=== PATIENT | male | born 1955 | race Caucasian/White ===

== ENCOUNTER 2021-12-05 19:23 | Inpatient (IN) | payer MEDICARE, OTHER, SELFPAY ==
[2021-12-05] VITALS (8 sets, daily range): BP systolic 126–180; BP diastolic 81–114; PULSE 71–80; RESP 12–20; TEMP 36.2–36.7; O2SAT 91–100; BMI 33.5
--- NOTE | ~2021-12-05 | XR_ITS ---
EXAMINATION: XR chest 1V portable Exam Date/Time: 12/05/2021 19:55 CDT HISTORY: stemi Comparison: None available. RESULT: Lines, tubes, and devices: None. Lungs and pleura: Clear. Cardiomediastinal silhouette: Unremarkable cardiomediastinal silhouette. Other: No acute osseous or upper abdominal finding. IMPRESSION: No acute cardiopulmonary process. Reviewed, dictated and finalized at location K.
--- NOTE | 2021-12-05 19:56 | ECG_ITS ---
Measurements Intervals [place] Rate: 79 P: 90 OK: 227 QRS: -5 QRSD: 186 T: 53 QT: 463 QTc: 531 Interpretive Statements SINUS RHYTHM WITH FIRST DEGREE AV BLOCK LEFT BUNDLE BRANCH BLOCK [120+ ms QRS DURATION, 80+ ms Q/S IN V1/V2, 85+ ms R IN I/aVL/V5/V6] ACUTE INFERIOR AND ANTERIOR INJURY PATTERN ABNORMAL ECG NO PREVIOUS ECG AVAILABLE FOR COMPARISON Electronically Signed On 12-06-2021 10:21:26 CDT by George Delacruz M.D.
[2021-12-05 20:00] LABS: Basophils Absolute Auto 0.1 K/mm3 (0.0-0.1); Basophils Percent Auto 0.7 % (0.2-1.2); Eosinophils Absolute Auto 0.1 K/mm3 (0-0.3); Eosinophils Percent Auto 1.2 % (0-4.4); Hematocrit 47.2 % (42.0-52.0); Immature Granulocyte Absolute 0.04 K/mm3 (0.00-0.031); Immature Granulocyte Percent A 0.4 % (0-0.5); Lymphocytes Absolute Auto 2.79 K/mm3 (0.9-3.2); Lymphocytes Percent Auto 28.5 % (18.3-44.2); Mean Corpuscular HGB Conc 33.9 g/dl (32-36); Mean Corpuscular Hemoglobin 28.2 pg (26-34); Mean Corpuscular Volume 83.2 fl (80-100); Mean Platelet Volume 9.9 fl (7.4-10.4); Monocytes Absolute Auto 1.4 K/mm3 (0.1-0.6); Monocytes Percent Auto 14.1 % (2.6-8.5); Neutrophils Absolute Auto 5.4 K/mm3 (1.3-6.7); Neutrophils Percent Auto 55.1 % (45.5-73.1); Platelet Count Result 288 k/mm3 (150-375); Red Blood Count 5.67 M/mm3 (4.6-6.20); Red Cell Distribution Width 15.1 % (11.5-14.5); White Blood Count 9.8 K/mm3 (4.5-10.0)
[2021-12-05 20:01] LABS: Partial Thromboplastin Time 26.8 SECONDS (22.3-36.8)
[2021-12-05 20:03] LABS: Alanine Aminotransferase 32 U/L (6-50); Albumin Level 4.5 g/dL (3.5-5.1); Alkaline Phosphatase 117 U/L (38-126); Anion Gap 10 mmol/L (8-16); Aspartate Amino Transferase 35 U/L (17-59); Bilirubin,Total 0.4 mg/dL (0.2-1.3); Blood Urea Nitrogen 14 mg/dL (9-20); Calcium 9.6 mg/dL (8.4-10.2); Carbon Dioxide 25 mmol/L (22-30); Chloride 110 mmol/L (98-107); Glucose 103 mg/dL (65-110); Potassium 3.4 mmol/L (3.4-5.0); Sodium 145 mmol/L (137-145)
[2021-12-05 20:06] LABS: Troponin I < 0.012 ng/mL (0.000-0.034)
--- NOTE | 2021-12-05 20:12 | ED.CHESTPAIN ---
HPI - Chest Pain General Chief Complaint: Chest Pain Stated Complaint: chest pain History of Present Illness HPI narrative: Patient is a 65-year-old male who presents ER with chest pain. Sudden onset at home. Contacted EMS. In the field EMS declared inferior STEMI. Patient with central pressure and burning pain without radiation. He is diaphoretic with some shortness of breath. No nausea. Has history of TX in the past. He has 1 coronary stent. He took 4 baby aspirin's at home. Related Data Allergies Allergy/AdvReac Type Severity Reaction Status Date / Time ethosuximide Allergy Unknown Anything Verified 08/11/17 10:35 with suxx No Known Allergies Allergy Unverified 02/05/11 10:32 Review of Systems Review of Systems: All systems reviewed & are unremarkable except as noted in HPI and below Constitutional: Constitutional: Denies fever(s) and Reports weakness Comments: Sweats Cardiovascular: Cardiovascular: Reports chest pain, Denies rapid heart rate and Denies radiating jaw, neck or arm pain Respiratory: Respiratory: Denies cough and Reports dyspnea Gastrointestinal: Gastrointestinal: Denies abdominal pain, Denies diarrhea, Reports nausea and Denies vomiting Neurologic: Denies focal weakness and Denies numbness PMFSH Past Medical History Medical History (Updated 12/05/21 @ 21:29 by Ned Romero MD) Coronary artery disease Hyperlipidemia Hypertension Surgical History Surgical History (Updated 12/05/21 @ 20:17 by Chris Scherer MD) Stented coronary artery Social History Social History Smoking status: Current every day smoker Alcohol intake: current Exam Narrative: GENERAL: Ill-appearing, well-nourished, and in moderate distress. HEAD: Normocephalic, atraumatic. EYES: PERRL and EOMI. ENT: Mucous membranes moist. CHEST: Clear to auscultation. No respiratory distress. HEART: Regular rate and rhythm. Normal peripheral pulses. ABDOMEN: Soft, nontender, nondistended. EXTREMITIES: Normal range of motion. No edema. SKIN: Warm, diaphoretic, no rash. NEURO: Alert and oriented x3. PSYCH: Normal mood and affect. Course Course Emergency Course: STEMI activated prehospital. Discussed case with interventional cardiology prior to patient arrival in the ER. Patient arrived and received heparin as well as morphine for pain. While waiting to go to [employer] patient went into V. fib arrest. This occurred at 1943. He received a total of 5 defibrillations at 200 J. He received 1 dose of epinephrine IV. He also received amiodarone 150 mg IV for refractory V. fib shock. Patient then had return of spontaneous circulation at 1950. He is awake alert and oriented x3. He received 4 mg of Zofran after he started having emesis and 1953. I had been in contact with patient's pre-, during, and postarrest. She is aware of the patient's status. Vital Signs Vital signs: Vital Signs Temperature 98.0 F 12/05/21 19:58 Pulse Rate 78 12/05/21 19:58 Respiratory Rate 12 12/05/21 19:58 Blood Pressure 180/114 H 12/05/21 19:58 Pulse Oximetry 99 12/05/21 19:58 Oxygen Delivery Room Air 12/05/21 19:58 Temperature 98.0 F 12/05/21 19:58 Pulse Rate 78 12/05/21 19:58 Respiratory Rate 12 12/05/21 19:58 Blood Pressure 180/114 H 12/05/21 19:58 Pulse Oximetry 99 12/05/21 19:58 Oxygen Delivery Room Air 12/05/21 19:58 MDM - Chest Pain Lab Data Result diagrams: 12/05/21 19:31 12/05/21 19:31 Labs: Lab Results 12/05/21 12/05/21 12/05/21 Range/Units 19:31 19:31 19:31 WBC 9.8 (4.5-10.0) K/mm3 RBC 5.67 (4.6-6.20) M/mm3 Hgb 16.0 (14.0-18.0) g/dL Hct 47.2 (42.0-52.0) % MCV 83.2 (80-100) fl MCH 28.2 (26-34) pg MCHC 33.9 (32-36) g/dl RDW 15.1 H (11.5-14.5) % Plt Count 288 (150-375) k/mm3 MPV 9.9 (7.4-10.4) fl Immature Gran % (Auto) 0.4 (0-0.5) % Neut % (Auto) 55.1 (45.5-7
[2021-12-05 20:13] LABS: Cholesterol 183 mg/dL (0-200); HDL Direct 59 mg/dL; Triglycerides 171 mg/dL (<150)
--- NOTE | 2021-12-05 20:13 | PM.CNCAR ---
Assessment and Plan Assessment and plan (1) STEMI (ST elevation myocardial infarction): Code(s): I21.3 - ST elevation (STEMI) myocardial infarction of unspecified site Status: Acute Assessment and Plan: STEMI, s/p VF arrest, plan emergency LHC, ASA, Ticagrelor, Statin, Heparin, B-eryn and TTE Plan STEMI, s/p VF arrest, plan emergency LHC, ASA, Ticagrelor, Statin, Heparin, B-eryn and TTE History of Present Illness History of Present Illness Consult date/time: 12/05/21 20:13 Reason For Visit: chest pain Narrative: 70 Yrs old male with Hx of CAD and prior PCI 10 years ago presented with acute chest pain started one hour ago, sudden onset, severe retrosternal non radiating tightness no precipitating or relieving factors, associated with sweating and nausea. Soon after arrival to ER he developed VF and with successful defibrillation. Review of Systems Review of Systems: All systems reviewed & are unremarkable except as noted in HPI and below PMFSH Past Medical History Medical History (Updated 12/05/21 @ 20:19 by Chris Scherer MD) Coronary artery disease Hypertension Surgical History Surgical History (Updated 12/05/21 @ 20:17 by Chris Scherer MD) Stented coronary artery Social History Social History Smoking status: Current every day smoker Alcohol intake: current Meds Home Medications and Allergies Allergies Allergy/AdvReac Type Severity Reaction Status Date / Time ethosuximide Allergy Unknown Anything Verified 08/11/17 10:35 with suxx No Known Allergies Allergy Unverified 02/05/11 10:32 Exam Const: General: cooperative, healthy appearing, comfortable and no acute distress Other: Able to lie flat HENMT: Head: normal to inspection, normocephalic and atraumatic General nose exam: Normal nares present and no epistaxis Mouth: Yes moist mucous membranes Eyes: Sclera: sclerae normal Pupils: Equal, round and reactive pupils present Neck: Neck: supple and no JVD Carotids: no bruits Resp: Auscultation: clear to auscultation bilaterally and lung sounds not diminished Other: No chest wall tenderness Cardio: Rate: regular rate Rhythm: regular rhythm Heart sounds: no gallops, no murmurs and no rubs GI: GI Palp: Yes Soft to palpation and No Tenderness to palpation present (GI) Auscultation: normal bowel sounds Skin: General skin exam: normal color, rashes and/or lesions noted and no erythema Other: Warm Neuro: Cranial nerves: Yes Equal, round and reactive pupils present Speech: normal speech Other: No obvious focal deficit or facial asymmetry Extrem: General: no edema Other: Normal capillary refills Intact distal pulses. Results Labs and Meds Result diagrams: 12/05/21 19:31 12/05/21 19:31 Lab results: Cardiac Enzymes 12/05/21 Range/Units 19:31 AST 35 (17-59) U/L Troponin I < 0.012 (0.000-0.034) ng/mL Coagulation 12/05/21 Range/Units 19:31 PT 13.0 (11.1-14.7) Seconds APTT 26.8 (22.3-36.8) SECONDS CBC 12/05/21 Range/Units 19:31 WBC 9.8 (4.5-10.0) K/mm3 RBC 5.67 (4.6-6.20) M/mm3 Hgb 16.0 (14.0-18.0) g/dL Hct 47.2 (42.0-52.0) % Plt Count 288 (150-375) k/mm3 Lymph # (Auto) 2.79 (0.9-3.2) K/mm3 Kinney # (Auto) 1.4 H (0.1-0.6) K/mm3 Eos # (Auto) 0.1 (0-0.3) K/mm3 Baso # (Auto) 0.1 (0.0-0.1) K/mm3 Comprehensive Metabolic Panel 12/05/21 Range/Units 19:31 Sodium 145 (137-145) mmol/L Potassium 3.4 (3.4-5.0) mmol/L Chloride 110 H (98-107) mmol/L Carbon Dioxide 25 (22-30) mmol/L BUN 14 (9-20) mg/dL Creatinine 0.90 (0.7-1.3) mg/dL Glucose 103 (65-110) mg/dL Calcium 9.6 (8.4-10.2) mg/dL AST 35 (17-59) U/L ALT 32 (6-50) U/L Alkaline Phosphatase 117 (38-126) U/L Total Protein 8.0 (6.3-8.2) g/dL Albumin 4.5 (3.5-5.1) g/dL
--- NOTE | 2021-12-05 20:17 | PC.NURSE ---
Addendum entered by Lanie Gasca RN 12/05/21 20:22: Pt's currently in [facility] with daughter. Original Note: This RN and EDP Nick spoke to pt's via phone and updated her on change in pt's condition and transport of pt to lab coordinator. 's name: Beverly Brady (Maggie). PHONE: [phone].
--- NOTE | 2021-12-05 20:19 | WPDCARDPROC ---
Cardiac Cath Procedure Note Date of procedure:: 12/05/21 Performing physician:: Chris Scherer MD Assessment and Plan Additional Plan PROCEDURE 1. LHC and coronary angiogram 2. PCI to culprit lesion of [place] with JAM INDICATION STEMI PROCEDURE DETAILS Consent obtained and access site prepped and draped in sterile fashion Time out was done Sedation was done with versed 1 mg and fentanyl 50 mcg with continuos monitoring and supervision by myself and RN, duration of sedation 26 min. Access Obtained in Rt ENTERTAINER OR VARIETY ARTIST with modified Seldinger technique Coronary angiogram was done using JL and JR HEMODYNAMICS Aorta: 140/70 LV: 20 CORONARY ANGIOGRAM Left main: bifurcates into LAD and LCX, no angiographic significant stenosis LAD: large vessel that gives diagonal branches, no angiographic significant stenosis LCX: Non dominant vessel that gives OM branches, no angiographic significant stenosis RCA: Dominant vessel that gives PDA and rPL, patent stent proximally and mid RCA acute total occlusion with thrombus, distal RCA at bifurcation has 60% stenosis. PCI DETAILS #1 lesion: mid RCA Pre-intervention: 100% occlusion, JAMIE 0 flow, ISR/IST, previously treated lesion, unknown type > 2 years ago Guide catheter: JR4 Guide wire: [employer] used to cross lesion into distal vessel Balloon angioplasty: Ho Pro 3.0 * 12 Stent: Orsiro 3.0 * 18 deployed at [place] of stenosis Post stent dilation with 3.25 * 12 NC ho balloon Post-intervention: 0% residual stenosis COMPLICATION: VF during procedure that was converted with Defib Access site closed with angioseal successfully with intact distal pulses CONCLUSION Successful PCI to mid RCA with one JAM Orsiro 3.0 * 18 JAM post dilated with 3.25 NC balloon VF s/p Defib RECOMMENDATION DAPT Statin TTE Cardiac Rehab Amiodarone infusion for 24 hours
[2021-12-05 20:24] LABS: LDL Cholesterol Direct 86 mg/dL
[2021-12-05 21:37] LABS: Activated Clotting Time 196 SEC (74-137)
[2021-12-05] MEDS: SODIUM CHLORIDE 0.9% IV 1,000 ML 125 ML IV CONT (21:50)
--- NOTE | 2021-12-05 22:09 | ADMGEN ---
This patient, Mina Brady, was admitted to Intensive Care Unit-10 at 2140 on 12/05/2021. Patient/family oriented to hospital policies and general routines including ID bracelet, bed and alarms, visiting hours, pain management, procedures, bathroom and other care routines, personal items, smoking policy, room service/diet, and visiting hours. Information on how to activate the Rapid Response Team has been discussed. Patient/Family are encouraged to report perceived risks to care and to ask questions if they do not understand what they are told or what they should do.
[2021-12-05] MEDS: METOPROLOL TARTRATE 50 MG TAB PO (22:28)
[2021-12-05] MEDS: TICAGRELOR 90 MG TABLET 180 MG PO (22:36)
[2021-12-06] VITALS (24 sets, daily range): BP systolic 114–159; BP diastolic 70–99; PULSE 55–73; RESP 10–18; TEMP 36–37.2; O2SAT 93–100
--- NOTE | 2021-12-06 | ECHO_ITS ---
Patient Info Name: Mina Brady Age: 66 years : 1955 Gender: Male Ht: 74 in Wt: 261 lbs BSA: 2.52 m2 HR: 68 bpm BP: 150 / 85 mmHg Heart Rhythm: Sinus Rhythm Technical Quality: Fair Exam Date: 12/06/2021 8:29 AM Exam Location: [facility] Patient Status: Inpatient Admit Date: 12/06/2021 Staff Ordering Physician: Chris Scherer MD Finance Intern: Linda Angel RDCS Attending Provider: Chris Scherer MD Exam Type: CA echo doppler color flow Study Info Indications - STEMI Complete two-dimensional, color flow and Doppler transthoracic echocardiogram is performed. Summary 1. Complete two-dimensional, color flow and Doppler transthoracic echocardiogram is performed. 2. Left ventricular chamber dimension is mildly enlarged. 3. Left ventricular systolic function is severely reduced, estimated at 25-30%. 4. There is mildly increased left ventricular wall thickness. 5. The left ventricular diastolic function is grade I diastolic dysfunction. 6. The inferior wall, basal inferoseptal, mid inferoseptal, basal anteroseptal, and mid anteroseptal are akinetic. 7. The anterior wall, anterolateral wall, inferolateral wall, apical septum, and apical cap are hypokinetic. 8. Right ventricular systolic function is reduced. 9. There is mild mitral valve regurgitation. 10. There is mild tricuspid valve regurgitation. 11. There is mild pulmonic regurgitation. Left Ventricle Left ventricular chamber dimension is mildly enlarged. Left ventricular systolic function is severely reduced, estimated at 25-30%. There is mildly increased left ventricular wall thickness. The left ventricular diastolic function is grade I diastolic dysfunction. The inferior wall, basal inferoseptal, mid inferoseptal, basal anteroseptal, and mid anteroseptal are akinetic. The anterior wall, anterolateral wall, inferolateral wall, apical septum, and apical cap are hypokinetic. Right Ventricle Right ventricular chamber dimension is normal. Right ventricular systolic function is reduced. Left Atria Left atrial chamber dimension is normal. Right Atria Right atrial chamber dimension is normal. Atrial Septum Intact interatrial septum visualized by color flow imaging. Aortic Valve The aortic valve is trileaflet. There is moderate aortic valve sclerosis. There is no aortic valve stenosis. There is trace aortic valve regurgitation. Pulmonic Valve The pulmonic valve is normal. There is no pulmonic valve stenosis. There is mild pulmonic regurgitation. Mitral Valve The mitral valve has normal leaflets. There is no mitral valve stenosis. There is mild mitral valve regurgitation. Tricuspid Valve The tricuspid valve leaflets are normal. There is no significant tricuspid valve stenosis. There is mild tricuspid valve regurgitation. No pulmonary hypertension, estimated pulmonary arterial systolic pressure is 31 mmHg. Pericardium/Pleural The pericardium appears normal. There is no pericardial effusion. Inferior Vena Cava Dilated inferior vena cava with <50% collapse upon inspiration consistent with elevated right atrial pressure, 15 mmHg. Aorta The aortic root size at the sinus of Valsalva is normal. There is mild aortic atherosclerosis. Left Ventricular Outflow Tract Name Value Normal
[2021-12-06] MEDS: AMIODARONE 360 MG/D5W 200 ML 360 MG/200 ML BAG 33.33 MG IV CONT (00:23)
--- NOTE | 2021-12-06 02:17 | PC.NURSE ---
19:42 Compressions started 19:43 200 joule shock administered 19:43 1 of epinephrine administered 19:43 200 joule shock administered 19:44 200 joule shock administered 19:45 pulse check and compressions continued 19:46 200 joule shock administered 19:47 pulse check and compressions continued 19:47 150 of Amiodarone given 19:48 200 joule shock administered 19:49 200 joule shock administered 19:50 Pulse returned and patient alert 19:51 BP:215/105, 99%, 106 HR 19:52 Pt vomited 500-600 mL 19:54 4mg Zofran administered 19:55 177/110, 97%, 119 HR 20:00 157/105, 98%, 108 HR 20:02 Pt placed on 2L NC for transport 20:04 Pt taken to Heavy Equipment Plumbing Supervisor by dental laboratory technician team *Also see STEMI order sheet*
[2021-12-06] MEDS: oxyCODONE/ACETAMINOPHEN (*CRX) 5-325 MG TABLET 1 TABLET PO ×4 (05:44→22:22)
[2021-12-06] MEDS: AMIODARONE 360 MG/D5W 200 ML 360 MG/200 ML BAG 16.67 MG IV CONT ×2 (05:58→16:40)
[2021-12-06 07:39] LABS: Hematocrit 43.9 % (42.0-52.0); Hemoglobin 14.5 g/dL (14.0-18.0); Mean Corpuscular Hemoglobin 27.8 pg (26-34); Mean Corpuscular Volume 84.3 fl (80-100); Mean Platelet Volume 10.2 fl (7.4-10.4); Platelet Count Result 232 k/mm3 (150-375); Red Blood Count 5.21 M/mm3 (4.6-6.20); Red Cell Distribution Width 15.2 % (11.5-14.5); White Blood Count 9.3 K/mm3 (4.5-10.0)
[2021-12-06 07:51] LABS: Anion Gap 5 mmol/L (8-16); Blood Urea Nitrogen 12 mg/dL (9-20); Calcium 8.7 mg/dL (8.4-10.2); Carbon Dioxide 25 mmol/L (22-30); Chloride 107 mmol/L (98-107); Estimated CRCL calculation 120 ml/min; Estimated Glomerular Filt Rate > 60; Glucose 131 mg/dL (65-110); Magnesium 1.8 mg/dL (1.6-2.3); Phosphorus 3.4 mg/dL (2.5-4.5); Sodium 137 mmol/L (137-145)
--- NOTE | 2021-12-06 08:26 | PM.PNCARD ---
Progress Note: A&P Assessment and Plan (1) STEMI (ST elevation myocardial infarction): Code(s): I21.3 - ST elevation (STEMI) myocardial infarction of unspecified site Status: Acute Assessment and Plan: STEMI, s/p VF arrest, now s/p coronary angiography with PCI to mid RCA with one Orsiro 3.0 x 18 JAM ASA, Brilinta, Statin, B-eryn 2D echo with Doppler Aggressive risk modification for CAD Anticipate discharge tomorrow if he remains stable Continue telemetry (2) Cardiac arrest with ventricular fibrillation: Code(s): I46.9 - Cardiac arrest, cause unspecified; I49.01 - Ventricular fibrillation Status: Acute Assessment and Plan: VF in ED and in dental laboratory assistant s/p defibrillation. Continue amiodarone for at least 24 hours Continue to monitor on telemetry Check BMP, mag in a.m. Additional Plan PROCEDURE 1. LHC and coronary angiogram 2. PCI to culprit lesion of [place] with JAM INDICATION STEMI PROCEDURE DETAILS Consent obtained and access site prepped and draped in sterile fashion Time out was done Sedation was done with versed 1 mg and fentanyl 50 mcg with continuos monitoring and supervision by myself and RN, duration of sedation 26 min. Access Obtained in Rt CABLE DRILLER with modified Seldinger technique Coronary angiogram was done using JL and JR HEMODYNAMICS Aorta: 140/70 LV: 20 CORONARY ANGIOGRAM Left main: bifurcates into LAD and LCX, no angiographic significant stenosis LAD: large vessel that gives diagonal branches, no angiographic significant stenosis LCX: Non dominant vessel that gives OM branches, no angiographic significant stenosis RCA: Dominant vessel that gives PDA and rPL, patent stent proximally and mid RCA acute total occlusion with thrombus, distal RCA at bifurcation has 60% stenosis. PCI DETAILS #1 lesion: mid RCA Pre-intervention: 100% occlusion, JAMIE 0 flow, ISR/IST, previously treated lesion, unknown type > 2 years ago Guide catheter: JR4 Guide wire: [place] used to cross lesion into distal vessel Balloon angioplasty: Ho Pro 3.0 * 12 Stent: Orsiro 3.0 * 18 deployed at [place] of stenosis Post stent dilation with 3.25 * 12 NC ho balloon Post-intervention: 0% residual stenosis COMPLICATION: VF during procedure that was converted with Defib Access site closed with angioseal successfully with intact distal pulses CONCLUSION Successful PCI to mid RCA with one JAM Orsiro 3.0 * 18 JAM post dilated with 3.25 NC balloon VF s/p Defib RECOMMENDATION DAPT Statin TTE Cardiac Rehab Amiodarone infusion for 24 hours Subjective Date/time seen: 12/06/21 08:26 Cardiology follow up for STEMI, VF arrest Stable overnight following cath. Self limiting NSVT (5-6 beats) on telemetry. Vitals stable. No chest pain this morning, no shortness of breath. Denies palpitations. Still has rib soreness from chest compressions. Review of Systems Review of Systems: All systems reviewed & are unremarkable except as noted in HPI and below Exam Const: General: cooperative, healthy appearing, comfortable and no acute distress Other: Able to lie flat HENMT: Head: normal to inspection, normocephalic and atraumatic General nose exam: Normal nares present and no epistaxis Mouth: Yes moist mucous membranes Eyes: Sclera: sclerae normal Pupils: Equal, round and reactive pupils present Neck: Neck: supple and no JVD Carotids: no bruits Resp: Auscultation: clear to auscultation bilaterally and lung sounds not diminished Other: No chest wall tenderness Cardio: Rate: regular rate Rhythm: regular rhythm Heart sounds: no gallops, no murmurs and no rubs GI: Auscultation: normal bowel sounds Skin: General skin exam: normal color, rashes and/or lesions noted and no erythema Other: Warm. R groin arterial access site free from bleeding, hematoma, bruit. Neuro: Cranial nerves: Yes Equal, round and reactive pupils present Speech: normal speech Other:
[2021-12-06] MEDS: ASPIRIN 81 MG ENTERIC TABLET PO (08:34)
[2021-12-06] MEDS: ATORVASTATIN 40 MG TABLET 80 MG PO (08:34)
[2021-12-06] MEDS: lisinopriL 5 MG TABLET PO (08:34)
[2021-12-06] MEDS: METOPROLOL TARTRATE 50 MG TAB PO ×2 (08:34→20:12)
[2021-12-06] MEDS: TICAGRELOR 90 MG TABLET PO ×2 (08:34→20:12)
[2021-12-06] MEDS: SODIUM CHLORIDE 0.9% IV 1,000 ML 100 ML IV CONT (08:41)
--- NOTE | 2021-12-06 09:21 | WPDCNINT ---
Assessment and Plan Assessment and plan (1) STEMI (ST elevation myocardial infarction): Code(s): I21.3 - ST elevation (STEMI) myocardial infarction of unspecified site Status: Acute Assessment and Plan: Patient presented with inferior ST-elevation myocardial injury, status post VFib arrest in the ER, status post PTCA/PCI with JAM x1 to mid RCA -cardiology following patient closely -continue aspirin, Brilinta, statin, beta-eryn and MARLA-inhibitor (2) Cardiac arrest with ventricular fibrillation: Code(s): I46.9 - Cardiac arrest, cause unspecified; I49.01 - Ventricular fibrillation Status: Acute Assessment and Plan: Patient had multiple episodes of VFib in the ER as well as on the cardiac corn lab technician requiring defibrillation -continue amiodarone infusion for 24 hours per Cardiology -continue to monitor (3) Cardiomyopathy: Code(s): I42.9 - Cardiomyopathy, unspecified Status: Acute Assessment and Plan: 12/06/2021 echocardiogram shows LV systolic function is severely reduced with EF 25-30%, grade 1 diastolic dysfunction. Inferior wall, basal inferoseptal, mid inferoseptal, basal anteroseptal, and mid anteroseptal are akinetic.The anterior wall, anterolateral wall, inferolateral wall, apical septum,and apical cap are hypokinetic. Grade 1 diastolic dysfunction -probably related to stunned myocardium secondary to inferior wall OK -continue beta eryn, MARLA-inhibitor -cardiology is following -may require repeat echo in a few weeks Plan Continue amiodarone infusion Additional Plan Nutrition: Heart healthy diet Updated patient with his condition and plan of care. I answered all questions Code status: Full code Critical care time spent: 44 minutes This dictation may have been done utilizing a voice recognition system. Attempts have been made to correct errors. However, there may be uncorrected grammatical, spelling, and recognition errors present. Due to a high probability of clinically significant, life threatening deterioration, the patient required my highest level of preparedness to intervene emergently and I personally spent this critical care time directly and personally managing the patient. This critical care time included obtaining a history; examining the patient; pulse oximetry; ordering and review of studies; arranging urgent treatment with development of a management plan; evaluation of patient's response to treatment; frequent reassessment; and discussions with other providers. It was exclusive of separately billable procedures and treating other patients and teaching time. Please see Assessment and Plan section and the rest of the note for further information on patient assessment and treatment Diaper Machine Tender Consult Note Consult date: 12/06/21 Reason for consult: STEMI, VFib arrest HPI: Mina Brady is a 66 year old male with past medical history of coronary artery disease status post stent to the RCA 10 years ago, hyperlipidemia, essential hypertension, presented the ED with sudden onset chest pain, EMS was contacted and inferior STEMI was declared in the field patient was complaining of chest pain which felt like a pressure and burning pain without any radiation. Patient was also complaining of shortness of breath and diaphoresis. He did take 4 baby aspirin at home, upon arrival at the ER,pt had a v fib arrest with ROSC within 8 minutes, patient was given amiodarone IV, shock x5, CPR. Patient was awake and alert and oriented x3 post arrest patient was taken to cardiac corn lab technician where he was found to have total occlusion of the mid RCA, with successful PTCA/PCI with stent x1 and balloon angioplasty. Patient did have VFib arrest during the procedure was converted with defibrillation. Patient was transferred to the ICU for further management Patient seen and examined the ICU this morning, complains of reproducible chest pain likely related to CPR, denies any shortness of breath,
--- NOTE | 2021-12-06 10:37 | PC.NURSE ---
Cardiopulmonary Rehab Services flyer was given to patient.
[2021-12-06] MEDS: MELATONIN 3 MG TABLET PO (21:00)
[2021-12-07] VITALS (18 sets, daily range): BP systolic 104–156; BP diastolic 63–98; PULSE 54–81; RESP 11–20; TEMP 36.4–37; O2SAT 95–99
[2021-12-07] MEDS: oxyCODONE/ACETAMINOPHEN (*CRX) 5-325 MG TABLET 1 TABLET PO ×2 (03:11→07:15)
[2021-12-07 04:39] LABS: Basophils Percent Auto 0.4 % (0.2-1.2); Eosinophils Absolute Auto 0.1 K/mm3 (0-0.3); Hematocrit 42.6 % (42.0-52.0); Hemoglobin 14.2 g/dL (14.0-18.0); Immature Granulocyte Absolute 0.02 K/mm3 (0.00-0.031); Immature Granulocyte Percent A 0.2 % (0-0.5); Lymphocytes Absolute Auto 2.05 K/mm3 (0.9-3.2); Mean Corpuscular HGB Conc 33.3 g/dl (32-36); Mean Corpuscular Hemoglobin 27.7 pg (26-34); Mean Platelet Volume 10.4 fl (7.4-10.4); Monocytes Absolute Auto 1.3 K/mm3 (0.1-0.6); Monocytes Percent Auto 14.7 % (2.6-8.5); Neutrophils Absolute Auto 5.4 K/mm3 (1.3-6.7); Neutrophils Percent Auto 60.7 % (45.5-73.1); Platelet Count Result 235 k/mm3 (150-375); Red Blood Count 5.13 M/mm3 (4.6-6.20); White Blood Count 8.9 K/mm3 (4.5-10.0)
[2021-12-07 04:49] LABS: Alanine Aminotransferase 57 U/L (6-50); Alkaline Phosphatase 99 U/L (38-126); Anion Gap 4 mmol/L (8-16); Aspartate Amino Transferase 132 U/L (17-59); Bilirubin,Total 0.6 mg/dL (0.2-1.3); Blood Urea Nitrogen 14 mg/dL (9-20); Calcium 8.8 mg/dL (8.4-10.2); Carbon Dioxide 27 mmol/L (22-30); Chloride 105 mmol/L (98-107); Estimated CRCL calculation 106 ml/min; Estimated Glomerular Filt Rate > 60; Glucose 111 mg/dL (65-110); Magnesium 1.9 mg/dL (1.6-2.3); Phosphorus 2.9 mg/dL (2.5-4.5); Potassium 3.9 mmol/L (3.4-5.0); Sodium 136 mmol/L (137-145)
--- NOTE | 2021-12-07 08:39 | PM.PNCARD ---
Progress Note: A&P Assessment and Plan (1) STEMI (ST elevation myocardial infarction): Code(s): I21.3 - ST elevation (STEMI) myocardial infarction of unspecified site Status: Acute Assessment and Plan: STEMI, s/p VF arrest, now s/p coronary angiography with PCI to mid RCA with one Orsiro 3.0 x 18 JAM ASA, Brilinta, Statin, B-eryn 2D echo with Doppler reviewed, findings and recommendations described below. Aggressive risk modification for CAD He can me downgraded to IMU Continue telemetry (2) Cardiac arrest with ventricular fibrillation: Code(s): I46.9 - Cardiac arrest, cause unspecified; I49.01 - Ventricular fibrillation Status: Acute Assessment and Plan: VF in ED and in director of laboratory operations s/p defibrillation. Amiodarone has been discontinued due to bradycardia overnight He has not had any recurrences of ventricular arrhythmias since discontinuation of amiodarone Continue metoprolol Continue to monitor on telemetry Electrolytes at goal this morning Check BMP, mag in a.m. (3) Cardiomyopathy: Code(s): I42.9 - Cardiomyopathy, unspecified Status: Acute Assessment and Plan: Ischemic. Not in decompensated heart failure currently. He has been started on medical therapy with Entresto, spironolactone, metoprolol. First doses of Entresto and spironolactone administered this morning. Monitor blood pressure and renal function. Yesterday afternoon after the review of his echocardiogram results I discussed these results with him at length. We discussed medical therapy for his cardiomyopathy and the concept does a life vest and possibility for need for permanent ICD in the future if his ejection fraction does not recover. Discussed the rationale for this being increased risk for sudden cardiac related to ventricular arrhythmias. Presently, he is declining LifeVest but states that he would like to talk it over with his caregivers and would be prepared to talk to me about it up my follow-up visit. I encouraged that he take some time to think about this before making a decision as he did have ventricular arrhythmias during this hospitalization and once again is at higher risk because of his systolic dysfunction. Will discuss once again with him later today when his caregiver is present to be involved in the conversation. Guideline directed medical therapy with Entresto, spironolactone, metoprolol. optimization of medical therapy as an outpatient after tolerance to starting doses has been observed. monitor blood pressure closely monitor renal function with daily BMP anticipate discharge tomorrow if tolerance to medications is observed. Subjective Date/time seen: 12/07/21 08:39 Interval history: feeling well this morning. Complained of inability to sleep last night. Still having some chest pain related to chest compressions. Denies any shortness of breath, palpitations. Review of Systems Review of Systems: All systems reviewed & are unremarkable except as noted in HPI and below Exam Const: General: cooperative, healthy appearing, comfortable and no acute distress Other: Able to lie flat HENMT: Head: normal to inspection, normocephalic and atraumatic General nose exam: Normal nares present and no epistaxis Mouth: Yes moist mucous membranes Eyes: Sclera: sclerae normal Pupils: Equal, round and reactive pupils present Neck: Neck: supple and no JVD Carotids: no bruits Resp: Auscultation: clear to auscultation bilaterally and lung sounds not diminished Other: No chest wall tenderness Cardio: Rate: regular rate Rhythm: regular rhythm Heart sounds: no gallops, no murmurs and no rubs GI: Auscultation: normal bowel sounds Skin: General skin exam: normal color, rashes and/or lesions noted and no erythema Other: Warm. R groin arterial access site free from bleeding, hematoma, bruit. Neuro: Cranial nerves: Yes Equal, round and reactive pup
[2021-12-07] MEDS: ASPIRIN 81 MG ENTERIC TABLET PO (08:41)
[2021-12-07] MEDS: LIDOCAINE 5% PATCH 1 PATCH TRANSDERM (08:41)
[2021-12-07] MEDS: METOPROLOL TARTRATE 50 MG TAB PO ×2 (08:41→20:00)
[2021-12-07] MEDS: ATORVASTATIN 40 MG TABLET 80 MG PO (08:41)
[2021-12-07] MEDS: SPIRONOLACTONE 25 MG TABLET PO (08:42)
[2021-12-07] MEDS: SACUBITRIL/VALSARTAN 24-26 MG TABLET 1 TAB PO ×2 (08:42→20:00)
[2021-12-07] MEDS: TICAGRELOR 90 MG TABLET PO ×2 (08:42→20:01)
--- NOTE | 2021-12-07 08:42 | WPDINTPN ---
Progress Note: A&P Assessment and Plan (1) STEMI (ST elevation myocardial infarction): Code(s): I21.3 - ST elevation (STEMI) myocardial infarction of unspecified site Status: Acute Assessment and Plan: Patient presented with inferior ST-elevation myocardial injury, status post VFib arrest in the ER, status post PTCA/PCI with JAM x1 to mid RCA -cardiology following patient closely -continue aspirin, Brilinta, statin, beta-eryn and MARLA-inhibitor (2) Cardiac arrest with ventricular fibrillation: Code(s): I46.9 - Cardiac arrest, cause unspecified; I49.01 - Ventricular fibrillation Status: Acute Assessment and Plan: Patient had multiple episodes of VFib in the ER as well as on the cardiac analytical lab analyst requiring defibrillation - Completed amiodarone infusion for 24 hours per Cardiology. Now off -electrolytes in acceptable range -continue to monitor (3) Cardiomyopathy: Code(s): I42.9 - Cardiomyopathy, unspecified Status: Acute Assessment and Plan: 12/06/2021 echocardiogram shows LV systolic function is severely reduced with EF 25-30%, grade 1 diastolic dysfunction. Inferior wall, basal inferoseptal, mid inferoseptal, basal anteroseptal, and mid anteroseptal are akinetic.The anterior wall, anterolateral wall, inferolateral wall, apical septum,and apical cap are hypokinetic. Grade 1 diastolic dysfunction -probably related to stunned myocardium secondary to inferior wall NE -continue beta eryn, MARLA-inhibitor -cardiology is following -plan for outpatient follow-up and repeat echo (4) Musculoskeletal chest pain: Code(s): R07.89 - Other chest pain Status: Acute Assessment and Plan: Secondary to CPR. No fracture seen on chest x-ray Will try a Lidoderm patch Continue p.r.n. Edwards Plan Transfer out of ICU today Additional Plan Nutrition: Heart healthy diet DVT prophylaxis: Lovenox Updated patient with his condition and plan of care. I answered all questions Code status: Full code Incentive spirometry, up in chair, transfer out of ICU today Subjective Date/time seen: 12/07/21 08:42 Patient complains of pain in the chest at the site of CPR. He rates his pain at 4/10 sharp achy with no radiation. Pain gets worse with deep breathing and coughing. Pain gets worse with movement. Patient denies fever, shortness of breath, cough, nausea vomiting, abdominal pain,, diarrhea, headache or constipation. All other systems were reviewed and were negative Review of Systems Review of Systems: All systems reviewed & are unremarkable except as noted in HPI and below Exam Narrative: General: Very pleasant gentleman in no acute distress HEENT: Pupils equal and reactive, sclera is clear, moist oral mucosa Neck: Supple, no lymphadenopathy Respiratory: Clear to auscultation bilateral, adequate air entry, patient is tender on deep palpation of sternum. No crepitus felt on exam Cardiac: S1-S2 was normal with occasional PACs Abdomen: Soft, nondistended, nontender, normoactive bowel sounds Extremities: No edema, abdomen pedal pulses, right groin site with no ecchymosis or hematoma Neuro: Patient is awake, alert, oriented x3, nonfocal Skin: Intact, no lesions noted. No bruising seen on scan of anterior chest Psych: Normal mentation and affect Objective Data Vital Signs Vital Signs: Vital Signs - 24 hr 12/06/21 10:00 12/06/21 11:55 12/06/21 11:59 Temperature 36.8 C Pulse Rate 66 65 Respiratory Rate 13 16 Blood Pressure 153/98 H 153/98 H Pulse Oximetry 100 100 99 Oxygen Delivery Nasal Cannula Oxygen Flow Rate 2 12/06/21 12:00 12/06/21 14:00 12/06/21 14:00 Temperature 36.8 C Pulse Rate 70 58 L 62 Respiratory Rate 14 Blood Pressure 125/85 Pulse Oximetry 99 Oxygen Delivery Oxygen Flow Rate 12/06/21 16:00 12/06/21 16:00 12/06/21 16:00 Temperature 37.2 C Pulse Rate 64 64 Respiratory Rate 13 Blood Pressure 114/70
[2021-12-07] MEDS: ZOLPIDEM TARTRATE (*CRX) 5 MG TABLET PO (21:51)
[2021-12-08] VITALS (9 sets, daily range): BP systolic 128–150; BP diastolic 73–91; PULSE 60–69; RESP 15–18; TEMP 36.5–36.9; O2SAT 97–98
[2021-12-08 04:47] LABS: Hematocrit 44.7 % (42.0-52.0); Hemoglobin 15.2 g/dL (14.0-18.0); Mean Corpuscular Volume 82.5 fl (80-100); Mean Platelet Volume 10.9 fl (7.4-10.4); Platelet Count Result 256 k/mm3 (150-375); Red Blood Count 5.42 M/mm3 (4.6-6.20); Red Cell Distribution Width 14.6 % (11.5-14.5); White Blood Count 8.3 K/mm3 (4.5-10.0)
[2021-12-08 05:04] LABS: Alanine Aminotransferase 48 U/L (6-50); Albumin Level 4.1 g/dL (3.5-5.1); Alkaline Phosphatase 112 U/L (38-126); Anion Gap 6 mmol/L (8-16); Aspartate Amino Transferase 79 U/L (17-59); Bilirubin,Total 1.1 mg/dL (0.2-1.3); Blood Urea Nitrogen 8 mg/dL (9-20); Carbon Dioxide 24 mmol/L (22-30); Chloride 107 mmol/L (98-107); Estimated CRCL calculation 121 ml/min; Estimated Glomerular Filt Rate > 60; Glucose 124 mg/dL (65-110); Magnesium 1.8 mg/dL (1.6-2.3); Potassium 3.6 mmol/L (3.4-5.0); Sodium 137 mmol/L (137-145)
[2021-12-08] MEDS: ATORVASTATIN 40 MG TABLET 80 MG PO (08:04)
[2021-12-08] MEDS: SACUBITRIL/VALSARTAN 24-26 MG TABLET 1 TAB PO (08:04)
[2021-12-08] MEDS: METOPROLOL TARTRATE 50 MG TAB PO (08:04)
[2021-12-08] MEDS: TICAGRELOR 90 MG TABLET PO (08:04)
[2021-12-08] MEDS: SPIRONOLACTONE 25 MG TABLET PO (08:04)
[2021-12-08] MEDS: LIDOCAINE 5% PATCH 1 PATCH TRANSDERM (08:04)
[2021-12-08] MEDS: ENOXAPARIN 40 MG/0.4 ML SYRINGE SUB-Q (08:06)
[2021-12-08] MEDS: ASPIRIN 81 MG ENTERIC TABLET PO (08:08)
--- NOTE | 2021-12-08 14:40 | PM.DS ---
DS: Admitting Diagnosis Discharge Date 12/08/2021 Admitting Diagnosis STEMI DS: Discharge Diagnosis Discharge Diagnosis (1) STEMI (ST elevation myocardial infarction): Code(s): I21.3 - ST elevation (STEMI) myocardial infarction of unspecified site Status: Acute Assessment and Plan: The patient was admitted with a STEMI. Initial EKG showed ST elevation inferiorly and anterolaterally with an underlying LBBB pattern. He was taken to the clinical laboratory director emergently by Dr. Scherer. He had a stent present in the proximal RCA and mid RCA (in stent restenosis?) total occlusion with thrombus. The distal RCA had a 60% stenosis at the bifurcation which we will treat medically The patient underwent stenting with an Orisiro 3.0 X 18 mm drug-eluting stent with good results. He was started on guideline directed therapy with Brilinta and his aspirin and high-dose statin therapy were continued. (2) Cardiac arrest with ventricular fibrillation: Code(s): I46.9 - Cardiac arrest, cause unspecified; I49.01 - Ventricular fibrillation Status: Acute Assessment and Plan: The patient had a VFib arrest in the emergency room requiring 5 defibrillations and IV amiodarone and also in the clinical laboratory director requiring CPR and defibrillations.. He was kept on amiodarone for 24 hours and had no recurrences. He had no neurologic sequelae. He did have some PVCs and a 7 beat run of ventricular tachycardia on telemetry which I noted today. Yesterday and today we discussed a Life Vest to protect the patient against lethal arrhythmias. There was some discussion between And Mrs. Brady about this but Mr. Brady has declined a LifeVest. He tolerated moderate dose beta-eryn therapy. (3) Cardiomyopathy: Code(s): I42.9 - Cardiomyopathy, unspecified Status: Acute Assessment and Plan: The patient's echo shows surprisingly poor LV function with mild LV enlargement and ejection fraction 25-30%. He has diastolic dysfunction. The inferior wall, basal inferoseptal, mid inferoseptal basal anteroseptal and mid anteroseptal segments were all akinetic. The anterior wall anterolateral wall inferolateral wall apical segment and apex were all hypokinetic. Right ventricular function was also reduced. There is mild mitral, tricuspid and pulmonic insufficiency. The patient was started on guideline directed medical therapy which he tolerated. (4) Musculoskeletal chest pain: Code(s): R07.89 - Other chest pain Status: Acute Assessment and Plan: Musculoskeletal chest pain due to CPR. The patient has some chest wall soreness to Percocet and lidocaine patches, but declined anything other than Tylenol on discharge. (5) Hypercholesterolemia: Code(s): E78.00 - Pure hypercholesterolemia, unspecified Status: Acute Assessment and Plan: The patient was taking atorvastatin 80 mg daily at home and his total cholesterol was 183 with an LDL of 86. He did admit to skipping some doses recently. (6) CAD (coronary artery disease): Code(s): I25.10 - Atherosclerotic heart disease of [place] coronary artery without angina pectoris Status: Acute Assessment and Plan: History of CAD and remote RCA stent. Plan Guideline directed medical therapy with aspirin, atorvastatin, metoprolol, Entresto, spironolactone and Brilinta. He was encouraged to take all his medications regularly common caution that he uses specially make sure he takes his aspirin and Brilinta otherwise risk stent thrombosis and another heart attack which could lead to . Patient and his received excess extensive counseling about diet, activity, follow-up, warning signs etc. The patient previously saw Dr. Smiht but was in the process of changing to a primary care doctor at [facility] as well as a shape brick molder at [facility]. We will see him for follow-up in 1-2 weeks and then transition care to his new shape brick molder. He was given contact infor
== END 2021-12-08 15:35 | disposition home or self-care (01) | DRG 246 ==
LOC: ANHED 21:29 → ANHICU 21:48
PROVIDERS: Internal Medicine; Admitting Provider Internal Medicine Interventional Cardiology; Emergency Provider Emergency Medicine; PCP Internal Medicine; Visit Provider Internal Medicine Cardiovascular Disease
PROC: 4A023N7 Measurement of Cardiac Sampling and Pressure, Left Heart, Percutaneous Approach (ICD-10-PCS; CPT 93452; principal; 2021-12-05 19:55)
PROC: 027034Z Dilation of Coronary Artery, One Artery with Drug-eluting Intraluminal Device, Percutaneous Approach (ICD-10-PCS; 2021-12-05 19:55)
PROC: 027034Z Dilation of Coronary Artery, One Artery with Drug-eluting Intraluminal Device, Percutaneous Approach (ICD-10-PCS; 2021-12-05 19:55)
DX: I21.3 ST elevation (STEMI) myocardial infarction of unspecified site (principal); I49.01 Ventricular fibrillation; I46.2 Cardiac arrest due to underlying cardiac condition; I42.9 Cardiomyopathy, unspecified; I47.2 Ventricular tachycardia; I97.791 Other intraoperative cardiac functional disturbances during other surgery; I25.10 Atherosclerotic heart disease of native coronary artery without angina pectoris; Z95.5 Presence of coronary angioplasty implant and graft; E78.5 Hyperlipidemia, unspecified; I10 Essential (primary) hypertension; F17.210 Nicotine dependence, cigarettes, uncomplicated; R07.89 Other chest pain; I44.7 Left bundle-branch block, unspecified; E78.00 Pure hypercholesterolemia, unspecified; Y84.0 Cardiac catheterization as the cause of abnormal reaction of the patient, or of later complication, without mention of misadventure at the time of the procedure; Y92.238 Other place in hospital as the place of occurrence of the external cause
CPT/HCPCS: 36415; 71045; 80048; 80053; 80061; 83735; 84100; 84484; 85025; 85027; 85610; 85730; 86850; 86900; 86901; 93005; 93306; 93458; 99291; A9270; C1725; C1760; C1769; C1874; C1887; C9606; G0269; J0171; J0282; J0330; J0583; J1644; J1650; J2250; J2270; J3010; J7030; J7040; J7050

== ENCOUNTER 2024-08-17 14:19 | Observation (INO) | payer MEDICARE, OTHER, SELFPAY ==
--- NOTE | ~2024-08-17 | CT_ITS ---
EXAMINATION: CT brain wo con DATE: 08/17/2024 15:17 INDICATION: Anticoagulated patient with head injury post fall TECHNIQUE: Computed tomography (CT) of the head was performed without intravenous contrast. Sagittal and coronal reconstructions were performed. The mA was adjusted according to patient size. Iterative reconstruction technique was employed. The dose-length product was 756.67 mGy-cm. COMPARISON: None FINDINGS: No fracture. No acute intracranial hemorrhage, acute infarction or abnormal extra axial fluid collect ion. There is mild to moderate scattered white matter hypoattenuation consistent with chronic small v essel ischemic disease. Ventricles are normal and symmetric. No mass/mass effect. Intracranial calcif ied cerebral atherosclerosis is noted at the bilateral vertebral arteries and carotid siphons. The or bits, paranasal sinuses and mastoid air cells are normal. IMPRESSION: 1. No fracture or acute intracranial process. 2. Mild to moderate scattered white matter hypoattenuation consistent with chronic small vessel ische domenica disease. Reviewed, dictated and finalized at location A. RVISOR SHRIMP POND IMPRESSION: 1. No fracture or acute intracranial process. 2. Mild to moderate scattered white matter hypoattenuation consistent with hedge trimmer urbano small vessel ischemic disease.
--- NOTE | ~2024-08-17 | XR_ITS ---
HISTORY: R SIDED RIB PAIN AFTER FALL COMPARISON: None TECHNIQUE: 3 limited views of the right ribs were performed. FINDINGS: No acute largely displaced fracture is appreciated. The adjacent right lung is unremarkable. Bone mineralization is age-appropriate. IMPRESSION: Limited evaluation of the right ribs secondary to positioning, likely also patient's gloria erance for which cross-sectional imaging (noncontrast enhanced CT examination of the chest) is recomm ended for further evaluation. Reviewed, dictated and finalized at location A. ENDER CUTTER IMPRESSION: Limited evaluation of the right ribs secondary to positioning, lik melissa also patient's tolerance for which cross-sectional imaging (noncontrast enh anced CT examination of the chest) is recommended for further evaluation.
--- NOTE | ~2024-08-17 | CT_ITS ---
History: Remote history of a fall PROCEDURE: CT cervical spine without intravenous contrast. COMPARISON: None TECHNIQUE: Multiple contiguous axial images of the cervical spine were performed without the administration of i ntravenous contrast. DLP: 488 mGy-cm FINDINGS: Preservation of the normal curvature of the cervical spine is identified. No acute fractures are present. The bilateral lung apices are unremarkable. Extensive extraluminal air is identified to the right of midline within the soft tissues of the neck and chest, without a pneumothorax appreciated. The airway is patent. Impression: Extensive extraluminal air is identified to the right of midline within the soft tissues of the neck and chest, without a pneumothorax appreciated. No acute fracture within the cervical spine. Reviewed, dictated and finalized at location A. PRINT PROCESSOR Impression: Extensive extraluminal air is identified to the right of midline within the sof t tissues of the neck and chest, without a pneumothorax appreciated. No acute fracture within the cervical spine.
--- NOTE | ~2024-08-17 | XR_ITS ---
CHEST RADIOGRAPH, PA AND LATERAL CLINICAL HISTORY: Recheck pneumothorax . COMPARISON: Reference is made to a CT examination of the chest dated 08/17/2024 TECHNIQUE: PA and lateral views of the chest. FINDINGS The left mid lung is partially obscured due to pacemaker generator. Wires project over the right atrium and right ventricle. The remainder of the cardiomediastinal silhouette is otherwise unremarkable. The previously identified tiny lateral pneumothorax (with 3 mm of separation) was only visualized on dedicated cross-sectional imaging. No discrete pneumothorax enlargement is appreciated on today's bria dy to suggest visualization with plain film evaluation. Nonvisualization of the right-sided rib fractures, seen on cross-sectional imaging performed less hima n 24 hours earlier. Platelike atelectasis within the right mid to lower lung field. Bibasilar atelectasis is suspected on lateral view. IMPRESSION: Bibasilar atelectasis. No interval progression of the right-sided tiny lateral pneumothorax is appreciated on plain film yonis luation. Reviewed, dictated and finalized at location A. ITIONIST PUBLIC HEALTH IMPRESSION: Bibasilar atelectasis. No interval progression of the right-sided tiny lateral pneumothorax is appreci ated on plain film evaluation.
--- NOTE | ~2024-08-17 | CT_ITS ---
Clinical indication:Remote history of a fall with right-sided rib pain COMPARISON:Reference is made to a nondiagnostic plain film evaluation of the right ribs, performed on the same day TECHNIQUE: Multiple contiguous axial images of the chest were performed without the administration of intravenous contrast. FINDINGS: Acute nondisplaced fracture of the right first rib is identified, the source of the air within the so ft tissues of the supraclavicular region on CT of the cervical spine The sternum and manubrium are intact, without acute fracture. The right 5th rib is fractured in 2 separate places, along the lateral as well as the anterior margin . The right 6th rib demonstrates a nondisplaced fracture. No acute fracture is identified within the seventh, eighth or ninth ribs. A small right-sided pneumothorax is identified with only 3 mm of separation. IMPRESSION: Acute nondisplaced fracture of the right first rib. The right fifth rib is fractured in 2 separate places and the right sixth rib demonstrates a nondispl aced fracture. Small right-sided pneumothorax with only 3 mm of separation. No additional fractures. Reviewed, dictated and finalized at location A. COLLECTION SPECIALIST IMPRESSION: Acute nondisplaced fracture of the right first rib. The right fifth rib is fractured in 2 separate places and the right sixth rib d emonstrates a nondisplaced fracture. Small right-sided pneumothorax with only 3 mm of separation. No additional fractures.
--- OUTSIDE RECORDS SUMMARY | 2024-08-17 14:21 | XMS_ITS | Clinical Summary ---
Author Organization [facility] Address [address] [place] [address] Care Team Providers Care Airport Maintenance Laborer Name Role Phone Kris Velazquez MD Primary Care Provider [phone] Allergies Active Allergy Reactions Criticality Noted Date Comments Sux-Cert 1000 Other (See comments) Low 04/29/2019 cramping Medications econazole 1 % cream Apply to affected area of toenails qday. 85 g 6 02/22/2023 Active atorvastatin (LIPITOR) 80 mg tablet Take 1 tablet (80 mg total) by mouth daily Take at night 90 tablet 3 09/15/2023 09/15/19 25 Active clopidogreL (PLAVIX) 75 mg tablet Take 1 tablet (75 mg total) by mouth daily 90 tablet 3 09/15/2023 09/15/19 25 Active empagliflozin (JARDIANCE) 10 mg tablet Take 1 tablet (10 mg total) by mouth daily 90 tablet 3 09/15/2023 09/15/19 25 Active sacubitriL-vals lindy (ENTRESTO) 49-51 mg tabletIndicatio ns:chronic heart failure Take 1 tablet by mouth 2 (two) times a day 180 tablet 3 09/15/2023 09/15/19 25 Active spironolactone (ALDACTONE) 25 mg tablet Take 1 tablet (25 mg total) by mouth daily 90 tablet 3 09/15/2023 09/15/19 25 Active metoprolol XL (TOPROL-XL) 100 mg 24 hr tablet Take 1 tablet (100 mg total) by mouth daily 90 tablet 3 09/15/2023 09/15/19 25 Active aspirin 81 mg enteric coated tabletIndicatio ns:prevention of thrombosis Take 1 tablet (81 mg total) by mouth daily 30 tablet 11 10/10/2023 10/10/19 25 Active fluocinonide (LIDEX) 0.05 % external solution APPLY TO THE AFFECTED AREA OF SCALP DAILY 60 mL 5 03/19/2024 Active tamsulosin (FLOMAX) 0.4 mg extended release capsuleIndicati ons:Post-void dribbling,Weak urinary stream Take 1 capsule (0.4 mg total) by mouth daily 90 capsule 3 04/10/[address] (PROTONIX) 40 mg EC tablet Take 1 tablet (40 mg total) by mouth daily 30 tablet 1 08/02/2024 10/02/19 25 Active Active Problems Problem Noted Date Diagnosed Date Benign prostatic hyperplasia with post-void drib can 08/02/2024 Assessment & Plan (08/02/2024 12:13 PM MARINE EQUIPMENT TEST ENGINEER): To consider surgical procedure with Urology. S/P ICD (internal cardiac defibrillator) procedu re 03/11/2024 Ischemic cardiomyopathy 03/01/2024 Assessment & Plan (08/02/2024 12:13 PM MARINE EQUIPMENT TEST ENGINEER): Doing much better with biventricular ICD. Resynchronization therapy seems to have helped. No signs or symptoms of CHF LBBB (left bundle branch block) 03/01/2024 CAD (coronary artery disease) 10/09/2023 Assessment & Plan (01/22/2024 12:33 PM CDT): Discussed meds for cardiomyopathy. Coronary artery disease invo lving [place] coronary artery of [place] heart without angina pectoris 08/04/2023 Assessment & Plan (08/04/2023 11:25 AM MARINE EQUIPMENT TEST ENGINEER): Asymptomatic at present. Unfortunately continues to smoke. Is on beta-blockers, aspirin, clopidogrel, and atorvastatin high dose. Also now on Entresto, Jardiance and spironolactone for cardiomyopathy. Recent echo to be reviewed by Cardiology; certainly the area in the mitral valve may be of concern. I have asked the patient to discuss a possible cardiac MRI if the certified orthoptist feels that this may be significant. Mixed hyperlipidemia 08/04/2023 Assessment & Plan (01/22/2024 12:33 PM CDT): Doing well continue high-dose statin Assessment & Plan (08/04/2023 11:25 AM MARINE EQUIPMENT TEST ENGINEER): Continue statin. Cigarette nicotine dependence without complicati on 08/04/2023 Assessment & Plan (01/22/2024 12:32 PM CDT): To quit smoking soon Assessment & Plan (08/04/2023 11:26 AM MARINE EQUIPMENT TEST ENGINEER): Of course encouraged to quit smoking. Will do lung screening. 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 09/28/2020 Chondromalacia of right lateral tibial plateau 0 09/28/2020 Essential (primary) hypertension 06/10/2019 Right anterior knee pain 05/09/2019 Complex tear of medial menis cus of right knee as current injury 05/09/2019 Chronic pain of right knee 04/29/2019 Effusion of right knee 04/29/2019 Solitary pulmonary nodule 06/18/2018 Diastolic dysfunction 06/18/2018 Overview (03/05/2024): loweset 40 Ventricular premature depolarization 06/17/2016 Pulmonary embolism 08/20/2015 History of pulmonary embolism 08/19/2015 Snoring 06/09/2015 Obesity, unspecified 06/10/2014 Lumbar spinal stenosis 08/07/2012 Assessment & Plan (08/02/2024 12:15 PM MARINE EQUIPMENT TEST ENGINEER): Check CT spine Non-ST elevation (NSTEMI) myocardial infarction (CMS/HCC) 05/17/2012 Tobacco use disorder, continuous 05/17/2012 Screening for prostate cancer Encounters Date Type Department Care Team Description 08/16/2024 Telephone [facility] Sched[facility] [address] [place] [address] Linda David 08/13/2024 [facility] [address] [facility] [place] [phone] Chasity Herndon MA 08/13/2024 Orders Only [facility] [address] [place] [address] King ChasityMARTIN Spinal stenosis, unspecified spinal region (Primary Dx) 08/13/2024 Telephone [employer] [address] [place] [address] [address] [place] [address] Magdy Eugenie 08/07/2024 1:08 PM MARINE EQUIPMENT TEST ENGINEER - 08/07/2024 11:59 PM MARINE EQUIPMENT TEST ENGINEER Hospital Encounter [facility] [address] [place] [address] Kris Velazquez MD Spinal stenosis of lumbar region with neurogenic claudication Discharge Disposition: Discharge to home or self care 08/02/2024 11:15 AM MARINE EQUIPMENT TEST ENGINEER Office Visit [facility] [address] [place] [address] Kris Velazquez MD Mixed hyperlipidemia (Primary Dx); Spinal stenosis of lumbar region with neurogenic claudication; GERD without esophagitis; Ischemic cardiomyopathy; Benign prostatic hyperplasia with post-void dribbling 07/15/2024 11:30 AM MARINE EQUIPMENT TEST ENGINEER Office Visit [facility] at [address] [address] Swapna Taylor NP Encounter for staple removal (Primary Dx) 07/06/2024 4:00 PM MARINE EQUIPMENT TEST ENGINEER Office Visit [facility] at [address] [address] Swapna Taylor NP Scalp laceration, initial encounter (Primary Dx) 06/12/2024 1:00 PM MARINE EQUIPMENT TEST ENGINEER Ancillary Procedure [employer] [address] [place] [phone] Cardiomyopathy, ischemic; Atrial fibrillation, unspecified type (HCC); ICD (implantable cardioverter-defibrill ator) in place 06/11/2024 Orders Only [employer] [address] [place] [address] [address] [place] [address] MalecEugenie Ischemic cardiomyopathy (Primary Dx); LBBB (left bundle branch block); AICD (automatic cardioverter/defibrill ator) present from Last 3 Months Immunizations Name Administration Dates Next Due Influenza, Quad, Adjuvantate d, Intramuscular 04/20/2023,05/12/2022,04/08/2021,04/17 Influenza, Quadrivalent, Lou l Culture-based MDCK, Preservative Free, Antibiotic Free, Intramuscular 05/23/2019 Influenza, Quadrivalent, Rec ombinant, Egg Free, Preservative Free, Intramuscular 04/30/2018 Influenza, Quadrivalent, Spl it, Preservative Free, Intramuscular 04/17/2020,05/01/2017,04/22/2015,04/22 Influenza, Trivalent, Adjuva nted, Intramuscular 05/15/2024 Influenza, Trivalent, IM (MDV) 4,04/11/2013,04/11/2013,04/23 Influenza, Trivalent, Preser vative Free, Intramuscular 05/14/2016,04/30/2014,04/17/2013,04/17 Influenza, Unspecified 08/20/2015,04/23/2012 Pneumococcal Conjugate Pcv20 05/12/2022 Tdap 07/06/2024 ZOSTER LIVE 05/13/2015,05/13/2015 ZOSTER Recombinant 07/31/2019,04/22/2019 Surgical History Surgery Date Site/Laterality Comments SHOULDER SURGERY Right rototar cuff and bone droop COSMETIC SURGERY bridge of nose too wide CARDIAC CATHETERIZATION VASECTOMY 1981 LUMBAR LAMINECTOMY CARDIAC PACEMAKER PLACEMENT Medical History Medical History Date Comments Hypertension Myocardial infarction (HCC) Hyperlipidemia Heart disease Coronary artery disease GERD (gastroesophageal reflux disease) Uses LifeVest defibrillator Ischemic cardiomyopathy LBBB (left bundle branch block) Family History Medical History Relation Name Comments Hypertension Father Jesus Brady Hypertension Mother Betina Brady Relation Name Status Comments Father Jesus Brady Mother Betina Brady Social History Tobacco Use Types Packs/Day Years Used Date Smoking Tobacco: Former Cigarettes 1 49.5 S tarted: 03/03/1975 Smokeless Tobacco: Never Comments:Quit smoking in Jan; Alcohol Use Standard Drinks/Week Comments Yes 0 (1 standard drink = 0.6 oz pur e alcohol) AUDIT-C Answer Date Recorded Q1: How often do you have a drink containing alcohol? 4 or more times a week 03/11/2024 Q2: How many drinks containi ng alcohol do you have on a typical day when you are drinking? 3 or 4 Q3: How often do you have si x or more drinks on one occasion? Less than monthly 03/11/2024 Personal Safety Answer Date Recorded Have you ever been in or are you currently in a harmful physical or emotional relationship or is someone making you feel afraid or unsafe? Denies 03/11/2024 Sex and Gender Information Value Date Recorded Sex Assigned at Not on file Legal Sex Male 1:12 PM MARINE EQUIPMENT TEST ENGINEER Gender Identity Male 07/21/2020 4:50 PM MARINE EQUIPMENT TEST ENGINEER Sexual Orientation Straight 07/21/2020 4: 50 PM MARINE EQUIPMENT TEST ENGINEER Obstetrics History Last Filed Vital Signs Vital Sign Reading Time Taken Comments Blood Pressure 138/78 08/02/2024 11:40 AM MARINE EQUIPMENT TEST ENGINEER Pulse 80 08/02/2024 11:40 AM MARINE EQUIPMENT TEST ENGINEER Temperature 36.4 C (97.6 F) 07/15/2024 11:33 AM MARINE EQUIPMENT TEST ENGINEER Respiratory Rate 20 07/15/2024 11:33 AM MARINE EQUIPMENT TEST ENGINEER Oxygen Saturation 98% 07/15/2024 11:33 AM MARINE EQUIPMENT TEST ENGINEER Inhaled Oxygen Concentration - - Weight 116.6 kg (257 lb) 08/02/2024 11:40 AM MARINE EQUIPMENT TEST ENGINEER Height 188 cm (6' 2 ) 08/02/2024 11:40 AM MARINE EQUIPMENT TEST ENGINEER Body Mass Index 33 08/02/2024 11:40 AM MARINE EQUIPMENT TEST ENGINEER Plan of Treatment Health Maintenance Due Date Last Done Comments Depression Screening 1955 Hepatitis C Screening 1955 Hepatitis B Screening 1972 Abdominal Aortic Aneurysm (A AA) Screen 12/07/2019 Well Visit 65+ 12/07/2019 Prostate Cancer Screening-PSA 09/13/2024 09/13/2022, 07/14/2021 Fall Risk Assessment 03/12/2025 03/12/2024 Colon Cancer Screening-Colonoscopy 07/09/2027 07/09/2017 DTaP/Tdap/Td Vaccine (2 - Td or Tdap) 07/06/2034 07/06/2024 Colon Cancer Screening-CT Colonography Discontinued 07/09/2017 Colon Cancer Screening-DNA Stool Discontinued 07/09/19 Colon Cancer Screening-FIT Discontinued 07/09/2017 Colon Cancer Screening-Sigmoidoscopy Discontinued 07/09/2017 Zoster Vaccine Completed 07/31/2019, 04/03, 05/13/2015, Additional history exists Pneumococcal vaccine 65+ Completed 05/12/2022 Covid-19 Vaccine Completed 05/15/2024, , 05/24/2022, Additional history exists Influenza Vaccine Completed 05/15/2024, , 05/12/2022, Additional history exists Medical Devices Implanted Type Area Production Broaching Machine Operator Device Identifier Shelf Expiration Date Model / Serial / Lot [employer] Synergy Xd Monorail 2.5mm 16mm 144cm Delivery System 1 Access [id number] - [id number] Implanted:Qty: 1 on 10/09/2023 by Chris Scherer MD at [facility] [employer] 06/19/2024 [id number] / / [id number] [employer] Synergy Xd Monorail 2.75mm 28mm 144cm Delivery System 1 Access [id number] - [id number] Implanted:Qty: 1 on 10/09/2023 by Chris Scherer MD at [facility] [employer] 03/15/2024 [id number] / / [id number] [employer] Lead Drt Df4 S65 Icd Promri Plexa Tachycardia Devices [id number] - [id number] - [id number] Implanted:Qty: 1 on 03/11/2024 by Yoselin Gilman MD at [facility] [employer] [id number] 03/02/2025 [id number] / [id number] / [employer] Solia S 45cm Bipolar Active Fixation Lead Pacing Steroid Eluting [id number] - [id number] - [id number] Implanted:Qty: 1 on 03/11/2024 by Yoselin Gilman MD at [facility] [employer] 12/30/2025 [id number] / [id number] / [employer] Inc Sentus Promri Otw Quadripolar Left Ventricular Lead Icd L-85/49 [id number] - [id number] - [id number] Implanted:Qty: 1 on 03/11/2024 by Yoselin Gilman MD at [facility] Ub[employer] 12/30/2025 [id number] / [id number] / AwoXronik Kiko Defibrillator Cardiac Acticor 7 Hf-T Qp 687854 - [id number] - [id number] Implanted:Qty: 1 on 03/11/2024 by Yoselin Gilman MD at [facility] [employer] 12/30/2025 [id number] / [id number] / Medtronic Kiko Tyrx Absorbable Antibacterial Envelope-Large 3.3x2.9in [id number] - [id number] Implanted:Qty: 1 on 03/11/2024 by Yoselin Gilman MD at [facility] [employer] 10/11/2024 [id number] / / [id number] Procedures Procedure Name Priority Date/Time Associated Diagnosis Comments CT LUMBAR SPINE WO CONTRAST Schedule Routine, Read Routine (OP Routine) 08/07/2024 1:19 PM MARINE EQUIPMENT TEST ENGINEER Spinal stenosis of lumbar region with neurogenic claudication POCT LIPID PANEL Routine 08/02/2024 11:4 6 AM MARINE EQUIPMENT TEST ENGINEER Mixed hyperlipidemia SUTURE REMOVAL Routine 07/15/2024 11:47 AM MARINE EQUIPMENT TEST ENGINEER Encounter for staple removal ID [id number] REPAIR SCALP/NECK/AX/NENITA T/TRUNK 2.6-7.5CM Routine 07/06/2024 4:32 PM MARINE EQUIPMENT TEST ENGINEER Scalp laceration, initial encounter DEVICE CHECK - REMOTE Routine 06/11/2024 1:48 PM MARINE EQUIPMENT TEST ENGINEER Cardiomyopathy, ischemic Atrial fibrillation, unspecified type (HCC) ICD (implantable cardioverter-defibri llator) in place PSA SCREEN Routine 09/13/2022 11:33 AM CDT Screening for prostate cancer Coronary artery disease involving [place] coronary artery of [place] heart without angina pectoris Ischemic cardiomyopathy Dyspnea on exertion COLONOSCOPY Routine 07/09/2017 from Last 3 Months or Most Recently Relevant to Health Maintenance Results * CT Lumbar Spine WO Contrast (08/07/2024 1:19 PM MARINE EQUIPMENT TEST ENGINEER) Anatomical Region Laterality Modality Spine N/A Computed Tomogra phy 08/07/2024 3:49 PM MARINE EQUIPMENT TEST ENGINEER Impressions 08/07/2024 3:49 PM MARINE EQUIPMENT TEST ENGINEER 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 Consider MRI for further evaluation. No acute abnormality. Electronically signed by: Doc Ludwig MD Narrative 08/07/2024 3:49 PM MARINE EQUIPMENT TEST ENGINEER EXAMINATION: CT of the lumbar spine without contrast HISTORY: Spinal stenosis TECHNIQUE: CT of the lumbar spine was performed according to the standard protocol without intravenous contrast. COMPARISON: None FINDINGS: 5 nonrib-bearing lumbar vertebral bodies. No acute fracture. Diffuse demineralization. Mild wedging of the T12 vertebral body and inferior endplate of L1 without visible acute fracture. L1 and L2 inferior endplate Schmorl's nodes. L3 anterior superior corner sclerosis associated with spurring. Normal alignment. Minimal dextrocurvature apex at L1. Congenital spinal canal stenosis. Superimposed circumferential disc bulges and moderate facet arthropathy/ligament flavum hypertrophy causes severe lateral recess and moderate spinal canal stenosis at L1-L2, severe spinal canal and lateral recess stenosis at L2-L3, L3-L4, L4-L5. Bilateral facet arthropathy is most advanced at L2-L3. Moderate bilateral L3-L4 and L4-L5 neural foraminal stenosis caused by short pedicles and disc bulge. Calcified aorto iliac atherosclerosis. No visible aneurysm. Vascular calcifications in the right renal hilum. No paraspinal muscular atrophy. Mild bilateral sacroiliac osteoarthritis with trace vacuum effect. Procedure Note Doc Ludwig MD PhD - 08/07/2024 EXAMINATION: CT of the lumbar spine without contrast HISTORY: Spinal stenosis TECHNIQUE: CT of the lumbar spine was performed according to the standard protocol without intravenous contrast. COMPARISON: None FINDINGS: 5 nonrib-bearing lumbar vertebral bodies. No acute fracture. Diffuse demineralization. Mild wedging of the T12 vertebral body and inferior endplate of L1 without visible acute fracture. L1 and L2 inferior endplate Schmorl's nodes. L3 anterior superior corner sclerosis associated with spurring. Normal alignment. Minimal dextrocurvature apex at L1. Congenital spinal canal stenosis. Superimposed circumferential disc bulges and moderate facet arthropathy/ligament flavum hypertrophy causes severe lateral recess and moderate spinal canal stenosis at L1-L2, severe spinal canal and lateral recess stenosis at L2-L3, L3-L4, L4-L5. Bilateral facet arthropathy is most advanced at L2-L3. Moderate bilateral L3-L4 and L4-L5 neural foraminal stenosis caused by short pedicles and disc bulge. Calcified aorto iliac atherosclerosis. No visible aneurysm. Vascular calcifications in the right renal hilum. No paraspinal muscular atrophy. Mild bilateral sacroiliac osteoarthritis with trace vacuum effect. 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 Consider MRI for further evaluation. No acute abnormality. Electronically signed by: Doc Ludwig MD us Kris Velazquez MD IMG CT PROCEDURES Final Resul t * POCT lipid panel (08/02/2024 11:46 AM MARINE EQUIPMENT TEST ENGINEER) Cholesterol, POC 121 mg/dL HDL, POC 41 mg/dL Triglycerides, POC 59 mg/dL LDL Cholesterol POC 68 mg/dL Non-HDL Cholesterol, POC 80 mg/dL Cholesterol Total, POC 121 mg/dL Capillary blood 08/02/2024 1 1:46 AM MARINE EQUIPMENT TEST ENGINEER us Kris Velazquez MD POINT OF CARE TEST ORDERABLES Final Result * Suture Removal (07/15/2024 11:47 AM MARINE EQUIPMENT TEST ENGINEER) Narrative Swapna Taylor NP - 07/15/2024 11:47 AM MARINE EQUIPMENT TEST ENGINEER Swapna Taylor NP 07/15/2024 11:48 AM Suture Removal Date/Time: 07/15/2024 11:47 AM Performed by: Swapna Taylor NP Authorized by: Swapna Taylor NP To generate suggested charges, all areas highlighted in orange must be documented. If there are no orange regions, a default charge will not be suggested. The procedure documentation in the form should sufficiently describe the procedure performed. Lab orders must be placed in the Orders section of the visit taskbar.: RN Notified of Procedure: yes Informed consent: Risks, benefits, alternatives discussed Patient's stated name/ matches armband: Yes Consent form signed, dated, timed; matches correct patient, intended procedure and site: Yes Anesthesia: Local anesthesia used?: No Location: Body area: Head/neck Location details: Scalp Location details: Scalp Location details: Scalp Location details: Scalp Location details: Scalp Procedure details: Wound appearance: Clean and pink Jet removed: Yes Jet removed: 3 Suture and/or jet initally placed by: Me or my group Post-removal: Antibiotic ointment applied us Swapna Taylor STOCK SORTER IN CLINIC/BEDSIDE ORDERABL ES Final Result * ID SMPL REPAIR SCALP/NECK/AX/GENIT/TRUNK 2.6-7.5CM (07/06/2024 4:32 PM MARINE EQUIPMENT TEST ENGINEER) Narrative Swapna Taylor NP - 07/06/2024 4:32 PM MARINE EQUIPMENT TEST ENGINEER Swapna Taylor NP 07/06/2024 4:35 PM Laceration Repair Date/Time: 07/06/2024 4:32 PM Performed by: Swapna Taylor NP Authorized by: Swapna Taylor NP Consent: Consent obtained: Verbal Consent given by: Patient Risks discussed: Infection and pain Alternatives discussed: Steri-Strips, however too much bleeding to apply Steri-Strips. Anesthesia: Anesthesia method: Local infiltration Local anesthetic: Lidocaine 1% WITH epi Laceration details: Location: Scalp Scalp location: R parietal Length (cm): 4 Pre-procedure details: Preparation: Patient was prepped and draped in usual sterile fashion Exploration: Wound exploration: wound explored through full range of motion Contaminated: no Treatment: Area cleansed with: Chlorhexidine and saline Amount of cleaning: Standard Visualized foreign bodies/material removed: no Debridement: None Undermining: None Scar revision: no Skin repair: Repair method: [place] Number of jet: 3 Approximation: Approximation: Close Repair type: Repair type: Simple Post-procedure details: Dressing: Antibiotic ointment Procedure completion: Tolerated us Swapna Taylor STOCK SORTER IN CLINIC/BEDSIDE ORDERABL ES Final Result * DEVICE CHECK - REMOTE (06/11/2024 1:48 PM MARINE EQUIPMENT TEST ENGINEER) Anatomical Region Laterality Modality Other Narrative 06/19/2024 11:31 AM MARINE EQUIPMENT TEST ENGINEER Images from the original result were not included. 06/12/2024 Biotronik quarterly remote check The complete report is attached and is also available in Visit Navigator under Pediatric Geneticist Slow nsT alert: BiV ICD implanted March 2024 Battery Status:BARI Ap: 0% RVp: 30% BiV: 30% PATIENT PARTNER: 100% Next Appointment: 03/14/2025 No anomalies noted on remote Reviewed By Lyudmila Austin RN BSN ATTESTATION I have reviewed the device interrogation report associated with this encounter in detail. I agree with the documentation recorded/scanned into the electronic medical record. Recommendations: Continue current device follow-up. Ysoelin Gilman MD Yoselin Gilman MD [facility] CARDIAC SERVICES ID OCEDURES Final Result * PSA screen (09/13/2022 11:33 AM CDT) PSA 1.8 0.0 - 4.0 ng/mL [facility] - Comment: Chuck ECLIA methodology. According to the [place] [employer], Serum PSA should decrease and remain at undetectable levels after radical prostatectomy. The AUA defines biochemical recurrence as an initial PSA value 0.2 ng/mL or greater followed by a subsequent confirmatory PSA value 0.2 ng/mL or greater. Values obtained with different assay methods or kits cannot be used interchangeably. Results cannot be interpreted as absolute evidence of the presence or absence of malignant disease. Blood 09/13/2022 11:3 3 AM CDT 09/13/2022 Narrative [facility] - 09/14/2022 8:17 AM CDT Performed at: 01 - [address] [id number] [employer]: Dick Domingo PhD, Phone: [phone] us Kris Velazquez MD LAB BLOOD ORDERABLES Final Re sult [facility] - 01 * Colonoscopy (07/09/2017) Anatomical Region Laterality Modality Other Narrative 07/09/2017 Pt reported he had 2020 repeat in 3 years us Historical Provider ENDOSCOPY PROCEDURES Lacy l Result from Last 3 Months or Most Recently Relevant to Health Maintenance Insurance MEDICARE SOLUTIONS [employer] MEDICARE SOLUTIONS [place] [employer] MEDICARE SOLUTIONS Advance Directives For more information, please contact: [phone] * Full Code (Latest Code Status on File) Date Activated Date Inactivated Comments 10/09/2023 2:15 PM 10/10/2023 4:30 PM Care Teams Airport Maintenance Laborer Relationship Specialty Start Date End Date Kris Velazquez MD [address] [address] PCP - General Internal Medicine 09/28/18
--- OUTSIDE RECORDS SUMMARY | 2024-08-17 14:21 | XMS_ITS | Encounter Summary ---
Author Organization [facility] Address [address] [facility] Attn: Epic Prelude ADT EDI ROACH [address] Care Team Providers Care Textile Screen Maker Name Role Phone Kris Velazquez MD Primary Care Provider [phone] Encounter Details Date Type Department Care Team (Late st Contact Info) Description 08/24/1990 Outpatient Historical David Chapman MD NO ADDRESS ON FILE Social History Tobacco Use Types Packs/Day Years Used Date Smoking Tobacco: Never Assessed Sex and Gender Information Value Date Recorded Sex Assigned at Not on file Legal Sex Male 3:56 AM AIR TESTER Gender Identity Not on file Sexual Orientation Not on file documented as of this encounter Plan of Treatment Not on file documented as of this encounter Visit Diagnoses Not on filedocumented in this encounter Care Teams Textile Screen Maker Relationship Specialty Start Date End Date Kris Velazquez MD PCP - General Internal Medicine 01/07/16 documented as of this encounter
--- OUTSIDE RECORDS SUMMARY | 2024-08-17 14:21 | XMS_ITS | Referral Summary ---
Author Organization [facility] Address [address] [place] [address] Care Team Providers Care Safe Deposit Clerk Name Role Phone Kris Velazquez MD Primary Care Provider [phone] Encounters Date Type Department Care Team Description 08/16/2024 Telephone [facility] Scheduling [address] [place] [address] Linda David 08/13/2024 Telephone [facility] [address] [place] [phone] [place], [place] 08/13/2024 Orders Only [facility] [address] [place] [phone] [place], [place] Spinal stenosis, unspecified spinal region (Primary Dx) 08/13/2024 Telephone [place] [employer] [address] [place] [phone] Eugenie Parham 08/07/2024 1:08 PM DEVELOPMENT GEOLOGIST - 08/07/2024 11:59 PM DEVELOPMENT GEOLOGIST Hospital Encounter [facility] [address] [place] [phone] Kris Velazquez MD Spinal stenosis of lumbar region with neurogenic claudication Discharge Disposition: Discharge to home or self care 08/02/2024 11:15 AM DEVELOPMENT GEOLOGIST Office Visit [facility] [address] [place], [place] [address] [place] [address] Kris Velazquez MD Mixed hyperlipidemia (Primary Dx); Spinal stenosis of lumbar region with neurogenic claudication; GERD without esophagitis; Ischemic cardiomyopathy; Benign prostatic hyperplasia with post-void dribbling 07/15/2024 11:30 AM DEVELOPMENT GEOLOGIST Office Visit [facility] at [address] [phone] Swapna Taylor NP Encounter for staple removal (Primary Dx) 07/06/2024 4:00 PM DEVELOPMENT GEOLOGIST Office Visit [facility] at [address] [phone] Swapna Taylor NP Scalp laceration, initial encounter (Primary Dx) 06/12/2024 1:00 PM DEVELOPMENT GEOLOGIST Ancillary Procedure [place] [employer] [id number] [facility] [address] [place] [address] Cardiomyopathy, ischemic; Atrial fibrillation, unspecified type (HCC); ICD (implantable cardioverter-defibrill ator) in place 06/11/2024 Orders Only [place] [employer] [address] [facility] [address] [place] [address] Malec, Eugenie Ischemic cardiomyopathy (Primary Dx); LBBB (left bundle branch block); AICD (automatic cardioverter/defibrill ator) present from Last 3 Months Allergies Active Allergy Reactions Criticality Noted Date [...] 08/02/2024 Assessment & Plan (08/02/2024 12:13 PM DEVELOPMENT GEOLOGIST): To consider surgical procedure with Urology. S/P ICD (internal cardiac defibrillator) procedu re 03/11/2024 Ischemic cardiomyopathy 03/01/2024 Assessment & Plan (08/02/2024 12:13 PM DEVELOPMENT GEOLOGIST): Doing much better with biventricular ICD. Resynchronization therapy seems to have helped. No signs or symptoms of CHF LBBB (left bundle branch block) 03/01/2024 CAD (coronary artery disease) 10/09/2023 Assessment & Plan (01/22/2024 12:33 PM CDT): Discussed meds for cardiomyopathy. Coronary artery disease invo lving crow coronary artery of crow heart without angina pectoris 08/04/2023 Assessment & Plan (08/04/2023 11:25 AM DEVELOPMENT GEOLOGIST): Asymptomatic at present. Unfortunately continues to smoke. Is on beta-blockers, aspirin, clopidogrel, and atorvastatin high dose. Also now on Entresto, Jardiance and spironolactone for cardiomyopathy. Recent echo to be reviewed by Cardiology; certainly the area in the mitral valve may be of concern. I have asked the patient to discuss a possible cardiac MRI if the rubber compounder formulator feels that this may be significant. Mixed hyperlipidemia 08/04/2023 Assessment & Plan (01/22/2024 12:33 PM CDT): Doing well continue high-dose statin Assessment & Plan (08/04/2023 11:25 AM DEVELOPMENT GEOLOGIST): Continue statin. Cigarette nicotine dependence without complicati on 08/04/2023 Assessment & Plan (01/22/2024 12:32 PM CDT): To quit smoking soon Assessment & Plan (08/04/2023 11:26 AM DEVELOPMENT GEOLOGIST): Of course encouraged to quit smoking. Will [...] 08/07/2012 Assessment & Plan (08/02/2024 12:15 PM DEVELOPMENT GEOLOGIST): Check CT spine Non-ST elevation (NSTEMI) myocardial infarction ([facility]/HCC) 05/17/2012 Tobacco use disorder, continuous 05/17/2012 Screening for prostate cancer Immunizations Name Administration Dates Next Due Influenza, [...] 07/06/2024 ZOSTER LIVE 05/13/2015,05/13/2015 ZOSTER Recombinant 07/31/2019,04/22/2019 Social History Tobacco Use Types Packs/Day Years [...] on file Legal Sex Male 1:12 PM DEVELOPMENT GEOLOGIST Gender Identity Male 07/21/2020 4:50 PM DEVELOPMENT GEOLOGIST Sexual Orientation Straight 07/21/2020 4: 50 PM DEVELOPMENT GEOLOGIST Last Filed Vital Signs Vital Sign Reading Time Taken Comments Blood Pressure 138/78 08/02/2024 11:40 AM DEVELOPMENT GEOLOGIST Pulse 80 08/02/2024 11:40 AM DEVELOPMENT GEOLOGIST Temperature 36.4 C (97.6 F) 07/15/2024 11:33 AM DEVELOPMENT GEOLOGIST Respiratory Rate 20 07/15/2024 11:33 AM DEVELOPMENT GEOLOGIST Oxygen Saturation 98% 07/15/2024 11:33 AM DEVELOPMENT GEOLOGIST Inhaled Oxygen Concentration - - Weight 116.6 kg (257 lb) 08/02/2024 11:40 AM DEVELOPMENT GEOLOGIST Height 188 cm (6' 2 ) 08/02/2024 11:40 AM DEVELOPMENT GEOLOGIST Body Mass Index 33 08/02/2024 11:40 AM DEVELOPMENT GEOLOGIST Plan of Treatment Not on file Medical Devices Implanted Type Area Sharepoint Web Developer Device Identifier Shelf Expiration Date Model / Serial / Lot Protom [employer] Synergy Xd Monorail 2.5mm 16mm 144cm Delivery System 1 Access [id number] - [id number] Implanted:Qty: 1 on 10/09/2023 by Chris Scherer MD at [facility] [employer] 06/19/2024 [id number] / / [id number] Planex Scientific Fjuul Synergy Xd Monorail 2.75mm 28mm 144cm Delivery System 1 Access [id number] - [id number] Implanted:Qty: 1 on 10/09/2023 by Chris Scherer MD at [facility] [employer], Inc Sahil 03/15/2024 [id number] / / [id number] Biotronik Inc Lead Drt Df4 S65 Icd Promri Plexa Tachycardia Devices [id number] - [id number] - [id number] Implanted:Qty: 1 on 03/11/2024 by Yoselin Gilman MD at [facility] [employer]ot[employer] Inc [id number] 03/02/2025 [id number] / [id number] / Biotronik [email or web address] Solia S 45cm Bipolar Active Fixation Lead Pacing Steroid Eluting 108958 - [id number] - [id number] Implanted:Qty: 1 on 03/11/2024 by Yoselin Gilman MD at [facility] Planex 12/30/2025 [id number] / [id number] / GetYourGuideronik [email or web address] Sentus Promri Otw Quadripolar Left Ventricular Lead Icd L-85/49 274520 - [id number] - [id number] Implanted:Qty: 1 on 03/11/2024 by Yoselin Gilman MD at [facility] [employer]ThatProject [facility] 12/30/2025 [id number] / [id number] / GetYourGuideroniLiveOffice Defibrillator Cardiac Acticor 7 Hf-T Qp 395657 - [id number] - [id number] Implanted:Qty: 1 on 03/11/2024 by Yoselin Gilman MD at [facility] Planex 12/30/2025 [id number] / [id number] / Medtronic [email or web address] Tyrx Absorbable Antibacterial Envelope-Large 3.3x2.9in [id number] - [id number] Implanted:Qty: 1 on 03/11/2024 by Yoselin Gilman MD at [facility] [employer]an[employer] 10/11/2024 [id number] / / [id number] Procedures Procedure Name Priority Date/Time Associated Diagnosis Comments CT LUMBAR SPINE WO CONTRAST Schedule Routine, Read Routine (OP Routine) 08/07/2024 1:19 PM DEVELOPMENT GEOLOGIST Spinal stenosis of lumbar region with neurogenic claudication POCT LIPID PANEL Routine 08/02/2024 11:4 6 AM DEVELOPMENT GEOLOGIST Mixed hyperlipidemia SUTURE REMOVAL Routine 07/15/2024 11:47 AM DEVELOPMENT GEOLOGIST Encounter for staple removal CT SMPL REPAIR SCALP/NECK/AX/NENITA T/TRUNK 2.6-7.5CM Routine 07/06/2024 4:32 PM DEVELOPMENT GEOLOGIST Scalp laceration, initial encounter DEVICE CHECK - REMOTE Routine 06/11/2024 1:48 PM DEVELOPMENT GEOLOGIST Cardiomyopathy, ischemic Atrial fibrillation, unspecified type (HCC) ICD (implantable cardioverter-defibri llator) in place PSA SCREEN Routine 09/13/2022 11:33 AM CDT Screening for prostate cancer Coronary artery disease involving crow coronary artery of crow heart without angina pectoris Ischemic cardiomyopathy Dyspnea on exertion COLONOSCOPY Routine 07/09/2017 from Last 3 Months or Most Recently Relevant to Health Maintenance Results * CT Lumbar Spine WO Contrast (08/07/2024 1:19 PM DEVELOPMENT GEOLOGIST) Anatomical Region Laterality Modality Spine N/A Computed Tomogra phy 08/07/2024 3:49 PM DEVELOPMENT GEOLOGIST Impressions 08/07/2024 3:49 PM DEVELOPMENT GEOLOGIST 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 Consider MRI for further evaluation. No acute abnormality. Electronically signed by: MD Tanna Pennington 08/07/2024 3:49 PM DEVELOPMENT GEOLOGIST EXAMINATION: CT of the lumbar spine without [...] * POCT lipid panel (08/02/2024 11:46 AM DEVELOPMENT GEOLOGIST) Cholesterol, POC 121 mg/dL HDL, POC 41 mg/dL Triglycerides, POC 59 mg/dL LDL Cholesterol POC 68 mg/dL Non-HDL Cholesterol, POC 80 mg/dL Cholesterol Total, POC 121 mg/dL Capillary blood 08/02/2024 1 1:46 AM DEVELOPMENT GEOLOGIST us Kris Velazquez MD POINT OF CARE TEST ORDERABLES Final Result * Suture Removal (07/15/2024 11:47 AM DEVELOPMENT GEOLOGIST) Narrative Swapna Taylor, K 12 SCHOOL PRINCIPAL - 07/15/2024 11:47 AM DEVELOPMENT GEOLOGIST Swapna Taylor NP 07/15/2024 11:48 AM Suture [...] Procedure details: Wound appearance: Clean and pink Vera removed: Yes [place] removed: 3 Suture and/or vera initally placed by: Me or my group Post-removal: Antibiotic ointment applied Swapna Taylor NP IN CLINIC/BEDSIDE ORDERABL ES Final Result * CT SMPL REPAIR SCALP/NECK/AX/GENIT/TRUNK 2.6-7.5CM (07/06/2024 4:32 PM DEVELOPMENT GEOLOGIST) Narrative Swapna Taylor NP - 07/06/2024 4:32 PM DEVELOPMENT GEOLOGIST Swapna Taylor NP 07/06/2024 4:35 PM Laceration [...] Scar revision: no Skin repair: Repair method: [place] Number of vera: 3 Approximation: Approximation: Close Repair type: Repair type: Simple Post-procedure details: Dressing: Antibiotic ointment Procedure completion: Tolerated us Swapna Taylor K 12 SCHOOL PRINCIPAL IN CLINIC/BEDSIDE ORDERABL ES Final Result * DEVICE CHECK - REMOTE (06/11/2024 1:48 PM DEVELOPMENT GEOLOGIST) Anatomical Region Laterality Modality Other Narrative 06/19/2024 11:31 AM DEVELOPMENT GEOLOGIST Images from the original result were not included. 06/12/2024 [employer] quarterly remote check The complete report is attached and is also available in Visit Navigator under Logistics Operations Manager Slow nsT alert: BiV ICD implanted March 2024 Battery Status:BARI Ap: 0% RVp: 30% BiV: 30% TECHNICAL DOCUMENT WRITER: 100% Next Appointment: 03/14/2025 No anomalies noted on remote Reviewed By Lyudmila Austin RN BSN ATTESTATION I have reviewed the device interrogation report associated with this encounter in detail. I agree with the documentation recorded/scanned into the electronic medical record. Recommendations: Continue current device follow-up. Yoselin Gilman MD us Yoselin Gilman MD CV CARDIAC SERVICES CT OCEDURES Final Result * PSA screen (09/13/2022 11:33 AM CDT) PSA 1.8 0.0 - 4.0 ng/mL [facility] - 01 Comment: Chuck ECLIA methodology. According to the [place] [employer], Serum PSA should decrease and [...] - 09/14/2022 8:17 AM CDT Performed at: [facility] [id number] Special Warfare Operator: Dick Domingo PhD, Phone: [phone] us Kris Velazquez MD LAB BLOOD ORDERABLES Final Re sult [facility] - 01 * Colonoscopy (07/09/2017) Anatomical Region Laterality Modality Other Narrative 07/09/2017 Pt reported he had 2020 repeat in 3 years Historical Provider ENDOSCOPY PROCEDURES Lacy l Result from Last 3 Months or Most Recently Relevant to Health Maintenance [place] [address] MEDICARE SOLUTIONS [employer] FOR LIFE MEDICARE SOLUTIONS FOR LIFE MEDICARE SOLUTIONS Advance Directives For more information, please contact: [phone] * Full Code (Latest Code Status on File) Date Activated Date Inactivated Comments 10/09/2023 2:15 PM 10/10/2023 4:30 PM Care Teams Safe Deposit Clerk Relationship Specialty Start Date End Date Kris Velazquez MD [address] [address] PCP - General Internal Medicine 09/28/18
--- OUTSIDE RECORDS SUMMARY | 2024-08-17 14:21 | XMS_ITS | Clinical Summary ---
Author Organization [facility] Address [address] [place] [address] Phone Care Team Providers Care Farmworker Livestock Name Role Phone Kris Velazquez MD Primary Care Provider [phone] Allergies No known active allergies Medications metoprolol tartrate (LOPRESSOR) 25 mg tablet Take 25 mg by mouth 2 times daily. Active atorvastatin (LIPITOR) 10 mg tablet Take 10 mg by mouth Daily LATE. Active VIT C/VIT E/LUTEIN/MIN/OME GA-3 (OCUVITE ORAL) Take by mouth. Active UBIDECARENONE (CO Q-10 ORAL) Take by mouth. Active aspirin (ECOTRIN EC) 81 mg Tablet, Delayed Release (E.C.) Take 81 mg by mouth daily. Active MILK THISTLE ORAL Take by mouth. Active Active Problems No known active problems Family History Medical History Relation Name Comments Colon Cancer Neg Hx Social History Tobacco Use Types Packs/Day Years Used Date Smoking Tobacco: Every Day Cigarettes Smokeless Tobacco: Never Alcohol Use Standard Drinks/Week Comments Yes 1 (1 standard drink = 0.6 oz pur e alcohol) Sex and Gender Information Value Date Recorded Sex Assigned at Not on file Legal Sex Male 3:56 AM SENIOR SOFTWARE ENGINEER Gender Identity Not on file Sexual Orientation Not on file Last Filed Vital Signs Vital Sign Reading Time Taken Comments Blood Pressure 128/97 02/25/2019 8:38 AM CDT Pulse 59 02/25/2019 8:38 AM CDT Temperature 36.7 C (98 F) 02/25/2019 8:23 AM CDT Respiratory Rate 18 02/25/2019 8:38 AM CDT Oxygen Saturation 100% 02/25/2019 8:38 AM CDT Inhaled Oxygen Concentration - - Weight 112 kg (247 lb) 02/25/2019 7:13 AM CDT Height 188 cm (6' 2 ) 02/25/2019 7:13 AM CDT Body Mass Index 31.71 02/25/2019 7:13 AM CDT Plan of Treatment Health Maintenance Due Date Last Done Comments DTAP/TDAP/TD VACCINES (1 - Tdap) 1973 PNEUMOCOCCAL VACCINE 65+ YEA RS (1 of 2 - PCV) 1973 FIT-DNA Q 3 years 12/07/1999 FIT/FOBT Q 1 year 12/07/1999 Flex Sig/CT Colonography Q 5 years 12/07/1999 ZOSTER VACCINE (1 of 2) 2004 COLORECTAL SCREENING 02/25/2022 02/25/2019, 02/25/2019, 02/25/2019, Additional history exists Colorectal Cancer Screening 02/25/2022 INFLUENZA VACCINE (#1) 2024 7, 04/22/2015, 04/30/2014, Additional history exists RSV VACCINE (60+ or ) (1 - 1-dose 75+ series) 2029 Procedures Procedure Name Priority Date/Time Associated Diagnosis Comments COLONOSCOPY REPORT 02/25/2019 8: 21 AM CDT from Last 3 Months or Most Recently Relevant to Health Maintenance Results * COLONOSCOPY REPORT (02/25/2019 8:21 AM CDT) Narrative Procedure Note David Reed MD - 02/25/2019 8:20 AM CDT [facility] Endoscopy Patient Name: Mina Brady Procedure Date: 02/25/2019 Date of : 1955 Admit Type: Outpatient Attending MD: David Reed MD Procedure: Colonoscopy Indications: Surveillance: Personal history of adenomatous polyps on last colonoscopy 3 years ago Providers: David Reed MD Referring MD: Kris Velazquez MD Medicines: Propofol per Anesthesia Complications: No immediate complications. Procedure: Informed consent was obtained for the procedure, including moderate sedation after risks were discussed. Based on the pre-procedure assessment, including review of the patient's medical history, medications, allergies, and review of systems, the patient was deemed to be an appropriate candidate for sedation. A timeout was performed. Continuous ECG monitoring, pulse oximetry, blood pressure monitoring, and direct observation were performed. The Colonoscope was introduced through the anus and advanced to the terminal ileum, with identification of the appendiceal orifice and IC valve. The colonoscopy was performed without difficulty. The patient tolerated the procedure well. The quality of the bowel preparation was good. At completion of the exam, the scope was advanced to the cecum and all residual air was removed. Estimated Blood Loss: Estimated blood loss: none. Findings: Five sessile polyps were found from the cecum to the descending colon. The polyps were 2 to 8 mm in size. These polyps were removed with a cold snare. Resection and retrieval were complete. 4/5 were retrieved. Internal hemorrhoids were found during retroflexion. The hemorrhoids were moderate. There was 1 anal epidermal polyp approximately 1 cm in size. It looked like a hypertrophied anal papilla. It was not removed. Impression: - 5 small colon polyps. Resected and retrieved. - Internal hemorrhoids with an epidermal polyp. Recommendation: - Await pathology results. David Reed MD 02/25/2019 8:20:18 AM This report has been signed electronically. Number of Addenda: [address]; [place] [address] David Reed MD GI PROCEDURE ORDERABLES Final Re sult from Last 3 Months or Most Recently Relevant to Health Maintenance Insurance [facility] [address] [facility] [place] Advance Directives For more information, please contact: [phone] * Full Code (Latest Code Status on File) Date Activated Date Inactivated Comments 02/25/2019 7:16 AM 02/25/2019 10:48 AM * Full Code Date Activated Date Inactivated Comments 02/25/2016 6:43 AM 02/25/2016 9:55 AM Care Teams Farmworker Livestock Relationship Specialty Start Date End Date Kris Velazquez MD PCP - General Internal Medicine 01/07/16
--- OUTSIDE RECORDS SUMMARY | 2024-08-17 14:22 | XMS_ITS | Encounter Summary ---
Author Organization [facility] Address [address] [place] [address] Phone Care Team Providers Care Naval Gunfire Spotter Name Role Phone Kris Velazquez MD Primary Care Provider [phone] Encounter Details Date Type Department Care Team (Late st Contact Info) Description 08/16/2024 Telephone [facility] Scheduling [address] [place] [address] Linda David Social History Tobacco Use Types Packs/Day Years [...] on file Legal Sex Male 1:12 PM AEROSPACE PHYSIOLOGICAL TECHNICIAN Gender Identity Male 07/21/2020 4:50 PM AEROSPACE PHYSIOLOGICAL TECHNICIAN Sexual Orientation Straight 07/21/2020 4: 50 PM AEROSPACE PHYSIOLOGICAL TECHNICIAN documented as of this encounter Miscellaneous Notes * Telephone Encounter - Lilly Lucero - 08/16/2024 2:50 PM CST PT Rang to get address SPACE PHYSIOLOGICAL TECHNICIAN * Telephone Encounter - Suzan Dockery - 08/16/2024 2:31 PM CST Department of Neurological Surgery at [facility] Spine Intake 08/16/24 Mina Brady 1955 [id number] Kris Velazquez MD Are you a New or Returning Pt? new Referring physician PCP Referred to: First Available: Second Opinion: No Insurance: Medicare: Name of Plan uhc medicare Send Letter to PCP for Insurance Auth: No Litigation: the act, process, or practice of settling a dispute in a court of law. Active litigation pertaining to this disease process? No Has the patient had spinal surgery within the last year? No If direct referral and surgery is 6 months post op - please send to provider pool for review: Diagnosis: Spinal Stenosis Location (Spinal Area): Lumbar Imaging Done within Last Year: Yes List ALL CT: Month 2024 Imaging Location: [facility] FAX Records Requested: In [facility] HT: 6'2 WT: 250 pounds BMI: 32.1 Weakness: No Numbness: Yes Spinal Pain: Radiating Pain, Dull pain, lower back, and both leg(s) Loss of bowel or bladder control: No Duration of symptoms: Spine surgery - within last 10 years: No Physical therapy within last year No Pain Management (Injections) within last year No Are you a current smoker on nicotine: Yes Reason for visit: New Pt Appt Date: 09/10/2024 Time: 10:00am Location: [facility] ([facility]) Provider ARAVIND - Rigoberto Parks Routed: Directly to HELPDESK ANALYST Remind pt to arrive 45 min early for xrays: Yes Patient Informed about possible wait time to be seen by Providers: Yes ???Please expect your total visit time to be approximately 2-4 hours for a new patient visit or surgical consultation. This time will involve x-ray imaging, processing, interpretation, evaluation by Providers team, and consultation with Doctor. Please expect that during this time you may be waitingin between x-rays, evaluation by Provider's team, and consultation with Doctor. This wait time is necessary for a thorough review, analysis, and interpretation of your clinical history, radiological studies, current condition, and formulation of a clinical plan. We ask for your patience and know that while you are waiting, your care is being actively planned?? SPACE PHYSIOLOGICAL TECHNICIAN * Telephone Encounter - Suzan Dockery - 08/16/2024 9:02 AM CST 1st attempt - no answer, LVM Dx: Spinal stenosis SPACE PHYSIOLOGICAL TECHNICIAN documented in this encounter Plan of Treatment Not on file documented as of this encounter Visit Diagnoses Not on filedocumented in this encounter Care Teams Naval Gunfire Spotter Relationship Specialty Start Date End Date Kris Velazquez MD [address] [address] PCP - General Internal Medicine 09/28/18 documented as of this encounter
--- OUTSIDE RECORDS SUMMARY | 2024-08-17 14:22 | XMS_ITS | Clinical Summary ---
Author Organization [facility] Address [address] [place] [address] Care Team Providers Care Advertising Consultant Name Role Phone Kris Velazquez MD Primary Care Provider [phone] Source Comments [facility],non-owned Affiliates and Associated Physician Practices is amultiple site organization consisting of ambulatory clinics and hospital sitesin [place], [place], [place] and [place]. This disclosure is being madepursuant to the Care Everywhere program and may not contain all information available regarding this patient. Last updated 18.[facility] Allergies No known active allergies Medications * Be aware that medications may not be up to date on this document. Alwaysverify current medications with the patient. Medication Sig Dispensed Refills Start Date End Date Status aspirin 81 MG chew tablet Take 81 mg by mouth once daily. Active multivitamin daily (THERAGRAN) tablet Take 1 Tab by mouth daily with food. Active prasugrel (EFFIENT) 10 MG tablet Take 1 Tab by mouth once daily. 30 Tab 3 04/23/2012 Active carvedilol (COREG) 3.125 MG tablet Take 1 Tab by mouth 2 times daily with breakfast and dinner. 60 Tab 3 04/23/2012 Active Immunizations Name Administration Dates Next Due INFLUENZA VACCINE 04/23/2012 INFLUENZA VACCINE, QUADR. (F LUZONE; FLULAVAL; FLUARIX; AFLURIA QUADRIVALENT; 6MO+), 0.5 ML (IIV4) 05/01/2017 iNFLUENZA VACCINE, RECOM-BENITES, QUADR. (FLUBLOCK QUADRIVALENT; 18Y+) (RIV4) 04/30/2018 Social History Tobacco Use Types Packs/Day Years Used Date Smoking Tobacco: Every Day Cigarettes Tobacco Cessation:Ready to Q uit: No; Counseling Given: Yes Alcohol Use Standard Drinks/Week Comments Not Asked 0 (1 standard drink = 0.6 oz pur e alcohol) Sex and Gender Information Value Date Recorded Sex Assigned at Not on file Gender Identity Not on file Sexual Orientation Not on file Last Filed Vital Signs Vital Sign Reading Time Taken Comments Blood Pressure 116/83 04/23/2012 11:33 AM CDT Pulse 77 04/23/2012 11:33 AM CDT Temperature 36.7 C (98 F) 04/23/2012 11:33 AM CDT Respiratory Rate 18 04/23/2012 11:33 AM CDT Oxygen Saturation 96% 04/23/2012 11:33 AM CDT Inhaled Oxygen Concentration - - Weight 108 kg (238 lb) 04/22/2012 10:40 AM CDT Height - - Body Mass Index - - Plan of Treatment Health Maintenance Due Date Last Done Comments COLOGUARD (AGES 45-75) - COL ON CA SCREENING 1954 COLON MONITORING 1954 COLONOSCOPY - COLON CA SCREENING 1954 CT COLONOGRAPHY - COLON CA SCREENING 1954 Colorectal Cancer Screening 1954 FIT - COLON CA SCREENING 1954 FLEX SIG - COLON CA SCREENING 1954 HEPATITIS C SCREENING 12/01/1972 DTAP/TDAP/TD VACCINES (1 - Tdap) 1973 PNEUMOCOCCAL VACCINE 50+ (1 of 2 - PCV) 1973 ZOSTER VACCINE (1 of 2) 2004 LIPID TESTING 04/23/2017 04/23/2012 AAA SCREENING 12/07/2019 COVID-19 VACCINE ( - 2023-2 5 season) 2024 INFLUENZA VACCINE (#1) 2024 8, 05/01/2017, 04/23/2012 DEPRESSION SCREENING 07/03/2024 Respiratory Syncytial Virus (RSV) Vaccine Pt: or over 60 yrs (1 - 1-dose 75+ series) 2029 HEPATITIS B VACCINE Aged Out No longe r eligible based on patient's age to complete this topic HIB VACCINE Aged Out No longer eligi ble based on patient's age to complete this topic HPV VACCINE Aged Out No longer eligi ble based on patient's age to complete this topic MENINGOCOCCAL (Group B) VACCINE Aged Out No longer eligible b ased on patient's age to complete this topic MENINGOCOCCAL VACCINE Aged Out No janelle selene eligible based on patient's age to complete this topic Procedures Procedure Name Priority Date/Time Associated Diagnosis Comments LIPID PROFILE Routine 04/23/2012 5:41 AM CDT from Last 3 Months or Most Recently Relevant to Health Maintenance Results * LIPID PROFILE (04/23/2012 5:41 AM CDT) Cholesterol 146 <200 mg/dL [facility] Triglycerides 81 10 - 210 mg/dL [facility] HDL Cholesterol 49 >40 mg/dL [facility] LDL Calculated 81 mg/dL [facility] Chol HDL Ratio 2.98 [facility] Comment Lipid [facility] Comment: Risk Classification HDL CHOL LDL CHOL TOTAL CHOL According to NCEP (mg/dl) (mg/dL) (mg/dl) Desirable >40 <130 < 200 Borderline/High - 130-159 200-239 High - >159 > 239 The total cholesterol to HDL cholesterol ratio may be used to predict risk for coronary heart disease in untreated patients according to data reported from the [place] Study by Gregory Sanchez M.D. The predictive value in patients over 60 years of age is uncertain. Risk TOTAL CHOL/HDL RATIO MEN WOMEN 1/2 Average 3.43 3.27 Average 4.97 4.44 2X Average 9.55 7.05 3X Average 23.39 11.04 In Coronary Artery Disease patients, in whom nonpharmacological therapy has failed, the AHA recommends that drug therapy should be prescribed to lower LDL cholesterol to <100mg/dL. Drug therapy may be instituted in patients with HDL <35mg/dL. The reported LDL is a calculated result. For a more precise measurement, a direct LDL test is available, as necessary. Blood specimen (specimen) BLOOD SPECIMEN / Unknown 04/23/2012 5:41 AM CDT 04/23/2012 5:47 AM CDT Daniel Smith MD LAB - CHEMISTRY HIMA BERNSTEIN [facility] [address] [place] [address] from Last 3 Months or Most Recently Relevant to Health Maintenance Advance Directives * FULL RESUSCITATION (Latest Code Status on File) Date Activated Date Inactivated Comments 04/22/2012 2:45 PM 04/23/2012 3:58 PM Care Teams Advertising Consultant Relationship Specialty Start Date End Date Kris Velazquez MD [address] [place] [address] PCP - General 04/22/12
--- OUTSIDE RECORDS SUMMARY | 2024-08-17 14:22 | XMS_ITS | Referral Summary ---
Author Organization [facility] Address [address] [place] [address] Care Team Providers Care Checker Name Role Phone Kris Velazquez MD Primary Care Provider [phone] Source Comments [facility],non-owned Affiliates and Associated Physician Practices is amultiple site organization consisting of ambulatory clinics and hospital sitesin [place], [place], [place] and [place]. This disclosure is being madepursuant to the Care Everywhere program and may not contain all information available regarding this patient. Last updated 18.[facility] Allergies No known active allergies Medications * [...] Mass Index - - Plan of Treatment Not on file Procedures Procedure Name Priority Date/Time Associated Diagnosis Comments LIPID PROFILE Routine 04/23/2012 5:41 AM CDT from Last 3 Months or Most Recently Relevant to Health Maintenance Results * LIPID PROFILE (04/23/2012 5:41 AM CDT) Cholesterol 146 <200 mg/dL [facility] Triglycerides 81 10 - 210 mg/dL [facility] HDL Cholesterol 49 >40 mg/dL [facility] LDL Calculated 81 mg/dL [facility] Chol HDL Ratio 2.98 [facility] Comment Lipid [facility] Comment: Risk Classification HDL CHOL LDL CHOL TOTAL CHOL According to NCEP (mg/dl) (mg/dL) (mg/dl) Desirable >40 <130 < 200 Borderline/High - 130-159 200-239 High - >159 > 239 The total cholesterol to HDL cholesterol ratio may be used to predict risk for coronary heart disease in untreated patients according to data reported from the [place] Study by Gregory Sanchez M.D. The predictive [...] Smith MD LAB - CHEMISTRY HIMA BERNSTEIN [facility] [address] [place] [address] from Last 3 Months or Most Recently Relevant to Health Maintenance Advance Directives * FULL RESUSCITATION (Latest Code Status on File) Date Activated Date Inactivated Comments 04/22/2012 2:45 PM 04/23/2012 3:58 PM Care Teams Checker Relationship Specialty Start Date End Date Kris Velazquez MD [address] [facility] [address] [place] [address] PCP - General 04/22/12
--- OUTSIDE RECORDS SUMMARY | 2024-08-17 14:22 | XMS_ITS | Patient Health Summary ---
Author Organization [facility] Address [address] [place] [address] Care Team Providers Care Configuration Management Specialist Name Role Phone Kris Velazquez MD Primary Care Provider [phone] Note from [facility],non-owned Affiliates and Associated Physician Practices is amultiple site organization consisting of ambulatory clinics and hospital sitesin [place], [place], [place] and [place]. This disclosure is being madepursuant to the Care Everywhere program and may not contain all information available regarding this patient. Last updated 18.[facility] Allergies No known active allergies Medications * Be aware that medications may not be up to date on this document. Alwaysverify current medications with the patient. * aspirin 81 MG chew tablet Take 81 mg by mouth once daily. * multivitamin daily (THERAGRAN) tablet Take 1 Tab by mouth daily with food. * prasugrel (EFFIENT) 10 MG tablet(Started 04/23/2012) Take 1 Tab by mouth once daily. 3 refills left * carvedilol (COREG) 3.125 MG tablet(Started 04/23/2012) Take 1 Tab by mouth 2 times daily with breakfast and dinner. 3 refills left Immunizations * INFLUENZA VACCINE(Given 04/23/2012) * INFLUENZA VACCINE, QUADR. (FLUZONE; FLULAVAL; FLUARIX; AFLURIA QUADRIVALENT; 6MO+), 0.5 ML (IIV4)(Given 05/01/2017) * iNFLUENZA VACCINE, RECOM-BENITES, QUADR. (FLUBLOCK QUADRIVALENT; 18Y+) (RIV4)(Given 04/30/2018) Social History Tobacco Use Types Packs/Day Years [...] - - Body Mass Index - - Procedures * CARDIAC PROCEDURE ORDER(Performed 05/09/2012) * LAB RESULTS ORDER(Performed 04/24/2012) * CARDIAC RHYTHM STRIP ORDER(Performed 04/24/2012) * TROPONIN I(Performed 04/23/2012) * EKG 12-LEAD(Performed 04/23/2012) Performed for Chest pain, unspecified * COMPREHENSIVE METABOLIC PANEL(Performed 04/23/2012) * CBC W AUTO DIFFERENTIAL(Performed 04/23/2012) * LIPID PROFILE(Performed 04/23/2012) * TROPONIN I(Performed 04/22/2012) * TROPONIN I(Performed 04/22/2012) * CK + CKMB PANEL(Performed 04/22/2012) * TROPONIN I(Performed 04/22/2012) * CK + CKMB PANEL(Performed 04/22/2012) * COMPREHENSIVE METABOLIC PANEL(Performed 04/22/2012) * EKG 12-LEAD(Performed 04/22/2012) Performed for Chest pain * PT PTT PANEL(Performed 04/22/2012) * BASIC METABOLIC PANEL (CALCIUM TOTAL)(Performed 04/22/2012) * CBC W AUTO DIFFERENTIAL(Performed 04/22/2012) * TROPONIN I(Performed 04/22/2012) * CARDIAC CATH CONSULT(Performed 04/22/2012) Results * CARDIAC PROCEDURE ORDER (05/09/2012 6:16 PM DIVER'S TENDER) Narrative 05/09/2012 6:16 PM DIVER'S TENDER A scan was deleted from the Results section by S Interface [[id number]] on 05/09/2012 at 6:16 PM (File: [id number]) Transcriptions Document, Scanned - 05/09/2012 6:16 PM CST Scanned Document CARDIAC SERVICES ORD ERABLES * LAB RESULTS ORDER (04/24/2012 1:39 PM CDT) Narrative Transcriptions Document, Scanned - 04/24/2012 1:39 PM CDT Scanned Document LAB - THERAPEUTIC DR UG MONITORING ORDERABLES * CARDIAC RHYTHM STRIP ORDER (04/24/2012 1:39 PM CDT) Narrative Transcriptions Document, Scanned - 04/24/2012 1:39 PM CDT Scanned Document CARDIAC SERVICES ORD ERABLES * (ABNORMAL) TROPONIN I (04/23/2012 11:20 AM CDT) Only the most recent of5 resultswithin the time period is included. Pathologist [facility] [place] Troponin I 4.89(AA) SEE BELOW ng/mL [facility] Comment: Normal <0.10 Fried Zone 0.10-0.99 Positive >=1.00 Blood specimen (specimen) BLOOD SPECIMEN / Unknown 04/23/2012 11:20 AM CDT 04/23/2012 11:20 AM CDT Praveena Barnes APRN-MATERIAL REQUISITIONER LAB - CHEMISTRY O RDERABLES [facility] [address] [place] [address] * EKG 12-LEAD (04/23/2012 11:16 AM CDT) Only the most recent of2 resultswithin the time period is included. Pathologist [facility] [place] Ventricular Rate 71 BPM [facility] Atrial Rate 71 BPM [facility] P-R Interval 164 ms [facility] QRS Duration ms 102 ms [facility] Q-T Interval ms 420 ms [facility] QTC Calculation (Bezet) 456 ms [facility] Calculated P Clyde 63 degrees [facility] Calculated R Clyde 66 degrees [facility] Calculated T Clyde 41 degrees [facility] Interpretation EKG Normal sinus rhythm Septal infarct , age undetermined Abnormal ECG When compared with ECG of 22-APR-2012 05:31, Septal infarct is now Present Borderline criteria for Inferior infarct are no longer Present Nonspecific T wave abnormality has replaced inverted T waves in Inferior leads Confirmed by PATIENCE CLARK MD ([id number]) on 04/24/2012 8:42:48 AM [facility] 04/23/2012 11:1 6 AM CDT 04/24/2012 8:42 AM CDT Narrative Transcriptions Document, Scanned - 04/24/2012 7:19 AM CDT Document, Scanned - 04/24/2012 8:44 AM CDT Keysha Palencia CHEMICAL ENGRAVER-MATERIAL REQUISITIONER ECG ORDERABLE S [facility] * (ABNORMAL) CBC W AUTO DIFFERENTIAL (04/23/2012 5:41 AM CDT) Only the most recent of2 resultswithin the time period is included. WBC 10.9(H) 4.4 - 10.7 1000/mm3 [facility] RBC 5.38 3.80 - 5.40 10X6 [facility] Hemoglobin 15.0 12.0 - 17.6 gm/dL [facility] Hematocrit 43.8 35.2 - 51.7 % [facility] MCV 81.4 80.7 - 98.3 fl [facility] MCH 27.9 26.7 - 34.0 pg [facility] MCHC 34.2 30.8 - 35.9 gm/dL [facility] RDW 13.8 12.1 - 14.9 % [facility] Platelet Count 263 153 - 416 1000/mm3 [facility] MPV 10.8 9.4 - 12.9 fl [facility] Granulocytes % 63.5 44 - 73 % [facility] Immature Granulocytes % 0.3 0 - 1 % [facility] Lymphocytes % 17.0(L) 20 - 43 % [facility] Monocytes % 18.3(H) 5 - 13 % [facility] Eosinophils % 0.6 0 - 6 % [facility] Basophils % 0.3 0 - 2 % [facility] Granulocytes Absolute 6.93 2.01 - 7.14 [facility] Immature Granulocytes Absolute 0.03 0.00 - 0.06 [facility] Lymphocytes Absolute 1.86 1.07 - 3.94 [facility] Monocytes Absolute 2.00(H) 0.26 - 1.07 [facility] Eosinophils Absolute 0.07 0.00 - 0.47 [facility] Basophils Absolute 0.03 0.00 - 0.08 [facility] Comment Manual Diff Not Indicated [facility] Blood specimen (specimen) BLOOD SPECIMEN / Unknown 04/23/2012 5:41 AM CDT 04/23/2012 5:47 AM CDT Keysha Palencia CHEMICAL ENGRAVER-MATERIAL REQUISITIONER LAB - HEMATOL OGY ORDERABLES [facility] [address] [place] [address] * (ABNORMAL) COMPREHENSIVE METABOLIC PANEL (04/23/2012 5:41 AM CDT) Only the most recent of2 resultswithin the time period is included. BUN 11 7.0 - 21.0 mg/dL [facility] Sodium 139 136 - 145 mmol/L [facility] Potassium 4.0 3.5 - 5.1 mmol/L [facility] Chloride 107 98.0 - 107.0 mmol/L [facility] Glucose 102 74 - 106 mg/dL [facility] Creatinine 0.56 0.5 - 1.3 mg/dL [facility] AST 38 5 - 40 U/L [facility] Alkaline Phosphatase 102 38 - 126 U/L [facility] Calcium 8.9 8.5 - 10.1 mg/dL [facility] Bilirubin Total 0.7 0.2 - 1.0 mg/dL [facility] Albumin 3.3(L) 3.4 - 5.0 gm/dL [facility] Protein Total 7.4 6.4 - 8.2 gm/dL [facility] CO2 25 22.0 - 30.0 mmol/L [facility] ALT 31 12 - 78 U/L [facility] eGFR by MDRD 150 mL/min/1.7 3m2 [facility] Anion Gap 7.0 [facility] Blood specimen (specimen) BLOOD SPECIMEN / Unknown 04/23/2012 5:41 AM CDT 04/23/2012 5:47 AM CDT Keysha Wright Palencia CHEMICAL ENGRAVER-MATERIAL REQUISITIONER LAB - TECHNICAL OPERATIONS MANAGER RY ORDERABLES Performing Organization Address [facility] Co de Phone Number [facility] [address] [place] [address] * LIPID PROFILE (04/23/2012 5:41 AM CDT) Cholesterol 146 <200 mg/dL [facility] Triglycerides 81 10 - 210 mg/dL [facility] HDL Cholesterol 49 >40 mg/dL [facility] LDL Calculated 81 mg/dL [facility] Chol HDL Ratio 2.98 [facility] Comment Lipid [facility] Comment: Risk Classification HDL CHOL LDL CHOL TOTAL CHOL According to NCEP (mg/dl) (mg/dL) (mg/dl) Desirable >40 <130 < 200 Borderline/High - 130-159 200-239 High - >159 > 239 The total cholesterol to HDL cholesterol ratio may be used to predict risk for coronary heart disease in untreated patients according to data reported from the [place] Study by Gregory Sanchez M.D. The predictive [...] 5:41 AM CDT 04/23/2012 5:47 AM CDT Marisa Selby MD LAB - CHEMISTRY HIMA BERNSTEIN Performing Organization Address [facility] Co de Phone Number [facility] [address] [place] [address] * (ABNORMAL) CK + CKMB PANEL (04/22/2012 5:15 PM CDT) Only the most recent of2 resultswithin the time period is included. Pathologist [facility] [place] CK 238(H) 35 - 232 U/L [facility] CK-MB 15.2(H) 0.0 - 5.0 ng/mL [facility] Interpretation CK-MB [facility] Comment: An abrupt rise/fall of CKMB over 24 hours is an acute injury pattern. Blood specimen (specimen) BLOOD SPECIMEN / Unknown 04/22/2012 5:15 PM CDT 04/22/2012 5:22 PM CDT Keysha Palencia [facility] LAB - TECHNICAL OPERATIONS MANAGER RY ORDERABLES Performing Organization Address [facility] de Phone Number [facility] [address] [place] [address] * (ABNORMAL) PT PTT PANEL (04/22/2012 4:15 AM CDT) [facility] PT 10.7 9.4 - 11.2 seconds [facility] INR 1.0 SEE BELOW [facility] Comment: 0.9-1.1 Normal 2.0-3.0 Conventional 2.5-3.5 Intensive PTT 35.9(H) 24.0 - 32.0 seconds [facility] Blood specimen (specimen) BLOOD SPECIMEN / Unknown 04/22/2012 4:15 AM CDT 04/22/2012 4:27 AM CDT Keysha Palencia [facility] LAB - COAGULA TION ORDERABLES Performing Organization Address [facility] de Phone Number [facility] [address] [place] [address] * BASIC METABOLIC PANEL (CALCIUM TOTAL) (04/22/2012 4:15 AM CDT) Pathologist [facility] [place] BUN 10 7.0 - 21.0 mg/dL [facility] Sodium 137 136 - 145 mmol/L [facility] Potassium 3.8 3.5 - 5.1 mmol/L [facility] Chloride 104 98.0 - 107.0 mmol/L [facility] CO2 25 22.0 - 30.0 mmol/L [facility] Anion Gap 8.0 [facility] Glucose 96 74 - 106 mg/dL [facility] Creatinine 0.65 0.5 - 1.3 mg/dL [facility] Calcium 9.2 8.5 - 10.1 mg/dL [facility] eGFR by MDRD 127 mL/min/1.73 m2 [facility] Blood specimen (specimen) BLOOD SPECIMEN / Unknown 04/22/2012 4:15 AM CDT 04/22/2012 4:27 AM CDT Keysha Kyle Palencia CHEMICAL ENGRAVER-MATERIAL REQUISITIONER LAB - TECHNICAL OPERATIONS MANAGER RY ORDERABLES [facility] [address] [place] [address] * CARDIAC CATH CONSULT (04/22/2012) 04/22/2012 Narrative Transcriptions Marisa Selby MD - 04/22/2012 10:20 PM CDT [facility] Cardiac Cath [facility] CARDIAC CATHETERIZATION PATIENT: [facility] PARK[facility]#: [id number] ADMIT DATE: 04/22/2012CCT#: [id number] PROCEDURE DATE: 04/22/2012DOB: 1955 PHYSICIAN: NISREEN PadillaOOM: [id number] REFERRING PHYSICIAN: BENNIE STREETER 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 He graciouslyvolunteered to be in our study. PROCEDURE: After informed consent was obtained from the patient andfamily which included, but not limited to myocardial infarction, ,stroke, alternative form of medical therapy and stress testing, thepatient was prepped and draped in the usual fashion. A 5-Austrian sheathwas placed in the right femoral artery via Seldinger technique withoutdifficulty. Next, starting with a 5-Austrian pigtail catheter, leftventriculography performed in the CAZARES projection. Left heart pullback wasperformed. Next, left and right coronary arteriography with JL4 and [id number] in multiple views. All equipment was removed. The patienttolerated the procedure well. No apparent complications. FINDINGS: HEMODYNAMICS: Please see attached diagram. There is no gradient on pullback. Leftheart filling pressures were normal. ANGIOGRAPHY: LEFT VENTRICULOGRAM: Left ventriculography in the CAZARES projection revealed severe hyperkinesisin posterior basal segment. Mild hyperkinesis in anterolateral segment. Normal contractility of the rest of the leftventricle. The ejection fraction was 40%. The LV score was 8. There wasno mitral regurgitation. CORONARY ANGIOGRAPHY: Left coronary artery: The left coronary artery was normal. The left mainwas normal. The circumflex had a 30% stenosis in the first obtusemarginal. The diagonal was small and had a 70% ostial stenosis. Right coronary artery: The dominant right coronary had 100% stenosis inits midsegment and filled the left to right collaterals. CONCLUSION: 1.Recent non-ST segment myocardial infarction due to 100% stenosis in theproximal right coronary artery. 2.LV dysfunction with ejection fraction of 40%. 3.Absence of mitral regurgitation. 4.Additional coronary artery disease with a 70% stenosis in the firstdiagonal. COMMENT: Angioplasty and medical therapy, bypass surgery and stentingwill be discussed with the patient and his family. MARISA SELBY MD HS/MEDQ #: [id number] cc:Kris Velazquez MD MEDICAL/SURGICAL CARDIAC CATHETERIZATION - Marisa Serrano MD - 04/23/2012 7:38 AM CDT [facility] Cardiac Cath [facility] CARDIAC CATHETERIZATION PATIENT: [facility]#: [id number] ADMIT DATE: 04/22/2012CCT#: [id number] PROCEDURE DATE: 04/22/2012DOB: 1955 PHYSICIAN: NISREEN PadillaOOM: [id number] REFERRING PHYSICIAN: BENNIE STREETER This patient is a 56-year-old male who presented with a [id number] infarction. Cardiac cath showed an ejection fraction of 40%,no mitral regurgitation, normal left heart hemodynamics, 70% stenosis in asmall diagonal, and 100% of the right coronary artery which filled viacollateral. I felt the culprit vessel was the right coronary artery andthat diagonal could be treated medically. PROCEDURE: After informed consent was obtained with the patient and thefamily which included, but was not limited to [place], , stroke, need foremergency bypass surgery, restenosis, stent thrombosis, alternative formof medical therapy, routine angioplasty, and bypass surgery, a 6-Frenchsheath was placed in the right femoral artery over a wire withoutdifficulty. Patient was continued on aspirin, Effient, and study drug,guiding shots were taken with the JR4 guiding catheter. Next, a 0.014Whisper wire used to locate the right coronary artery in its most distalaspect, that end sucked out of clot using a Pronto catheter, and thendirectly stented with a 3.0 x 18 mm Resolute stent, multiple high-pressureinflations. The balloon was pulled back. Guiding shots were taken inmultiple views. All equipment was removed. The patient tolerated theprocedure well. There were no apparent complications. FINDINGS: A 100% proximal right coronary artery stenosis, postthrombectomy and stenting 0% residual stenosis. CONCLUSION: Successful stenting of the right coronary artery, giving thepatient near complete revascularization except for a 70% stenosis in devang small first diagonal. COMMENT: I suspect his LV function will improve back to normal when we doa follow-up echo in the office. Thank you very much for allowing me to participate in the care of yourpatient. MARISA SELBY MD HS/MEDQ #: [id number] cc:Kris Velazquez MD MEDICAL/SURGICAL CARDIAC CATHETERIZATION - [facility] Marisa Selby MD ECHO ORDERABLES [facility] Care Teams Configuration Management Specialist Relationship Specialty Start Date End Date Kris Velazquez MD [address] [facility] [address] [address] PCP - General 04/22/12
[2024-08-17 14:33] VITALS: BP 137/75; PULSE 66; RESP 18; TEMP 36.1; O2SAT 99
--- OUTSIDE RECORDS SUMMARY | 2024-08-17 15:30 | XMS_ITS | Clinical Summary ---
Author Organization [facility] Address [address] [place] [address] Care Team Providers Care Account Services Representative Name Role Phone Kris Velazquez MD Primary Care Provider [phone] Allergies Active Allergy Reactions Criticality Noted Date [...] 08/02/2024 Assessment & Plan (08/02/2024 12:13 PM PATIENT TRANSPORT ORDERLY): To consider surgical procedure with Urology. S/P ICD (internal cardiac defibrillator) procedu re 03/11/2024 Ischemic cardiomyopathy 03/01/2024 Assessment & Plan (08/02/2024 12:13 PM PATIENT TRANSPORT ORDERLY): Doing much better with biventricular ICD. Resynchronization therapy seems to have helped. No signs or symptoms of CHF LBBB (left bundle branch block) 03/01/2024 CAD (coronary artery disease) 10/09/2023 Assessment & Plan (01/22/2024 12:33 PM CDT): Discussed meds for cardiomyopathy. Coronary artery disease invo lving [place] coronary artery of [place] heart without angina pectoris 08/04/2023 Assessment & Plan (08/04/2023 11:25 AM PATIENT TRANSPORT ORDERLY): Asymptomatic at present. Unfortunately continues to smoke. Is on beta-blockers, aspirin, clopidogrel, and atorvastatin high dose. Also now on Entresto, Jardiance and spironolactone for cardiomyopathy. Recent echo to be reviewed by Cardiology; certainly the area in the mitral valve may be of concern. I have asked the patient to discuss a possible cardiac MRI if the caterer's aide feels that this may be significant. Mixed hyperlipidemia 08/04/2023 Assessment & Plan (01/22/2024 12:33 PM CDT): Doing well continue high-dose statin Assessment & Plan (08/04/2023 11:25 AM PATIENT TRANSPORT ORDERLY): Continue statin. Cigarette nicotine dependence without complicati on 08/04/2023 Assessment & Plan (01/22/2024 12:32 PM CDT): To quit smoking soon Assessment & Plan (08/04/2023 11:26 AM PATIENT TRANSPORT ORDERLY): Of course encouraged to quit smoking. Will [...] 08/07/2012 Assessment & Plan (08/02/2024 12:15 PM PATIENT TRANSPORT ORDERLY): Check CT spine Non-ST elevation (NSTEMI) myocardial infarction (CMS/HCC) 05/17/2012 Tobacco use disorder, continuous 05/17/2012 Screening for prostate cancer Encounters Date Type Department Care Team Description 08/16/2024 Telephone [facility] Scheduling [address] [place] [address] Linda David 08/13/2024 [facility] [address] [facility] [address] [facility] [place] [phone] Chasity Herndon MA 08/13/2024 Orders Only [facility] [address] [facility] [address] [place] [address] King ChasityMARTIN Spinal stenosis, unspecified spinal region (Primary Dx) 08/13/2024 Telephone [facility] [address] [place] [address] [address] [place] [address] Magdy Eugenie 08/07/2024 1:08 PM PATIENT TRANSPORT ORDERLY - 08/07/2024 11:59 PM PATIENT TRANSPORT ORDERLY Hospital Encounter [facility] ([facility] [address] [place] [address] Kris Velazquez MD Spinal stenosis of lumbar region with neurogenic claudication Discharge Disposition: Discharge to home or self care 08/02/2024 11:15 AM PATIENT TRANSPORT ORDERLY Office Visit [facility] [address] [facility] [address] [place] [address] Kris Velazquez MD Mixed hyperlipidemia (Primary Dx); Spinal stenosis of lumbar region with neurogenic claudication; GERD without esophagitis; Ischemic cardiomyopathy; Benign prostatic hyperplasia with post-void dribbling 07/15/2024 11:30 AM PATIENT TRANSPORT ORDERLY Office Visit [facility] [address] [address] Swapna Taylor NP Encounter for staple removal (Primary Dx) 07/06/2024 4:00 PM PATIENT TRANSPORT ORDERLY Office Visit [facility] at [address] [address] Swapna Taylor NP Scalp laceration, initial encounter (Primary Dx) 06/12/2024 1:00 PM PATIENT TRANSPORT ORDERLY Ancillary Procedure [facility] [address] [place] [address] Cardiomyopathy, ischemic; Atrial fibrillation, unspecified type (HCC); ICD (implantable cardioverter-defibrill ator) in place 06/11/2024 Orders Only [facility] [address] [place] [address] [address] [place] [address] MalecEugenie Ischemic cardiomyopathy (Primary Dx); [...] on file Legal Sex Male 1:12 PM PATIENT TRANSPORT ORDERLY Gender Identity Male 07/21/2020 4:50 PM PATIENT TRANSPORT ORDERLY Sexual Orientation Straight 07/21/2020 4: 50 PM PATIENT TRANSPORT ORDERLY Obstetrics History Last Filed Vital Signs Vital Sign Reading Time Taken Comments Blood Pressure 138/78 08/02/2024 11:40 AM PATIENT TRANSPORT ORDERLY Pulse 80 08/02/2024 11:40 AM PATIENT TRANSPORT ORDERLY Temperature 36.4 C (97.6 F) 07/15/2024 11:33 AM PATIENT TRANSPORT ORDERLY Respiratory Rate 20 07/15/2024 11:33 AM PATIENT TRANSPORT ORDERLY Oxygen Saturation 98% 07/15/2024 11:33 AM PATIENT TRANSPORT ORDERLY Inhaled Oxygen Concentration - - Weight 116.6 kg (257 lb) 08/02/2024 11:40 AM PATIENT TRANSPORT ORDERLY Height 188 cm (6' 2 ) 08/02/2024 11:40 AM PATIENT TRANSPORT ORDERLY Body Mass Index 33 08/02/2024 11:40 AM PATIENT TRANSPORT ORDERLY Plan of Treatment Health Maintenance Due Date [...] history exists Medical Devices Implanted Type Area Certified Residential Medication Aide Device Identifier Shelf Expiration Date Model / Serial / Lot [employer] Synergy Xd Monorail 2.5mm 16mm 144cm Delivery System 1 Access [id number] - [id number] Implanted:Qty: 1 on 10/09/2023 by Chris Scherer MD at [facility] [employer] 06/19/2024 [id number] / / [id number] [employer] Synergy Xd Monorail 2.75mm 28mm 144cm Delivery System 1 Access [id number] - [id number] Implanted:Qty: 1 on 10/09/2023 by Chris Scherer MD at [facility] [employer] 03/15/2024 [id number] / / [id number] [employer] Lead Drt Df4 S65 Icd Promri Plexa Tachycardia Devices [id number] - [id number] - [id number] Implanted:Qty: 1 on 03/11/2024 by Yoselin Gilman MD at [facility] [employer] [id number] 03/02/2025 [id number] / [id number] / [employer] Solia S 45cm Bipolar Active Fixation Lead Pacing Steroid Eluting [id number] - [id number] - [id number] Implanted:Qty: 1 on 03/11/2024 by Yoselin Gilman MD at [facility] [employer] 12/30/2025 [id number] / [id number] / [employer] Sentus Promri Otw Quadripolar Left Ventricular Lead Icd L-85/49 573892 - [id number] - [id number] Implanted:Qty: 1 on 03/11/2024 by Yoselin Gilman MD at [facility] [employer] 12/30/2025 [id number] / [id number] / J[employer]ronik Glass & Marker Defibrillator Cardiac Acticor 7 Hf-T Qp [id number] - [id number] - [id number] Implanted:Qty: 1 on 03/11/2024 by Yoselin Gilman MD at [facility] [employer] 12/30/2025 [id number] / [id number] / [employer] Glass [employer] Marker Tyrx Absorbable Antibacterial Envelope-Large 3.3x2.9in [id number] - [id number] Implanted:Qty: 1 on 03/11/2024 by Yoselin Gilman MD at [facility] [employer] 10/11/2024 [id number] / / [id number] Procedures Procedure Name Priority Date/Time Associated Diagnosis Comments CT LUMBAR SPINE WO CONTRAST Schedule Routine, Read Routine (OP Routine) 08/07/2024 1:19 PM PATIENT TRANSPORT ORDERLY Spinal stenosis of lumbar region with neurogenic claudication POCT LIPID PANEL Routine 08/02/2024 11:4 6 AM PATIENT TRANSPORT ORDERLY Mixed hyperlipidemia SUTURE REMOVAL Routine 07/15/2024 11:47 AM PATIENT TRANSPORT ORDERLY Encounter for staple removal PA SMPL REPAIR SCALP/NECK/AX/NENITA T/TRUNK 2.6-7.5CM Routine 07/06/2024 4:32 PM PATIENT TRANSPORT ORDERLY Scalp laceration, initial encounter DEVICE CHECK - REMOTE Routine 06/11/2024 1:48 PM PATIENT TRANSPORT ORDERLY Cardiomyopathy, ischemic Atrial fibrillation, unspecified type (HCC) ICD (implantable cardioverter-defibri llator) in place PSA SCREEN Routine 09/13/2022 11:33 AM CDT Screening for prostate cancer Coronary artery disease involving [place] coronary artery of [place] heart without angina pectoris Ischemic cardiomyopathy Dyspnea on exertion COLONOSCOPY Routine 07/09/2017 from Last 3 Months or Most Recently Relevant to Health Maintenance Results * CT Lumbar Spine WO Contrast (08/07/2024 1:19 PM PATIENT TRANSPORT ORDERLY) Anatomical Region Laterality Modality Spine N/A Computed Tomogra phy 08/07/2024 3:49 PM PATIENT TRANSPORT ORDERLY Impressions 08/07/2024 3:49 PM PATIENT TRANSPORT ORDERLY 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 Consider MRI for further evaluation. No acute abnormality. Electronically signed by: Doc Ludwig MD Narrative 08/07/2024 3:49 PM PATIENT TRANSPORT ORDERLY EXAMINATION: CT of the lumbar spine without [...] * POCT lipid panel (08/02/2024 11:46 AM PATIENT TRANSPORT ORDERLY) Cholesterol, POC 121 mg/dL HDL, POC 41 mg/dL Triglycerides, POC 59 mg/dL LDL Cholesterol POC 68 mg/dL Non-HDL Cholesterol, POC 80 mg/dL Cholesterol Total, POC 121 mg/dL Capillary blood 08/02/2024 1 1:46 AM PATIENT TRANSPORT ORDERLY us Kris Velazquez MD POINT OF CARE TEST ORDERABLES Final Result * Suture Removal (07/15/2024 11:47 AM PATIENT TRANSPORT ORDERLY) Narrative Swapna Taylor NP - 07/15/2024 11:47 AM PATIENT TRANSPORT ORDERLY Swapna Taylor NP 07/15/2024 11:48 AM Suture [...] Post-removal: Antibiotic ointment applied us Swapna Taylor CONE EXAMINER IN CLINIC/BEDSIDE ORDERABL ES Final Result * PA SMPL REPAIR SCALP/NECK/AX/GENIT/TRUNK 2.6-7.5CM (07/06/2024 4:32 PM PATIENT TRANSPORT ORDERLY) Narrative Swapna Taylor NP - 07/06/2024 4:32 PM PATIENT TRANSPORT ORDERLY Swapna Taylor NP 07/06/2024 4:35 PM Laceration [...] Scar revision: no Skin repair: Repair method: Varina Number of jet: 3 Approximation: Approximation: Close Repair type: Repair type: Simple Post-procedure details: Dressing: Antibiotic ointment Procedure completion: Tolerated us Swapna Taylor CONE EXAMINER IN CLINIC/BEDSIDE ORDERABL ES Final Result * DEVICE CHECK - REMOTE (06/11/2024 1:48 PM PATIENT TRANSPORT ORDERLY) Anatomical Region Laterality Modality Other Narrative 06/19/2024 11:31 AM PATIENT TRANSPORT ORDERLY Images from the original result were not included. 06/12/2024 [employer] quarterly remote check The complete report is attached and is also available in Visit Navigator under [employer] Slow nsT alert: BiV ICD implanted March 2024 Battery Status:BARI Ap: 0% RVp: 30% BiV: 30% LABOR TRAINING MANAGER: 100% Next Appointment: 03/14/2025 No anomalies noted on remote Reviewed By Lyudmila Austin RN BSN ATTESTATION I have reviewed the device interrogation report associated with this encounter in detail. I agree with the documentation recorded/scanned into the electronic medical record. Recommendations: Continue current device follow-up. Yoselin Gilman MD Yoselin Gilman MD [facility] PA OCEDURES Final Result * PSA screen (09/13/2022 11:33 AM CDT) PSA 1.8 0.0 - 4.0 ng/mL [facility] - Comment: Chuck ECLIA methodology. According to the [place] [employer], Serum PSA should decrease and [...] 8:17 AM CDT Performed at: 01 - [address] [id number] Elementary Teacher: Dick Domingo PhD, Phone: [phone] us Kris Velazquez MD LAB BLOOD ORDERABLES Final Re sult [facility] - 01 * Colonoscopy (07/09/2017) Anatomical Region Laterality Modality Other Narrative 07/09/2017 Pt reported he had 2020 repeat in 3 years us Historical Provider ENDOSCOPY PROCEDURES Lacy l Result from Last 3 Months or Most Recently Relevant to Health Maintenance Insurance MEDICARE SOLUTIONS Real Time Translation LIFE [employer] LIFE MEDICARE SOLUTIONS [employer] MEDICARE SOLUTIONS Advance Directives For more information, please contact: [phone] * Full Code (Latest Code Status on File) Date Activated Date Inactivated Comments 10/09/2023 2:15 PM 10/10/2023 4:30 PM Care Teams Account Services Representative Relationship Specialty Start Date End Date Kris Velazquez MD [address] [address] PCP - General Internal Medicine 09/28/18
--- OUTSIDE RECORDS SUMMARY | 2024-08-17 15:30 | XMS_ITS | Clinical Summary ---
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 Gender Identity Not on file Sexual Orientation [...] Reed MD - 02/25/2019 8:20 AM CDT [facility] Endoscopy Patient Name: Mina Brady Procedure Date: [...] of Addenda: [address]; [place] [address] David Reed MD GI PROCEDURE ORDERABLES Final Re sult from Last 3 Months or Most Recently Relevant to Health Maintenance Insurance [facility] [id number] [facility] Advance Directives For more information, please contact: [phone] * Full Code (Latest Code Status on File) Date Activated Date Inactivated Comments 02/25/2019 7:16 AM 02/25/2019 10:48 AM * Full Code Date Activated Date Inactivated Comments 02/25/2016 6:43 AM 02/25/2016 9:55 AM Care Teams Fsr Relationship Specialty Start Date End Date Kris Velazquez MD PCP - General Internal Medicine 01/07/16
--- OUTSIDE RECORDS SUMMARY | 2024-08-17 15:30 | XMS_ITS | Encounter Summary ---
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
--- OUTSIDE RECORDS SUMMARY | 2024-08-17 15:30 | XMS_ITS | Encounter Summary ---
Author Organization [facility] Address [address] [facility] Attn: Epic Prelude ADT [place] [address] Care Team Providers Care Tank Truck Milk Receiver Name Role Phone Kris Velazquez MD Primary Care Provider [phone] Encounter Details Date Type Department Care Team (Late st Contact Info) Description 10/26/1990 Outpatient Historical David Chapman MD NO ADDRESS ON FILE Social History Tobacco Use Types Packs/Day Years Used Date Smoking Tobacco: Never Assessed Sex and Gender Information Value Date Recorded Sex Assigned at Not on file Legal Sex Male 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
--- OUTSIDE RECORDS SUMMARY | 2024-08-17 15:30 | XMS_ITS | Referral Summary ---
Author Organization [facility] Address [address] [place] [address] Care Team Providers Care Senior Project Leader/Team Lead Name Role Phone Kris Velazquez MD Primary Care Provider [phone] Encounters Date Type Department Care Team Description 08/16/2024 Telephone [facility] Scheduling [address] [place] [address] Linda David 08/13/2024 Telephone [facility] [address] [place] [phone] [place] 08/13/2024 Orders Only [facility] [address] [place] [address] [place] Spinal stenosis, unspecified spinal region (Primary Dx) 08/13/2024 Telephone [employer] [address] [place] [phone] Eugenie Parham 08/07/2024 1:08 PM TICKET SPECULATOR - 08/07/2024 11:59 PM TICKET SPECULATOR Hospital Encounter [facility] [address] [place] [address] Kris Velazquez MD Spinal stenosis of lumbar region with neurogenic claudication Discharge Disposition: Discharge to home or self care 08/02/2024 11:15 AM TICKET SPECULATOR Office Visit [facility] [address] [place], [place] [address] [place] [address] Kris Velazquez MD Mixed hyperlipidemia (Primary Dx); Spinal stenosis of lumbar region with neurogenic claudication; GERD without esophagitis; Ischemic cardiomyopathy; Benign prostatic hyperplasia with post-void dribbling 07/15/2024 11:30 AM TICKET SPECULATOR Office Visit [facility] at [address] [phone] Swapna Taylor NP Encounter for staple removal (Primary Dx) 07/06/2024 4:00 PM TICKET SPECULATOR Office Visit [facility] [address] [address] Swapna Taylor NP Scalp laceration, initial encounter (Primary Dx) 06/12/2024 1:00 PM TICKET SPECULATOR Ancillary Procedure [employer] [address] [facility] [address] [place] [address] Cardiomyopathy, ischemic; Atrial fibrillation, unspecified type (HCC); ICD (implantable cardioverter-defibrill ator) in place 06/11/2024 Orders Only [employer] [address] [facility] [address] [place] [address] Malec, Eugenie Ischemic cardiomyopathy (Primary [...] 08/02/2024 Assessment & Plan (08/02/2024 12:13 PM TICKET SPECULATOR): To consider surgical procedure with Urology. S/P ICD (internal cardiac defibrillator) procedu re 03/11/2024 Ischemic cardiomyopathy 03/01/2024 Assessment & Plan (08/02/2024 12:13 PM TICKET SPECULATOR): Doing much better with biventricular ICD. Resynchronization therapy seems to have helped. No signs or symptoms of CHF LBBB (left bundle branch block) 03/01/2024 CAD (coronary artery disease) 10/09/2023 Assessment & Plan (01/22/2024 12:33 PM CDT): Discussed meds for cardiomyopathy. Coronary artery disease invo lving [place] coronary artery of [place] heart without angina pectoris 08/04/2023 Assessment & Plan (08/04/2023 11:25 AM TICKET SPECULATOR): Asymptomatic at present. Unfortunately continues to smoke. Is on beta-blockers, aspirin, clopidogrel, and atorvastatin high dose. Also now on Entresto, Jardiance and spironolactone for cardiomyopathy. Recent echo to be reviewed by Cardiology; certainly the area in the mitral valve may be of concern. I have asked the patient to discuss a possible cardiac MRI if the teletype or varitype keyboard operator feels that this may be significant. Mixed hyperlipidemia 08/04/2023 Assessment & Plan (01/22/2024 12:33 PM CDT): Doing well continue high-dose statin Assessment & Plan (08/04/2023 11:25 AM TICKET SPECULATOR): Continue statin. Cigarette nicotine dependence without complicati on 08/04/2023 Assessment & Plan (01/22/2024 12:32 PM CDT): To quit smoking soon Assessment & Plan (08/04/2023 11:26 AM TICKET SPECULATOR): Of course encouraged to quit smoking. Will [...] 08/07/2012 Assessment & Plan (08/02/2024 12:15 PM TICKET SPECULATOR): Check CT spine Non-ST elevation (NSTEMI) myocardial infarction ([facility]/HCC) 05/17/2012 Tobacco use disorder, continuous 05/17/2012 [...] on file Legal Sex Male 1:12 PM TICKET SPECULATOR Gender Identity Male 07/21/2020 4:50 PM TICKET SPECULATOR Sexual Orientation Straight 07/21/2020 4: 50 PM TICKET SPECULATOR Last Filed Vital Signs Vital Sign Reading Time Taken Comments Blood Pressure 138/78 08/02/2024 11:40 AM TICKET SPECULATOR Pulse 80 08/02/2024 11:40 AM TICKET SPECULATOR Temperature 36.4 C (97.6 F) 07/15/2024 11:33 AM TICKET SPECULATOR Respiratory Rate 20 07/15/2024 11:33 AM TICKET SPECULATOR Oxygen Saturation 98% 07/15/2024 11:33 AM TICKET SPECULATOR Inhaled Oxygen Concentration - - Weight 116.6 kg (257 lb) 08/02/2024 11:40 AM TICKET SPECULATOR Height 188 cm (6' 2 ) 08/02/2024 11:40 AM TICKET SPECULATOR Body Mass Index 33 08/02/2024 11:40 AM TICKET SPECULATOR Plan of Treatment Not on file Medical Devices Implanted Type Area Screw Machine Set Up Operator Device Identifier Shelf Expiration Date Model / Serial / Lot Momspot Synergy Xd Monorail 2.5mm 16mm 144cm Delivery System 1 Access [id number] - [id number] Implanted:Qty: 1 on 10/09/2023 by Chris Scherer MD at [facility] Mom[employer] 06/19/2024 [id number] / / [id number] Golimi [employer] Genability Synergy Xd Monorail 2.75mm 28mm 144cm Delivery System 1 Access [id number] - [id number] Implanted:Qty: 1 on 10/09/2023 by Chris Scherer MD at [facility] ZupCat Sahil 03/15/2024 [id number] / / [id number] Biotronik [employer] Lead Drt Df4 S65 Icd Promri Plexa Tachycardia Devices [id number] - [id number] - [id number] Implanted:Qty: 1 on 03/11/2024 by Yoselin Gilman MD at [facility] [employer] Inc [id number] 03/02/2025 [id number] / [id number] / Biotronik Emair Solia S 45cm Bipolar Active Fixation Lead Pacing Steroid Eluting 955331 - [id number] - [id number] Implanted:Qty: 1 on 03/11/2024 by Yoselin Gilman MD at [facility] Dunamu 12/30/2025 [id number] / [id number] / Turbine Truck Enginesronik Emair Sentus Promri Otw Quadripolar Left Ventricular Lead Icd L-85/49 175457 - [id number] - [id number] Implanted:Qty: 1 on 03/11/2024 by Yoselin Gilman MD at [facility] H.BLOOM [facility] 12/30/2025 [id number] / [id number] / Turbine Truck EnginesroniYactraq Online Defibrillator Cardiac Acticor 7 Hf-T Qp 105046 - [id number] - [id number] Implanted:Qty: 1 on 03/11/2024 by Yoselin Gilman MD at [facility] [employer] 12/30/2025 [id number] / [id number] / Medtronic Emair Tyrx Absorbable Antibacterial Envelope-Large 3.3x2.9in [id number] - [id number] Implanted:Qty: 1 on 03/11/2024 by Yoselin Gilman MD at [facility] Taomee 10/11/2024 [id number] / / [id number] Procedures Procedure Name Priority Date/Time Associated Diagnosis Comments CT LUMBAR SPINE WO CONTRAST Schedule Routine, Read Routine (OP Routine) 08/07/2024 1:19 PM TICKET SPECULATOR Spinal stenosis of lumbar region with neurogenic claudication POCT LIPID PANEL Routine 08/02/2024 11:4 6 AM TICKET SPECULATOR Mixed hyperlipidemia SUTURE REMOVAL Routine 07/15/2024 11:47 AM TICKET SPECULATOR Encounter for staple removal CA SMPL REPAIR SCALP/NECK/AX/NENITA T/TRUNK 2.6-7.5CM Routine 07/06/2024 4:32 PM TICKET SPECULATOR Scalp laceration, initial encounter DEVICE CHECK - REMOTE Routine 06/11/2024 1:48 PM TICKET SPECULATOR Cardiomyopathy, ischemic Atrial fibrillation, unspecified type (HCC) ICD (implantable cardioverter-defibri llator) in place PSA SCREEN Routine 09/13/2022 11:33 AM CDT Screening for prostate cancer Coronary artery disease involving [place] coronary artery of [place] heart without angina pectoris Ischemic cardiomyopathy Dyspnea on exertion COLONOSCOPY Routine 07/09/2017 from Last 3 Months or Most Recently Relevant to Health Maintenance Results * CT Lumbar Spine WO Contrast (08/07/2024 1:19 PM TICKET SPECULATOR) Anatomical Region Laterality Modality Spine N/A Computed Tomogra phy 08/07/2024 3:49 PM TICKET SPECULATOR Impressions 08/07/2024 3:49 PM TICKET SPECULATOR 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 Consider MRI for further evaluation. No acute abnormality. Electronically signed by: MD Tanna Pennington 08/07/2024 3:49 PM TICKET SPECULATOR EXAMINATION: CT of the lumbar spine without [...] * POCT lipid panel (08/02/2024 11:46 AM TICKET SPECULATOR) Cholesterol, POC 121 mg/dL HDL, POC 41 mg/dL Triglycerides, POC 59 mg/dL LDL Cholesterol POC 68 mg/dL Non-HDL Cholesterol, POC 80 mg/dL Cholesterol Total, POC 121 mg/dL Capillary blood 08/02/2024 1 1:46 AM TICKET SPECULATOR us Kris Velazquez MD POINT OF CARE TEST ORDERABLES Final Result * Suture Removal (07/15/2024 11:47 AM TICKET SPECULATOR) Narrative Swapna Taylor, COMMISSIONER CONSERVATION OF RESOURCES - 07/15/2024 11:47 AM TICKET SPECULATOR Swapna Taylor NP 07/15/2024 11:48 AM Suture [...] appearance: Clean and pink Vera removed: Yes Fenton removed: 3 Suture and/or vera initally placed by: Me or my group Post-removal: Antibiotic ointment applied Swapna Taylor NP IN CLINIC/BEDSIDE ORDERABL ES Final Result * CA SMPL REPAIR SCALP/NECK/AX/GENIT/TRUNK 2.6-7.5CM (07/06/2024 4:32 PM TICKET SPECULATOR) Narrative Swapna Taylor NP - 07/06/2024 4:32 PM TICKET SPECULATOR Swapna Taylor NP 07/06/2024 4:35 PM Laceration [...] Scar revision: no Skin repair: Repair method: Fenton Number of vera: 3 Approximation: Approximation: Close Repair type: Repair type: Simple Post-procedure details: Dressing: Antibiotic ointment Procedure completion: Tolerated us Swapna Taylor COMMISSIONER CONSERVATION OF RESOURCES IN CLINIC/BEDSIDE ORDERABL ES Final Result * DEVICE CHECK - REMOTE (06/11/2024 1:48 PM TICKET SPECULATOR) Anatomical Region Laterality Modality Other Narrative 06/19/2024 11:31 AM TICKET SPECULATOR Images from the original result were not included. 06/12/2024 H.BLOOM quarterly remote check The complete report is attached and is also available in Visit Navigator under Stuntman Slow nsT alert: BiV ICD implanted March 2024 Battery Status:BARI Ap: 0% RVp: 30% BiV: 30% ROAD MIXER OPERATOR: 100% Next Appointment: 03/14/2025 No anomalies noted on remote Reviewed By Lyudmila Austin RN BSN ATTESTATION I have reviewed the device interrogation report associated with this encounter in detail. I agree with the documentation recorded/scanned into the electronic medical record. Recommendations: Continue current device follow-up. Yoselin Gilman MD us Yoselin Gilman MD [facility] CARDIAC SERVICES CA OCEDURES Final Result * PSA screen (09/13/2022 11:33 AM CDT) PSA 1.8 0.0 - 4.0 ng/mL [facility] - 01 Comment: Chuck ECLIA methodology. According to the [place] [employer], Serum PSA should decrease and [...] - 09/14/2022 8:17 AM CDT Performed at: [facility] [id number] Forepart [place]: Dick Domingo PhD, Phone: [phone] us Kris Velazquez MD LAB BLOOD ORDERABLES Final Re sult [facility] - 01 * Colonoscopy (07/09/2017) Anatomical Region Laterality Modality Other Narrative 07/09/2017 Pt reported he had 2020 repeat in 3 years Historical Provider ENDOSCOPY PROCEDURES Lacy l Result from Last 3 Months or Most Recently Relevant to Health Maintenance [place] [address] [place] [address] MEDICARE SOLUTIONS [facility] FOR LIFE MEDICARE SOLUTIONS FOR LIFE MEDICARE SOLUTIONS Advance Directives For more information, please contact: [phone] * Full Code (Latest Code Status on File) Date Activated Date Inactivated Comments 10/09/2023 2:15 PM 10/10/2023 4:30 PM Care Teams Senior Project Leader/Team Lead Relationship Specialty Start Date End Date Kris Velazquez MD [address] [address] PCP - General Internal Medicine 09/28/18
--- OUTSIDE RECORDS SUMMARY | 2024-08-17 15:31 | XMS_ITS | Encounter Summary ---
Author Organization [facility] Address [address] [place] [address] Phone Care Team Providers Care Visual Merchandising Assistant Name Role Phone Kris Velazquez MD Primary Care Provider [phone] Encounter Details Date Type Department Care Team (Late st Contact Info) Description 08/16/2024 Telephone [facility] Scheduling [address] [place] [address] Linda David Social History Tobacco [...] on file Legal Sex Male 1:12 PM RX SPECIALIST Gender Identity Male 07/21/2020 4:50 PM RX SPECIALIST Sexual Orientation Straight 07/21/2020 4: 50 PM RX SPECIALIST documented as of this encounter Miscellaneous Notes * Telephone Encounter - Lilly Lucero - 08/16/2024 2:50 PM CST PT Rang to get address SPECIALIST * Telephone Encounter - Suzan Dockery - 08/16/2024 2:31 PM CST Department of Neurological Surgery at [facility] Spine Intake 08/16/24 Mina Brady 1955 [id number] Kris Velazquez MD Are you a New [...] List ALL CT: Month 2024 Imaging Location: [facility] FAX Records Requested: In [facility] HT: 6'2 WT: 250 pounds BMI: [...] Pt Appt Date: 09/10/2024 Time: 10:00am Location: [facility] ([facility]) Provider ARAVIND - Rigoberto Parks Routed: Directly to [facility] Remind pt to arrive 45 min early [...] waiting, your care is being actively planned?? SPECIALIST * Telephone Encounter - Suzan Dockery - 08/16/2024 9:02 AM CST 1st attempt - no answer, LVM Dx: Spinal stenosis SPECIALIST documented in this encounter Plan of Treatment Not on file documented as of this encounter Visit Diagnoses Not on filedocumented in this encounter Care Teams Visual Merchandising Assistant Relationship Specialty Start Date End Date Kris Velazquez MD [address] [address] PCP - General Internal Medicine 09/28/18 documented as of this encounter
--- OUTSIDE RECORDS SUMMARY | 2024-08-17 15:31 | XMS_ITS | Clinical Summary ---
Author Organization [facility] Address [address] [place] [address] Care Team Providers Care Payloader Machine Operator Name Role Phone Kris Velazquez MD Primary Care Provider [phone] Source Comments [facility],non-owned Affiliates and Associated Physician Practices is amultiple site organization consisting of ambulatory clinics and hospital sitesin [place], [place], [place] and [place]. This disclosure is being madepursuant to the Care Everywhere program and may not contain all information available regarding this patient. Last updated 18.[facility] Allergies No known active allergies Medications * [...] 5:41 AM CDT) Cholesterol 146 <200 mg/dL [facility] Triglycerides 81 10 - 210 mg/dL [facility] HDL Cholesterol 49 >40 mg/dL [facility] LDL Calculated 81 mg/dL [facility] Chol HDL Ratio 2.98 [facility] Comment Lipid [facility] Comment: Risk Classification HDL CHOL LDL CHOL TOTAL CHOL According to NCEP (mg/dl) (mg/dL) (mg/dl) Desirable >40 <130 < 200 Borderline/High - 130-159 200-239 High - >159 > 239 The total cholesterol to HDL cholesterol ratio may be used to predict risk for coronary heart disease in untreated patients according to data reported from the [place] Study by Gregory Sanchez M.D. The predictive [...] Smith MD LAB - CHEMISTRY HIMA BERNSTEIN [facility] [address] [place] [address] from Last 3 Months or Most Recently Relevant to Health Maintenance Advance Directives * FULL RESUSCITATION (Latest Code Status on File) Date Activated Date Inactivated Comments 04/22/2012 2:45 PM 04/23/2012 3:58 PM Care Teams Payloader Machine Operator Relationship Specialty Start Date End Date Kris Velazquez MD [address] [place] [address] PCP - General 04/22/12
--- OUTSIDE RECORDS SUMMARY | 2024-08-17 15:31 | XMS_ITS | Patient Health Summary ---
Author Organization [facility] Address [address] [facility] [place] [address] Care Team Providers Care Pipe Manufacture Supervisor Name Role Phone Kris Velazquez MD Primary Care Provider [phone] Note from [facility],non-owned Affiliates and Associated Physician Practices is amultiple site organization consisting of ambulatory clinics and hospital sitesin [place], [place], [place] and [place]. This disclosure is being madepursuant to the Care Everywhere program and may not contain all information available regarding this patient. Last updated 18.[facility] Allergies No known active allergies Medications [...] * CARDIAC PROCEDURE ORDER (05/09/2012 6:16 PM BLOCK SETTER GYPSUM) Narrative 05/09/2012 6:16 PM BLOCK SETTER GYPSUM A scan was deleted from the Results section by S Interface [[id number]] on 05/09/2012 at 6:16 PM (File: [id number]) Transcriptions Document, Scanned - 05/09/2012 6:16 PM [...] resultswithin the time period is included. Pathologist [facility] Troponin I 4.89(AA) SEE BELOW ng/mL [facility] Comment: Normal <0.10 Fried Zone 0.10-0.99 Positive >=1.00 Blood specimen (specimen) BLOOD SPECIMEN / Unknown 04/23/2012 11:20 AM CDT 04/23/2012 11:20 AM CDT Praveena Barnes APRN-BILLING AND INSURANCE COORDINATOR LAB - CHEMISTRY O RDERABLES [facility] [address] [place] [address] * EKG 12-LEAD (04/23/2012 11:16 AM CDT) Only the most recent of2 resultswithin the time period is included. Pathologist [facility] Ventricular Rate 71 BPM [facility] Atrial Rate 71 BPM [facility] P-R Interval 164 ms [facility] QRS Duration ms 102 ms [facility] Q-T Interval ms 420 ms [facility] QTC Calculation (Bezet) 456 ms [facility] Calculated P Warners 63 degrees [facility] Calculated R Warners 66 degrees [facility] Calculated T Warners 41 degrees [facility] Interpretation EKG Normal [...] - 04/24/2012 8:44 AM CDT Keysha Palencia ENVIRONMENTAL ATTORNEY-BILLING AND INSURANCE COORDINATOR ECG ORDERABLE S [facility] * (ABNORMAL) CBC W AUTO DIFFERENTIAL (04/23/2012 5:41 AM CDT) Only the most recent of2 resultswithin the time period is included. WBC 10.9(H) 4.4 - 10.7 1000/mm3 [facility] RBC 5.38 3.80 - 5.40 10X6 [facility] Hemoglobin 15.0 12.0 - 17.6 gm/dL [facility] Hematocrit 43.8 35.2 - 51.7 % [facility] MCV 81.4 80.7 - 98.3 fl [facility] MCH 27.9 26.7 - 34.0 pg [facility] MCHC 34.2 30.8 - 35.9 gm/dL [facility] RDW 13.8 12.1 - 14.9 % [facility] Platelet Count 263 153 - 416 1000/mm3 [facility] MPV 10.8 9.4 - 12.9 fl [facility] Granulocytes % 63.5 44 - 73 % [facility] Immature Granulocytes % 0.3 0 - 1 % [facility] Lymphocytes % 17.0(L) 20 - 43 % [facility] Monocytes % 18.3(H) 5 - 13 % [facility] Eosinophils % 0.6 0 - 6 % [facility] Basophils % 0.3 0 - 2 % [facility] Granulocytes Absolute 6.93 2.01 - 7.14 [facility] Immature Granulocytes Absolute 0.03 0.00 - 0.06 [facility] Lymphocytes Absolute 1.86 1.07 - 3.94 [facility] Monocytes Absolute 2.00(H) 0.26 - 1.07 [facility] Eosinophils Absolute 0.07 0.00 - 0.47 [facility] Basophils Absolute 0.03 0.00 - 0.08 [facility] Comment Manual Diff Not Indicated [facility] Blood specimen (specimen) BLOOD SPECIMEN / Unknown 04/23/2012 5:41 AM CDT 04/23/2012 5:47 AM CDT Keysha Palencia ENVIRONMENTAL ATTORNEY-BILLING AND INSURANCE COORDINATOR LAB - HEMATOL OGY ORDERABLES [facility] [address] [place] [address] * (ABNORMAL) COMPREHENSIVE METABOLIC PANEL (04/23/2012 5:41 AM CDT) Only the most recent of2 resultswithin the time period is included. BUN 11 7.0 - 21.0 mg/dL [facility] Sodium 139 136 - 145 mmol/L [facility] Potassium 4.0 3.5 - 5.1 mmol/L [facility] Chloride 107 98.0 - 107.0 mmol/L [facility] Glucose 102 74 - 106 mg/dL [facility] Creatinine 0.56 0.5 - 1.3 mg/dL [facility] AST 38 5 - 40 U/L [facility] Alkaline Phosphatase 102 38 - 126 U/L [facility] Calcium 8.9 8.5 - 10.1 mg/dL [facility] Bilirubin Total 0.7 0.2 - 1.0 mg/dL [facility] Albumin 3.3(L) 3.4 - 5.0 gm/dL [facility] Protein Total 7.4 6.4 - 8.2 gm/dL [facility] CO2 25 22.0 - 30.0 mmol/L [facility] ALT 31 12 - 78 U/L [facility] eGFR by MDRD 150 mL/min/1.7 3m2 [facility] Anion Gap 7.0 [facility] Blood specimen (specimen) BLOOD SPECIMEN / Unknown 04/23/2012 5:41 AM CDT 04/23/2012 5:47 AM CDT Keysha Wright Palencia ENVIRONMENTAL ATTORNEY-BILLING AND INSURANCE COORDINATOR LAB - PILOT PLANT SUPERVISOR RY ORDERABLES Performing Organization Address [facility] Co de Phone Number [facility] [address] [place] [address] * LIPID PROFILE (04/23/2012 5:41 AM CDT) Cholesterol 146 <200 mg/dL [facility] Triglycerides 81 10 - 210 mg/dL [facility] HDL Cholesterol 49 >40 mg/dL [facility] LDL Calculated 81 mg/dL [facility] Chol HDL Ratio 2.98 [facility] Comment Lipid [facility] Comment: Risk Classification HDL CHOL LDL CHOL TOTAL CHOL According to NCEP (mg/dl) (mg/dL) (mg/dl) Desirable >40 <130 < 200 Borderline/High - 130-159 200-239 High - >159 > 239 The total cholesterol to HDL cholesterol ratio may be used to predict risk for coronary heart disease in untreated patients according to data reported from the [place] Study by Gregory Sanchez M.D. The predictive [...] - CHEMISTRY HIMA BERNSTEIN Performing Organization Address [facility] Co de Phone Number [facility] [address] [place] [address] * (ABNORMAL) CK + CKMB PANEL (04/22/2012 5:15 PM CDT) Only the most recent of2 resultswithin the time period is included. Pathologist [facility] CK 238(H) 35 - 232 U/L [facility] CK-MB 15.2(H) 0.0 - 5.0 ng/mL [facility] Interpretation CK-MB [facility] Comment: An abrupt rise/fall of CKMB over 24 hours is an acute injury pattern. Blood specimen (specimen) BLOOD SPECIMEN / Unknown 04/22/2012 5:15 PM CDT 04/22/2012 5:22 PM CDT Keysha Palencia [facility] LAB - PILOT PLANT SUPERVISOR RY ORDERABLES Performing Organization Address [facility] de Phone Number [facility] [address] [place] [address] * (ABNORMAL) PT PTT PANEL (04/22/2012 4:15 AM CDT) [facility] PT 10.7 9.4 - 11.2 seconds [facility] INR 1.0 SEE BELOW [facility] Comment: 0.9-1.1 Normal 2.0-3.0 Conventional 2.5-3.5 Intensive PTT 35.9(H) 24.0 - 32.0 seconds [facility] Blood specimen (specimen) BLOOD SPECIMEN / Unknown 04/22/2012 4:15 AM CDT 04/22/2012 4:27 AM CDT Keysha Palencia [facility] LAB - COAGULA TION ORDERABLES Performing Organization Address [facility] de Phone Number [facility] [address] [place] [address] * BASIC METABOLIC PANEL (CALCIUM TOTAL) (04/22/2012 4:15 AM CDT) Pathologist [facility] BUN 10 7.0 - 21.0 mg/dL [facility] Sodium 137 136 - 145 mmol/L [facility] Potassium 3.8 3.5 - 5.1 mmol/L [facility] Chloride 104 98.0 - 107.0 mmol/L [facility] CO2 25 22.0 - 30.0 mmol/L [facility] Anion Gap 8.0 [facility] Glucose 96 74 - 106 mg/dL [facility] Creatinine 0.65 0.5 - 1.3 mg/dL [facility] Calcium 9.2 8.5 - 10.1 mg/dL [facility] eGFR by MDRD 127 mL/min/1.73 m2 [facility] Blood specimen (specimen) BLOOD SPECIMEN / Unknown 04/22/2012 4:15 AM CDT 04/22/2012 4:27 AM CDT Keysha Kyle Palencia ENVIRONMENTAL ATTORNEY-BILLING AND INSURANCE COORDINATOR LAB - PILOT PLANT SUPERVISOR RY ORDERABLES [facility] [address] [place] [address] * CARDIAC CATH CONSULT (04/22/2012) 04/22/2012 Narrative Transcriptions Marisa Selby MD - 04/22/2012 10:20 PM CDT [facility] Cardiac Cath [facility] CARDIAC CATHETERIZATION PATIENT: SPENCER PARKER [facility]#: [id number] ADMIT DATE: 04/22/2012CCT#: [id number] PROCEDURE DATE: 04/22/2012DOB: 1955 PHYSICIAN: NISREEN PadillaOOM: [id number] REFERRING PHYSICIAN: BENNIE STREETER Nomi Parker is [...] and draped in the usual fashion. A 5-Angolan sheathwas placed in the right femoral artery via Seldinger technique withoutdifficulty. Next, starting with a 5-Angolan pigtail catheter, leftventriculography performed in the CAZARES projection. Left heart pullback wasperformed. Next, left and right coronary arteriography with JL4 and [id number] in multiple views. All equipment was removed. [...] his family. MARISA SELBY MD HS/MEDQ #: [id number] cc:Kris Velazquez MD MEDICAL/SURGICAL CARDIAC CATHETERIZATION - Marisa Serrano MD - 04/23/2012 7:38 AM CDT [facility] Cardiac Cath [facility] CARDIAC CATHETERIZATION PATIENT: SPENCER PARKER [facility]#: [id number] ADMIT DATE: 04/22/2012CCT#: [id number] PROCEDURE DATE: 04/22/2012DOB: 1955 PHYSICIAN: NISREEN PadillaOOM: [id number] REFERRING PHYSICIAN: BENNIE STREETER This patient is a 56-year-old male who presented with a ecc-R-mmjxodicueeldd infarction. Cardiac cath showed an ejection fraction [...] which included, but was not limited to OR, , stroke, need foremergency bypass surgery, restenosis, [...] of yourpatient. MARISA SELBY MD HS/MEDQ #: [id number] cc:Kris Velazquez MD MEDICAL/SURGICAL CARDIAC CATHETERIZATION - DP Marisa Selby MD ECHO ORDERABLES [facility] Care Teams Pipe Manufacture Supervisor Relationship Specialty Start Date End Date Kris Velazquez MD [address] [facility] [address] [place] [address] PCP - General 04/22/12
--- OUTSIDE RECORDS SUMMARY | 2024-08-17 15:31 | XMS_ITS | Referral Summary ---
Author Organization [facility] Address [address] [place] [address] Care Team Providers Care Labourers Name Role Phone Kris Velazquez MD Primary Care Provider [phone] Source Comments [facility],non-owned Affiliates and Associated Physician Practices is amultiple site organization consisting of ambulatory clinics and hospital sitesin [place], [place], [place] and [place]. This disclosure is being madepursuant to the Care Everywhere program and may not contain all information available regarding this patient. Last updated 18.[facility] Allergies No known active allergies Medications * [...] LABORATORY Triglycerides 81 10 - 210 mg/dL [facility] HDL Cholesterol 49 >40 mg/dL [facility] LDL Calculated 81 mg/dL [facility] Chol HDL Ratio 2.98 [facility] Comment Lipid [facility] Comment: Risk Classification HDL CHOL LDL CHOL TOTAL CHOL According to NCEP (mg/dl) (mg/dL) (mg/dl) Desirable >40 <130 < 200 Borderline/High - 130-159 200-239 High - >159 > 239 The total cholesterol to HDL cholesterol ratio may be used to predict risk for coronary heart disease in untreated patients according to data reported from the [place] Study by Gregory Sanchez M.D. The predictive [...] Smith MD LAB - CHEMISTRY HIMA BERNSTEIN [facility] [address] [place] [address] from Last 3 Months or Most Recently Relevant to Health Maintenance Advance Directives * FULL RESUSCITATION (Latest Code Status on File) Date Activated Date Inactivated Comments 04/22/2012 2:45 PM 04/23/2012 3:58 PM Care Teams Labourers Relationship Specialty Start Date End Date Kris Velazquez MD [address] [facility] [address] [place] [address] PCP - General 04/22/12
--- NOTE | 2024-08-17 15:49 | ED_ITS ---
HPI - General Adult General Chief complaint: Fall Stated complaint: fall on ice, hit head with lac, R side rib pain Time Seen by Provider: 08/17/24 15:10 History of Present Illness HPI narrative: 68-year-old male presenting emergency department for evaluation after having a ground level fall last night at approximately 10:00 p.m.. Patient's slipped on the ice and landed on his right arm injuring his right ribs and did strike his head on the right side. Patient is on blood thinners but did not present to the emergency department until today for evaluation. Patient does have prior history of GA Related Data Home Medications ?Medication ?Instructions ?Recorded ?Confirmed ?Last Taken ?Type aspirin 81 mg tablet 81 mg PO DAILY 12/05/21 12/05/21 12/02/21 History coQ10 (ubiquinol) 200 mg capsule 200 mg PO DAILY 12/05/21 12/05/21 Unknown History omega-3 fatty acids 300 mg capsule 300 mg PO DAILY 12/05/21 12/05/21 Unknown History turmeric 100 mg-sugar 150 1 cap PO DAILY 12/05/21 12/05/21 Unknown History mg-olive 50 mg-oreg 150 mg-capryl capsule Allergies Allergy/AdvReac Type Severity Reaction Status Date / Time succinylcholine AdvReac Muscle Verified 08/17/24 15:56 Spasms Review of Systems Review of Systems: All systems reviewed & are unremarkable except as noted in HPI and below PMFSH Past Medical History Medical History GERD (gastroesophageal reflux disease) Cardiac arrest with ventricular fibrillation During admission for STEMI Cardiomyopathy STEMI (ST elevation myocardial infarction) CAD (coronary artery disease) Hyperlipidemia Hypertension Surgical History Surgical History History of spinal surgery lumbar laminectomy History of orthopedic surgery right shoulder, right ACL, right femur Stented coronary artery Family History Family History Father Diabetes mellitus Social History Social History Smoking packs per day: 1 Smoking cigarettes per day: 20.0 Years smoked: 45 Smoking pack-years: 45.00 Smoking status: Current every day smoker Tobacco type: cigarettes Alcohol intake: current Drinks per week: 14 Substance use: never Spiritual care concerns: No Exam Narrative: APPEARANCE: Well appearing, no pain, no distress, well-nourished. HEAD: normocephalic, right-sided scalp laceration. EYES: PERRLA/EOMI, conjunctivae clear. NOSE: Normal no drainage EARS:TMS clear with good light reflex. THROAT: Pharynx clear, no exudate. NECK: Supple. No adenopathy, no masses. RESPIRATORY: Airway patent, respirations nonlabored. Clear to auscultation bilaterally, no rales, rhonchi, wheezing. CARDIOVASCULAR: Regular rate and rhythm without murmurs rubs or gallops. ABDOMINAL: Soft, nontender, nondistended, normal bowel sounds MUSCULOSKELETAL: Right upper rib tenderness to palpation NEURO: Alert. Cranial nerves II through XII intact. Good gait. Good coordination SKIN: Warm, dry. Normal Color Course Vital Signs Vital signs: Vital Signs Temperature 96.9 F L 08/17/24 14:33 Pulse Rate 66 08/17/24 14:33 Respiratory Rate 18 08/17/24 14:33 Blood Pressure 137/75 08/17/24 14:33 Pulse Oximetry 99 08/17/24 14:33 Temperature 96.9 F L 08/17/24 14:33 Pulse Rate 72 08/17/24 18:50 Respiratory Rate 19 08/17/24 18:50 Blood Pressure 121/80 08/17/24 18:50 Pulse Oximetry 93 08/17/24 18:50 Procedures Laceration Laceration 1: Date: 08/17/24 Time: 15:49 Site: scalp Side (If applicable): right Size (cm): 4 Description: linear and irregular Depth: simple, single layer Local Anesthetic: lidocaine 1% and with epi Amount of anesthesia used (mL): 4 Pre-repair: wound explored, irrigated and irrigated extensively ====== Skin Level ====== Skin layer closed with: jet Number of sutures: 6 ====== Subcutaneous Layer ====== ====== Muscle Layer ====== ====== Tendon Layer ====== Medical Decision Making [facility] Narrative Medical decision making narrative: 68-year-old male presents emergency department for evaluation for a ground level fall last night approximately 10:00 p.m.. Patient did strike his head did land on his right-sided ribs. Patient presented emergency department complaining of right-sided rib pain. Head CT was negative for acute intracranial abnormality. CT chest did show a small 3 mm pneumothorax on the right with a fracture of rib rib 1, 2 fractures of rib 5 and a fracture of rib 6. I discussed the case with surgery and they are comfortable observing the patient overnight but recommended the hospitalist admit. Chest x-ray was reordered for the morning. Patient had minimal improvement with p.o. medications and was ordered IV narcotic pain medication. Patient will also be placed on 2 L of oxygen by nasal cannula. Patient was willing to stay overnight for observation. Differential Diagnosis Differential Diagnosis: Rib fracture, rib contusion, pneumothorax, subdural hematoma, subarachnoid hemorrhage Vital Signs Vital Signs: Vital Signs Temperature 96.9 F L 08/17/24 14:33 Pulse Rate 66 08/17/24 14:33 Respiratory Rate 18 08/17/24 14:33 Blood Pressure 137/75 08/17/24 14:33 Pulse Oximetry 99 08/17/24 14:33 Temperature 96.9 F L 08/17/24 14:33 Pulse Rate 72 08/17/24 18:50 Respiratory Rate 19 08/17/24 18:50 Blood Pressure 121/80 08/17/24 18:50 Pulse Oximetry 93 08/17/24 18:50 Lab Data Lab results reviewed: Yes I reviewed the patient's lab results. Imaging Data Radiologist's impression: Impressions Head CT 08/17/24 15:42 IMPRESSION: 1. No fracture or acute intracranial process. 2. Mild to moderate scattered white matter hypoattenuation consistent with chronic small vessel ischemic disease. Ribs X-Ray 08/17/24 16:42 IMPRESSION: Limited evaluation of the right ribs secondary to positioning, likely also patient's tolerance for which cross-sectional imaging (noncontrast enhanced CT examination of the chest) is recommended for further evaluation. Cervical Spine CT 08/17/24 17:04 Impression: Extensive extraluminal air is identified to the right of midline within the soft tissues of the neck and chest, without a pneumothorax appreciated. No acute fracture within the cervical spine. Chest CT 08/17/24 17:48 IMPRESSION: Acute nondisplaced fracture of the right first rib. The right fifth rib is fractured in 2 [address] and the right sixth rib demonstrates a nondisplaced fracture. Small right-sided pneumothorax with only 3 mm of separation. No additional fractures. Discharge Plan Discharge Clinical Impression: Laceration of scalp Head injury Qualifiers: Encounter type: initial encounter Qualified Code(s): S09.90XA - Unspecified injury of head, initial encounter Fracture of rib Qualifiers: Encounter type: initial encounter Rib fracture type: multiple ribs Fracture type: closed Laterality: right Qualified Code(s): S22.41XA - Multiple fractures of ribs, right side, initial encounter for closed fracture Pneumothorax Qualifiers: Pneumothorax type: traumatic Encounter type: initial encounter Qualified Code(s): S27.0XXA - Traumatic pneumothorax, initial encounter Patient Disposition: Still a Patient Condition: Stable
[2024-08-17] MEDS: CEPHALEXIN 500 MG CAPSULE PO (15:55)
[2024-08-17] MEDS: HYDROcodone/acetaminophen (*CRX) 7.5-325 MG TABLET 1 TAB PO (15:56)
[2024-08-17] MEDS: HYDROmorphone HCL INJ (*CRX) 1 MG/ML SYR IV PUSH (18:47)
[2024-08-17 18:50] VITALS: BP 121/80; PULSE 72; RESP 19; O2SAT 93
--- NOTE | 2024-08-17 19:17 | PM.IMHP ---
H&P: HPI History of Present Illness Date/Time: 08/17/24 19:17 Chief Complaint: Rib Pain Narrative: 68 y/o F presents here with rib pain and laceration to forehead post-fall with PMH of coronary artery disease, STEMI, VFib induced cardiac arrest, cardiomyopathy, HLD, and HTN. The patient presents here from home for further evaluation of rib pain and a laceration to his right forehead after he sustained a ground level fall last night around 10:00 p.m. last night (08/16). He reports his feet went out from under him and he fell onto his right side. He reports he did strike his head and developed a laceration to the right scalp. Denies loss of consciousness. He reports he was able to control the bleeding quickly and did not feel it needed stitches. Patient then sought treatment today after he developed significant right rib pain. He denies any shortness of breath. He is currently on anticoagulation. Initial VS at presentation: 96.9? F, HR 66, RR 18, 137/75, and 99% on RA. ED workup showed: Head CT showed no fracture or acute intracranial process and mild to moderate scattered white matter hypoattenuation. Rib XR showed limited evaluation of the right ribs secondary to positioning. C-spine CT showed extensive extraluminal air to the right of midline with since the soft tissues of the neck and chest without a pneumothorax appreciated and no acute fracture within the cervical spine. Chest CT showed an acute nondisplaced fracture of the right 1st rib, right 5th rib is fractured in 2 separate places, right 6 rib demonstrates a nondisplaced fracture, small right-sided pneumothorax was only 3 mm of separation, and no additional fractures. Review of Systems Review of Systems: All systems reviewed & are unremarkable except as noted in HPI and below [facility] Past Medical History Medical History (Updated 08/17/24 @ 21:34 by Christina Fournier APRN) GERD (gastroesophageal reflux disease) Cardiac arrest with ventricular fibrillation During admission for STEMI Cardiomyopathy STEMI (ST elevation myocardial infarction) CAD (coronary artery disease) Hyperlipidemia Hypertension Surgical History Surgical History History of spinal surgery lumbar laminectomy History of orthopedic surgery right shoulder, right ACL, right femur Stented coronary artery Family History Family History Father Diabetes mellitus Social History Social History Smoking packs per day: 1 Smoking cigarettes per day: 20.0 Years smoked: 45 Smoking pack-years: 45.00 Smoking status: Current every day smoker Tobacco type: cigarettes Alcohol intake: current Drinks per week: 14 Substance use: never Spiritual care concerns: No Meds Home Medications and Allergies Home Medications ?Medication ?Instructions ?Recorded ?Confirmed ?Type aspirin 81 mg tablet 81 mg PO DAILY 12/05/21 12/05/21 History coQ10 (ubiquinol) 200 mg capsule 200 mg PO DAILY 12/05/21 12/05/21 History omega-3 fatty acids 300 mg capsule 300 mg PO DAILY 12/05/21 12/05/21 History turmeric 100 mg-sugar 150 1 cap PO DAILY 12/05/21 12/05/21 History mg-olive 50 mg-oreg 150 mg-capryl capsule atorvastatin 40 mg tablet 80 mg (2 x 40 mg) PO DAILY #90 tabs 12/08/21 Rx metoprolol tartrate 50 mg tablet 50 mg PO Q12HR #60 tabs 12/08/21 Rx sacubitril 24 mg-valsartan 26 mg 1 tab PO Q12HR #60 tabs 12/08/21 Rx tablet (Entresto) spironolactone 25 mg tablet 25 mg PO QAM #30 tabs 12/08/21 Rx ticagrelor 90 mg tablet (Brilinta) 90 mg PO Q12HR #180 tabs 12/08/21 Rx cephalexin 500 mg capsule 500 mg PO Q12H 5 days #10 caps 08/17/24 Rx oxycodone-acetaminophen 5 mg-325 1 tablet PO Q12H PRN pain 7 days 08/17/24 Rx mg tablet (Percocet) #14 tabs Allergies Allergy/AdvReac Type Severity Reaction Status Date / Time succinylcholine AdvReac Muscle Verified 08/17/24 15:56 Spasms Vital Signs Vital Signs - 24 hr 08/17/24 14:33 08/17/24 18:50 Temperature 96.9 F L Pulse Rate 66 72 Respiratory Rate 18 19 Blood Pressure 137/75 121/80 Pulse Oximetry 99 93 Exam Const: General: no acute distress Other: , male, elderly, nontoxic appearance. Uncomfortable. HENMT: Face/Nose/Sinus: Normal nares present Mouth: Yes moist mucous membranes Eyes: General: appearance normal, both eyes and all related structures Sclera: sclerae normal Pupils: Equal, round and reactive pupils present EOM: EOMs intact bilaterally Resp: Effort & Inspection: normal respiratory effort Other: Diminished breath sounds in the right lower lobe. Cardio: Rate: regular rate Rhythm: regular rhythm Other: S1-S2 present without murmur, rub, ectopy Skin: General skin exam: normal color and no rashes or lesions noted Wounds: wounds noted Other: Repair of laceration to right scalp via jet. No active bleeding or signs of infection. Neuro: Speech: normal speech Motor exam (neuro): 5/5 motor strength present throughout Sensory Exam: normal sensation Other: A&O x4 Extrem: General: normal to inspection Psych: Mental Status: mental status grossly normal Affect: normal affect Other: Good insight and judgment, pleasant Assessment and Plan Assessment and plan (1) Pneumothorax: Qualifiers: Encounter type: initial encounter Pneumothorax type: traumatic Qualified Code(s): S27.0XXA - Traumatic pneumothorax, initial encounter Code(s): J93.9 - Pneumothorax, unspecified Status: Acute Assessment and Plan: - Chest CT: Acute nondisplaced fracture of the right first rib. The right fifth rib is fractured in [address] and the right sixth rib demonstrates a nondisplaced fracture. Small right-sided pneumothorax with only 3 mm of separation. No additional fractures. - general surgery consulted - repeat CXR in a.m. - analgesics p.r.n. - observation (2) Fracture of rib: Qualifiers: Encounter type: initial encounter Fracture type: closed Laterality: right Rib fracture type: multiple ribs Qualified Code(s): S22.41XA - Multiple fractures of ribs, right side, initial encounter for closed fracture Code(s): S22.39XA - Fracture of one rib, unspecified side, initial encounter for closed fracture Status: Acute Assessment and Plan: - see above - analgesics p.r.n. - incentive spirometer Q2H (3) Head injury: Qualifiers: Encounter type: initial encounter Qualified Code(s): S09.90XA - Unspecified injury of head, initial encounter Code(s): S09.90XA - Unspecified injury of head, initial encounter Status: Acute Assessment and Plan: - Head CT: 1. No fracture or acute intracranial process. 2. Mild to moderate scattered white matter hypoattenuation consistent with chronic small vessel ischemic disease. - C-spine CT: Extensive extraluminal air is identified to the right of midline within the soft tissues of the neck and chest, without a pneumothorax appreciated. No acute fracture within the cervical spine. - analgesics p.r.n. - scalp lac repaired in ED, started on Keflex (4) Hypertension: Qualifiers: Hypertension type: primary hypertension Qualified Code(s): I10 - Essential (primary) hypertension Code(s): I10 - Essential (primary) hypertension Status: Chronic Assessment and Plan: - chronic, currently 121/80 - continue home medications - monitor Plan Diet: Heart healthy GI Prophylaxis: Not currently indicated DVT Prophylaxis: Lines: Peripheral Code Status: Full code Quality VTE Prophylaxis VTE prophylaxis: pharmacologic ordered Hospitalist MIPS Advance Care Plan I have confirmed that the patient's Advanced Care Plan is present, code status is documented, or surrogate decision maker is listed in patient medical record.: Yes Medication Reconciliation I have utilized all available resources to obtain, update and review the patients current medications (includes all prescriptions, OTC, herbals, cannabis, and nutritional supplements).: Yes
[2024-08-17 19:46] LABS: Basophils Percent Auto 0.2 % (0.2-1.2); Eosinophils Percent Auto 0.3 % (0-4.4); Hemoglobin 15.4 g/dL (14.0-18.0); Immature Granulocyte Absolute 0.02 K/mm3 (0.00-0.031); Immature Granulocyte Percent A 0.2 % (0-0.5); Lymphocytes Absolute Auto 1.77 K/mm3 (0.9-3.2); Mean Corpuscular HGB Conc 33.5 g/dl (32-36); Mean Corpuscular Hemoglobin 27.9 pg (26-34); Mean Corpuscular Volume 83.5 fl (80-100); Mean Platelet Volume 10.2 fl (7.4-10.4); Monocytes Absolute Auto 1.5 K/mm3 (0.1-0.6); Monocytes Percent Auto 16.5 % (2.6-8.5); Neutrophils Absolute Auto 5.6 K/mm3 (1.3-6.7); Neutrophils Percent Auto 62.8 % (45.5-73.1); Platelet Count Result 221 k/mm3 (150-375); Red Blood Count 5.51 M/mm3 (4.6-6.20); Red Cell Distribution Width 14.6 % (11.5-14.5); White Blood Count 8.9 K/mm3 (4.5-10.0)
[2024-08-17 19:55] LABS: Anion Gap 14 mmol/L (4-12); Blood Urea Nitrogen 14 mg/dL (9-20); Calcium 8.9 mg/dL (8.4-10.2); Carbon Dioxide 19 mmol/L (22-30); Chloride 105 mmol/L (98-107); Estimated CRCL calculation 111 ml/min; Estimated Glomerular Filt Rate > 60; Glucose 97 mg/dL (65-110); Potassium 3.6 mmol/L (3.4-5.0); Sodium 138 mmol/L (137-145)
[2024-08-17 20:34] VITALS: BP 121/80; PULSE 71; RESP 20; O2SAT 99
--- NOTE | 2024-08-17 20:52 | PC.NURSE ---
RN went into pt room asking if he would like a lidocaine patch to help with pain. Pt states it wont work and states he does not want patch at this time.
[2024-08-17 23:00] VITALS: BP 135/73; PULSE 69; RESP 14; O2SAT 97
[2024-08-17] MEDS: HYDROmorphone HCL INJ (*CRX) 1 MG/ML SYR 0.5 MG IV PUSH (23:30)
[2024-08-18 01:51] VITALS: BP 136/72; PULSE 75; RESP 17; O2SAT 96
[2024-08-18 02:27] VITALS: BMI 31.9
[2024-08-18] MEDS: MORPHINE SULFATE (*CRX) 2 MG/ML INJ IV PUSH ×2 (02:29→07:01)
--- NOTE | 2024-08-18 02:35 | ADMGEN ---
This patient, Mina Brady, was admitted to IMU Room 202-01. Patient/family oriented to hospital policies and general routines including ID bracelet, bed and alarms, visiting hours, pain management, procedures, bathroom and other care routines, personal items, smoking policy, room service/diet, and visiting hours. Information on how to activate the Rapid Response Team has been discussed. Patient/Family are encouraged to report perceived risks to care and to ask questions if they do not understand what they are told or what they should do.
[2024-08-18] MEDS: HYDROmorphone HCL INJ (*CRX) 1 MG/ML SYR 0.5 MG IV PUSH ×2 (03:29→08:16)
[2024-08-18 03:30] VITALS: O2SAT 95
[2024-08-18 04:00] VITALS: BP 120/66; PULSE 66; PULSE 68; RESP 18; TEMP 36.5; O2SAT 98
[2024-08-18 06:00] VITALS: PULSE 61
[2024-08-18 08:00] VITALS: BP 137/77; PULSE 60; PULSE 64; RESP 20; TEMP 36.7; O2SAT 99
--- NOTE | 2024-08-18 09:01 | P.PNIM_ITS ---
Progress Note: A&P Assessment and Plan (1) Pneumothorax: Qualifiers: Encounter type: initial encounter Pneumothorax type: traumatic Qualified Code(s): S27.0XXA - Traumatic pneumothorax, initial encounter Code(s): J93.9 - Pneumothorax, unspecified Status: Acute Assessment and Plan: - Chest CT: Acute nondisplaced fracture of the right first rib. The right fifth rib is fractured in 2 separate places and the right sixth rib demonstrates a nondisplaced fracture. Small right-sided pneumothorax with only 3 mm of separation. No additional fractures. - general surgery consulted - repeat CXR in a.m. - analgesics p.r.n. - observation 08/18/2024 Patient pain is under control. Plan is to continue with oxygen, pain management. Repeat chest x-ray in the morning. (2) Fracture of rib: Qualifiers: Encounter type: initial encounter Fracture type: closed Laterality: right Rib fracture type: multiple ribs Qualified Code(s): S22.41XA - Multiple fractures of ribs, right side, initial encounter for closed fracture Code(s): S22.39XA - Fracture of one rib, unspecified side, initial encounter for closed fracture Status: Acute Assessment and Plan: - see above - analgesics p.r.n. - incentive spirometer Q2H (3) Head injury: Qualifiers: Encounter type: initial encounter Qualified Code(s): S09.90XA - Unspecified injury of head, initial encounter Code(s): S09.90XA - Unspecified injury of head, initial encounter Status: Acute Assessment and Plan: - Head CT: 1. No fracture or acute intracranial process. 2. Mild to moderate scattered white matter hypoattenuation consistent with chronic small vessel ischemic disease. - C-spine CT: Extensive extraluminal air is identified to the right of midline within the soft tissues of the neck and chest, without a pneumothorax appreciated. No acute fracture within the cervical spine. - analgesics p.r.n. - scalp lac repaired in ED, started on Keflex (4) Hypertension: Qualifiers: Hypertension type: primary hypertension Qualified Code(s): I10 - Essential (primary) hypertension Code(s): I10 - Essential (primary) hypertension Status: Chronic Assessment and Plan: - chronic, currently 121/80 - continue home medications - monitor Plan Diet: Heart healthy GI Prophylaxis: Not currently indicated DVT Prophylaxis: Lines: Peripheral Code Status: Full code Subjective Date/time seen: 08/18/24 09:01 Interval history: Patient was seen during the morning rounds today. Patient was admitted for pneumothorax. Patient is feeling better. Pain controlled. Mild shortness of breath. Mild chest pain. No abdominal pain, nausea, no vomiting. Review of Systems Review of Systems: All systems reviewed & are unremarkable except as noted in HPI and below Exam Const: General: no acute distress Other: , male, elderly, nontoxic appearance. Uncomfortable. HENMT: Face/Nose/Sinus: Normal nares present Mouth: Yes moist mucous mem branes Eyes: General: appearance normal, both eyes and all related structures Sclera: sclerae normal Pupils: Equal, round and reactive pupils present EOM: EOMs intact bilaterally Resp: Effort & Inspection: normal respiratory effort Other: Diminished breath sounds in the right lower lobe. Cardio: Rate: regular rate Rhythm: regular rhythm Other: S1-S2 present without murmur, rub, ectopy Skin: General skin exam: normal color, no rashes or lesions noted and wounds noted Wounds: wounds noted Other: Repair of laceration to right scalp via jet. No active bleeding or signs of infection. Neuro: Cranial nerves: Yes Equal, round and reactive pupils present Speech: normal speech Motor exam (neuro): 5/5 motor strength present throughout Sensory Exam: normal sensation Other: A&O x4 Extrem: General: normal to inspection Psych: Mental Status: mental status grossly normal Affect: normal affect Other: Good insight and judgment, pleasant Objective Data Vital Signs Vital Signs: Vital Signs - 24 hr 08/17/24 14:33 08/17/24 18:50 08/17/24 20:34 Temperature 36.1 C L Pulse Rate 66 72 71 Respiratory Rate 18 19 20 Blood Pressure 137/75 121/80 121/80 Pulse Oximetry 99 93 99 Oxygen Delivery Oxygen Flow Rate 08/17/24 23:00 08/18/24 01:51 08/18/24 03:30 Temperature Pulse Rate 69 75 Respiratory Rate 14 17 Blood Pressure 135/73 136/72 Pulse Oximetry 97 96 95 Oxygen Delivery Nasal Cannula Oxygen Flow Rate 2 08/18/24 04:00 08/18/24 04:00 08/18/24 06:00 Temperature 36.5 C Pulse Rate 66 68 61 Respiratory Rate 18 Blood Pressure 120/66 Pulse Oximetry 98 Oxygen Delivery Oxygen Flow Rate 08/18/24 08:00 Temperature 36.7 C Pulse Rate 64 Respiratory Rate 20 Blood Pressure 137/77 Pulse Oximetry 99 Oxygen Delivery Oxygen Flow Rate Intake/Output Intake/Output: Intake & Output 08/15/24 08/16/24 08/17/24 08/18/24 23:59 23:59 23:59 23:59 Intake Total 280 Balance 280 Meds/Results Medications: Active Medications Generic Name Dose Route Start Last Admin Trade Name Freq PRN Reason Stop Dose Admin Acetaminophen 650 mg 08/17/24 19:44 Acetaminophen 325 Mg Tablet PO Q4H PRN Mild Pain (1-3) or Fever Atorvastatin Calcium 80 mg 08/18/24 09:00 Atorvastatin 40 Mg Tablet PO DAILY [facility] Clopidogrel Bisulfate 75 mg 08/18/24 09:00 Clopidogrel Bisulfate 75 Mg Tablet PO DAILY [facility] Empagliflozin 10 mg 08/18/24 09:00 Empagliflozin 10 Mg Tablet PO DAILY [facility] Hydromorphone HCl 0.5 mg 08/17/24 19:02 08/18/24 08:16 Hydromorphone Hcl Inj (*Crx) 1 Mg/Ml Syr IV PUSH 0.5 mg Q4H PRN Administration Pain Rated 7-10 Lidocaine 1 patch 08/17/24 19:44 Lidocaine 5% Patch TRANSDERM DAILY PRN Chest wall pain Metoprolol Succinate 100 mg 08/18/24 21:00 Metoprolol Succinate Ext Rel 100 Mg Tabcr PO HS [facility] Morphine Sulfate 2 mg 08/17/24 19:44 08/18/24 07:01 Morphine Sulfate (*Crx) 2 Mg/Ml Inj IV PUSH 2 mg Q4H PRN Administration Pain Rated 4-6 Naloxone HCl 0.1 mg 08/17/24 19:44 Naloxone Hcl 0.4 Mg/Ml Vial IV PUSH Q5MIN PRN Sedation Non-Formulary Medication 81 mg 08/18/24 09:00 Aspirin PO 09/17/24 08:59 DAILY [facility] Non-Formulary Medication 1 applic 08/18/24 09:00 Econazole TOPICAL 09/17/24 08:59 DAILY [facility] Non-Formulary Medication 1 applic 08/18/24 09:00 Fluocinonide TOPICAL 09/17/24 08:59 DAILY [facility] Sacubitril/Valsartan 1 tablet 08/18/24 09:00 Sacubitril/Valsartan 49-51 Mg Tablet PO BID [facility] Spironolactone 25 mg 08/18/24 09:00 Spironolactone 25 Mg Tablet PO QAM [facility] Tamsulosin HCl 0.4 mg 08/18/24 09:00 Tamsulosin Hcl 0.4 Mg Capsule PO DAILY [facility] Radiology Results: ITS Impressions Head CT 08/17/24 15:42 IMPRESSION: 1. No fracture or acute intracranial process. 2. Mild to moderate scattered white matter hypoattenuation consistent with chronic small vessel ischemic disease. Ribs X-Ray 08/17/24 16:42 IMPRESSION: Limited evaluation of the right ribs secondary to positioning, likely also patient's tolerance for which cross-sectional imaging (noncontrast enhanced CT examination of the chest) is recommended for further evaluation. Cervical Spine CT 08/17/24 17:04 Impression: Extensive extraluminal air is identified to the right of midline within the soft tissues of the neck and chest, without a pneumothorax appreciated. No acute fracture within the cervical spine. Chest CT 08/17/24 17:48 IMPRESSION: Acute nondisplaced fracture of the right first rib. The right fifth rib is fractured in 2 separate places and the right sixth rib demonstrates a nondisplaced fracture. Small right-sided pneumothorax with only 3 mm of separation. No additional fractures. Chest X-Ray 08/18/24 08:33 IMPRESSION: Bibasilar atelectasis. No interval progression of the right-sided tiny lateral pneumothorax is appreciated on plain film evaluation. Labs Labs: Laboratory Results - last 24 hr 08/17/24 19:42 WBC 8.9 RBC 5.51 Hgb 15.4 Hct 46.0 MCV 83.5 MCH 27.9 MCHC 33.5 RDW 14.6 H Plt Count 221 MPV 10.2 Immature Gran % (Auto) 0.2 Neut % (Auto) 62.8 Lymph % (Auto) 20.0 [place] % (Auto) 16.5 H Eos % (Auto) 0.3 Baso % (Auto) 0.2 Lymph # (Auto) 1.77 [place] # (Auto) 1.5 H Eos # (Auto) 0.0 Baso # (Auto) 0.0 Abs Immat Gran (auto) 0.02 Absolute Neuts (auto) 5.6 Absolute Nucleated RBC 0.000 Nucleated RBC % 0.0 Sodium 138 Potassium 3.6 Chloride 105 Carbon Dioxide 19 L Anion Gap 14 H BUN 14 D Creatinine 0.73 Estim Creat Clear Calc 111 Estimated GFR > 60 Glucose 97 Calcium 8.9 Quality VTE Prophylaxis VTE prophylaxis: pharmacologic ordered
[2024-08-18 10:00] VITALS: PULSE 60
--- NOTE | 2024-08-18 10:22 | PC.NURSE ---
After patient home meds were entered and became available this nurse went to give medications. Patient refused medications stating he would take them at home. He then told me he wasn't staying here. I spoke with patient about why he was here and what we were monitoring. I explained that by leaving AMA patient would not be receiving prescriptions. He still insisted on leaving. IV removed. Tele removed. AMA paperwork signed.
== END 2024-08-18 10:25 | disposition left against medical advice (07) ==
LOC: ANHED 18:40 → ANHIMU 08-19 12:47
PROVIDERS: Student in an Organized Health Care Education/Training Program; Admitting Provider General Practice; Emergency Provider Emergency Medicine; PCP Internal Medicine; Visit Provider Internal Medicine
DX: S27.0XXA Traumatic pneumothorax, initial encounter (principal); S22.41XA Multiple fractures of ribs, right side, initial encounter for closed fracture; S01.01XA Laceration without foreign body of scalp, initial encounter; W00.0XXA Fall on same level due to ice and snow, initial encounter; I10 Essential (primary) hypertension; I25.10 Atherosclerotic heart disease of native coronary artery without angina pectoris; I25.2 Old myocardial infarction; Z86.74 Personal history of sudden cardiac arrest; E78.5 Hyperlipidemia, unspecified; K21.9 Gastro-esophageal reflux disease without esophagitis; I42.9 Cardiomyopathy, unspecified; F17.210 Nicotine dependence, cigarettes, uncomplicated; Z79.82 Long term (current) use of aspirin; Z79.899 Other long term (current) drug therapy; S09.90XA Unspecified injury of head, initial encounter
CPT/HCPCS: 12002; 36415; 70450; 71046; 71100; 71250; 72125; 80048; 85025; 96374; 96375; 96376; 99285; A9270; G0378; J1171; J2270